=== PATIENT | male | born 1970 | race Caucasian/White ===

== ENCOUNTER 2023-10-17 14:52 | Emergency (ER) | payer MEDICAID, SELFPAY ==
[2023-10-17 14:53] VITALS: PULSE 110; RESP 15; TEMP 36.8; O2SAT 98; BMI 38.0
[2023-10-17 15:00] VITALS: BP 183/115
--- NOTE | 2023-10-17 15:07 | EDS_ITS ---
HPI History of Present Illness Chief Complaint: Dizziness Detail of Chief Complaint: Near syncopal events Informant: patient Onset/Context/Timing Onset: Today and Yesterday Context: Sudden Onset Timing: Intermittent Current Severity: Gone Maximum Severity: Moderate Narrative Narrative: 53-year-old male no significant past medical history but he states he has not seen a doctor for more than 20 years. States he recently started on amoxicillin on Sunday for an infected tooth by his dentist and last night around 7 PM started getting what he calls waves of dizziness where he feels like he might pass out. He denies any nausea, vomiting or diarrhea. He denies any melena. He denies chest pain but he has had exertional dyspnea. He smokes about 1 pack of cigarettes a day for 30 years. Denies any alcohol use for the last 15 years. Denies any recent hospitalization. No recent travel or surgery. Prior similar symptoms: No Recent Illness/Hospitalization: No PFSH PFSH Medical History no medical history no medical history Home Medications amoxicillin 500 mg capsule 500 mg PO TID 10/17/23 [History Last Taken Unknown] lisinopril 20 mg tablet 20 mg PO DAILY 30 days #30 tabs 10/17/23 [Rx Last Taken Unknown] Allergy/AdvReac Type Severity Reaction Status Date / Time morphine Allergy Mild Vomiting Verified 10/17/23 14:56 Penicillins Allergy Mild Hives Verified 10/17/23 14:56 Surgical History no surgical history no surgical history Social History Smoking Status: Current every day smoker tobacco type: cigarettes ROS ROS ED ROS Narrative Waves of dizziness. Exertional dyspnea. Review of Systems ROS Unobtainable: Denies due to encephalopathy Constitutional Constitutional ED: Denies chills or fever(s) Eyes Eyes: Denies blurry vision ENT ENT ED: Denies ear pain Cardiovascular Cardiovascular: Denies chest pain Respiratory/Chest Respiratory/Chest: Reports dyspnea and dyspnea on exertion; Denies cough Gastrointestinal Gastrointestinal: Denies abdominal pain Musculoskeletal Musculoskeletal: Denies arthralgias Integumentary Denies abscess Neurologic Neurologic: Denies headache(s) Psychiatric Psychiatric: Denies anxiety Endocrine Endocrinology: Denies cold intolerance or heat intolerance Hematologic/Lymphatic Hematologic/Lymphatic: Reports none Allergic/Immunologic Allergic/Immunologic ED: Denies mouth swelling, tongue swelling or urticaria EXAM Physical Exam Narrative Exam Narrative: 53-year-old male vital signs stable his pressure is elevated at 183/115. Tachycardic to 110. Pulse ox 90% on room air no signs hypoxia. Afebrile. HEENT exam unremarkable atraumatic. Pupils round reactive light. No droop. Normal speech. Neck nontender. Lungs clear to auscultation bilaterally. Heart tachycardic rate about 110 no murmur. Chest wall and ribs nontender. Abdomen soft nontender. Moving all 4 extremities. Calves are nontender that edema or cords. Neurologically is awake alert with no focal motor deficits. 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 Normal dorsi plantarflexion. Const Vital Signs: 10/17/23 14:53 10/17/23 14:58 10/17/23 15:00 Temperature 98.3 F Temperature Source Oral Pulse Rate 110 H Respiratory Rate 15 Respiratory Effort Normal Non-Labored Respiratory Pattern Normal Blood Pressure 183/115 H Blood Pressure Mean 137 Pulse Ox 98 Oxygen Delivery Method Room Air 10/17/23 15:28 Temperature Temperature Source Pulse Rate Respiratory Rate Respiratory Effort Respiratory Pattern Blood Pressure Blood Pressure Mean Pulse Ox 97 Oxygen Delivery Method Room Air Positive well nourished and well developed; Negative for cachectic, contractures or unkempt General Appearance ED: well developed and NAD; Negative for unkempt, cachectic, contractures, cyanotic, diaphoretic or pallor Nutritional Appearance: Negative for cachectic HEENT Negative for trauma or tenderness Eyes PERRL and EOMs intact bilaterally General Eye ED: Negative for pale conjunctiva, scleral icterus or other Neck no lymphadenopathy, supple and no JVD General: Negative for tenderness Lymph Lymphatic: Negative for other Chest Wall inspection of chest normal and palpation of chest normal Chest: Negative for other Resp normal respiratory effort and clear to auscultation bilaterally Effort and Inspection: Negative for retractions Auscultation: Negative for rales, rhonchi or wheezes Cardio regular rhythm, S1 normal heart sound, S2 normal heart sound and no murmurs; Negative for regular rate Palpation: Negative for palpable S3 or palpable S4 Rate: tachycardic; Negative for bradycardia Rhythm: Negative for abnormal rhythm GI normal to inspection, nondistended, normoactive bowel sounds, non-tender, non- distended and no masses Inspection: Negative for abdominal distention Auscultation: normoactive bowel sounds Palpation: soft; Negative for tender Bladder / Kidney Exam: No other Back/Spine no CVA tenderness General Back: Negative for CVA tenderness Cervical Spine: Negative for cervical spine tenderness Thoracic Spine / Upper Back: Negative for thoracic spinal tenderness Lumbar Spine / Lower Back: Negative for lumbar spinal tenderness Extremity normal to inspection General Extremety ED: Negative for edema or tenderness General Extremity: Negative for edema Neuro oriented x3 and CN's II-XII intact bilaterally Sensorium / Orientation: alert; Negative for orientation impaired, lethargic or stuporous Motor Exam: strength 5/5 throughout Psych mental status grossly normal Appearance: Negative for unkempt Attitude: No agitated Mood & Affect: Negative for depressed, anxious or tearful Skin no rashes or lesions noted, no wounds and skin turgor normal General Skin Exam: elasticity normal; Negative for jaundice or pallor Lesions: No lesion noted Rashes: No rashes noted Trauma: Negative for abrasion Wounds: Negative for wounds noted MDM MDM MDM Narrative Medical decision making narrative: 53-year-old male with near syncopal events the last 24 hours. Exam is benign. He is mildly tachycardic and he is hypertensive. He has not seen a physician for 20 years and is currently on no meds other than amoxicillin for a dental infection. Will undergo cardiac workup. Exam patient is doing well at 4:40 PM. He had a long discussion that he needs to follow-up with primary care physician. He needs to be started on blood pressure medication which he is agreeable to. I will write him a prescription for lisinopril 20 mg once a day and follow-up with [facility] clinic. We discussed the option of being admitted for a stress test he does not want to be admitted. Currently he is concerned with the financial implications of that. And he will follow-up as an outpatient. He knows to return if worse. He knows to stop smoking. History & Record Review Discussion w/independent historian: Patient Additional record(s) reviewed:: No prior records Lab Data Attestation: I reviewed the patient's lab results. Lab results narrative: BC shows a white count 12.8. H&H is 17 and 50. Platelets 271. BMP shows a gap of 5 normal BUN of 9 creatinine of 1. Glucose 121. Troponin is normal at 128. Chest x-ray chronic changes no acute process. Labs: Laboratory Results - last 24 hr 10/17/23 15:30 WBC 12.8 H RBC 5.57 Hgb 17.1 H Hct 50.5 MCV 90.7 MCH 30.7 MCHC 33.9 RDW Std Deviation 41.3 RDW Coeff of Nahomy 12.5 Plt Count 271 MPV 9.8 Immature Gran % (Auto) 0.400 Neut % (Auto) 80.5 H Lymph % (Auto) 11.8 L [place] % (Auto) 5.7 Eos % (Auto) 0.7 Baso % (Auto) 0.9 Absolute Neuts (auto) 10.3 H Absolute Lymphs (auto) 1.50 Nucleated RBC % 0 Sodium 138 Potassium 3.6 Chloride 108 H Carbon Dioxide 25.0 Anion Gap 5 BUN 9 Creatinine 1.01 Estim Creat Clear Calc 103.42 Est GFR (MDRD) Af Amer 100 Est GFR (MDRD) Non-Af 83 BUN/Creatinine Ratio 8.9 L Glucose 121 H Calcium 9.2 Troponin I High Sens 28 Radiography Chest X-Ray - ED: 1 View, Read by ED Physician, Heart, Lungs, Mediastinum, Bony Structures, No Acute Disease and Chronic Changes Diagnostic Testing: Chest x-ray, portable, single view shows no acute abnormality. Normal cardiac silhouette. Normal mediastinum. Single view interpreted by myself. Rhythm Strip Rhythm Strip: Sinus Tach Rate: 107 Ectopy: None EKG Initial EKG: Attestation: I personally reviewed and interpreted this EKG as follows: Interpretation: Sinus Rhythm and No Acute Injury Pattern Comments: Sinus tachycardia rate of 107. No acute signs of an RI or ischemia. No ST elevation. Prior EKG tracings: not available for review Prior: No Prior Discharge Plan Triage Chief Complaint: Dizziness ED Provider: Armaan Agudelo Dx/Rx/DC Orders Clinical Impression: Near syncope, Tobacco use, Hypertension Instructions: ED Hypertension, Established, ED Near-Fainting, Uncertain Cause Prescriptions: New lisinopril 20 mg tablet 20 mg PO DAILY 30 Days Qty: 30 0RF No Action amoxicillin 500 mg capsule 500 mg PO TID Referrals: Burt Landon [Non-Staff] - As soon as possible Activity Restrictions/Additional Instructions: Stop smoking long-term. Long-term work to lose some weight. Call and follow-up with the [facility] starts him in clinic to get a primary care Provider. For the blood pressure medication lisinopril take it 1 to 2 hours prior to bedtime. He will need to follow-up to see if this is controlling her blood pressure well enough or if they will need to change the dose or the medication. Follow-up to get an outpatient stress test due to your risk factors to ensure that you do not have any coronary artery disease or blockage. Disposition Disposition: Home, Self Care
--- NOTE | 2023-10-17 15:09 | ED.RN ---
NO OLD EKG
[2023-10-17 15:28] VITALS: O2SAT 97
[2023-10-17 15:40] LABS: Absolute Neutrophil Count 10.3 X10^3/uL (2.0-7.7); Basophil# 0.11 X10^3/uL; Basophil% 0.9 % (0-1); Eosinophil# 0.09 X10^3/uL; Eosinophils% 0.7 % (0-5); Hematocrit 50.5 % (40-54); Hemoglobin 17.1 g/dL (13.0-16.5); Lymphocyte % 11.8 % (19-41); Mean Corp Hgb Conc 33.9 g/dL (32-36); Mean Corpuscular Hgb 30.7 pg (27.0-32.0); Mean Corpuscular Volume 90.7 fL (80-94); Mean Platelet Vol. 9.8 fl (6.2-12.0); Monocyte# 0.73 X10^3/uL; Monocyte% 5.7 % (0-10); NRBC Flagged by Analyzer 0 % (0-5); Neutrophil # 10.27 X10^3/uL (2.7-7.7); Neutrophil % 80.5 % (47-70); Platelet Count 271 K/mm3 (150-450); RBC Distribution Width CV 12.5 % (11.6-14.6); RBC Distribution Width SD 41.3 fl (35.1-43.9); Red Blood Count 5.57 M/mm3 (4.6-6.2); White Blood Count 12.8 K/mm3 (4.4-11.0)
--- NOTE | 2023-10-17 15:51 | RAD_ITS ---
EXAM: XR CHEST, 1 VIEW CLINICAL INDICATION: chest pain TECHNIQUE: Frontal view of the chest. COMPARISON: No relevant prior studies available. FINDINGS: LUNGS AND PLEURAL SPACES: Unremarkable. No consolidation or edema. No pneumothorax. No effusion. HEART: Unremarkable. Cardiac silhouette not enlarged. MEDIASTINUM: Central airways and mediastinal contour are unremarkable. BONES/JOINTS: Unremarkable. No acute fracture. SOFT TISSUES: Unremarkable. RAD/Chest 1 View (Portable) IMPRESSION: No radiographic evidence of acute cardiopulmonary disease. Electronically Signed: Chivo Rosado MD at 16:38 EST ,
[2023-10-17 15:58] LABS: Anion Gap 5 (5-15); BUN 9 mg/dL (7-18); BUN/Creat Ratio 8.9 RATIO (10-20); Calcium,Total 9.2 mg/dL (8.5-10.1); Chloride 108 mmol/L (98-107); Creatinine, Serum 1.01 mg/dL (0.70-1.30); EST Glomerular Filtration Rate 83 mL/min (>60); Est Glom Filt Rate - Afr Amer 100 mL/min (>60); Estimated Creatinine Clearance 103.42 ml/min; Glucose 121 mg/dL (74-106); Potassium 3.6 mmol/L (3.5-5.1); Sodium Level 138 mmol/L (136-145); Troponin-I HS 28 pg/mL (3.0-78.0)
[2023-10-17 17:12] VITALS: BP 149/49; PULSE 106; RESP 18; O2SAT 100
== END 2023-10-17 17:13 | disposition home or self-care (01) ==
PROVIDERS: Emergency Provider Emergency Medicine; Referring Provider Emergency Medicine; Visit Provider Emergency Medicine
DX: R55 Syncope and collapse (principal); F17.210 Nicotine dependence, cigarettes, uncomplicated; I10 Essential (primary) hypertension; Z79.899 Other long term (current) drug therapy
CPT/HCPCS: 71045; 80048; 84484; 85025; 93005; 99285; J7050; A4216

== ENCOUNTER 2023-11-26 15:26 | Emergency (ER) | payer MEDICAID, SELFPAY ==
[2023-11-26 15:27] VITALS: BP 180/117; PULSE 93; RESP 18; TEMP 36.3; O2SAT 97
--- NOTE | 2023-11-26 16:00 | EKG12_ITS ---
Test Reason : CP Blood Pressure : / mmHG Vent. Rate : 090 BPM Atrial Rate : 090 BPM P-R Int : 154 ms QRS Dur : 100 ms QT Int : 380 ms P-R-T Axes : 051 000 046 degrees QTc Int : 464 ms Normal sinus rhythm Normal ECG Confirmed by MARJ COLE, MIK ([id number]), editorial cartoonist MANUEL GALLAGHER ([id number]) on 11/28/2023 9:15:50 AM Referred By: STEPH/LUIS DANIEL Confirmed By:MIK MCMAHAN MD
--- NOTE | 2023-11-26 16:24 | EDS_ITS ---
HPI History of Present Illness Chief Complaint: Palpitations PFSH PFS Medical History no medical history Home Medications amoxicillin 500 mg capsule 500 mg PO TID 10/17/23 [History Last Taken Unknown] lisinopril 20 mg tablet 20 mg PO DAILY 30 days #30 tabs 10/17/23 [Rx Last Taken Unknown] amoxicillin 875 mg-potassium clavulanate 125 mg tablet 1 tab PO BID #14 tabs 11/26/23 [Rx Last Taken Unknown] Allergy/AdvReac Type Severity Reaction Status Date / Time morphine Allergy Mild Vomiting Verified 11/26/23 15:27 Surgical History no surgical history Social History Smoking Status: Current every day smoker tobacco type: cigarettes EXAM Physical Exam Const Vital Signs: 11/26/23 15:27 11/26/23 16:29 11/26/23 17:36 Temperature 97.4 F L Temperature Source Temporal Pulse Rate 93 87 Respiratory Rate 18 17 Respiratory Effort Blood Pressure 180/117 H 143/98 H Blood Pressure Mean 138 113 Pulse Ox 97 91 Oxygen Delivery Method Room Air Room Air Room Air 11/26/23 17:37 11/26/23 17:38 11/26/23 18:00 Temperature Temperature Source Pulse Rate 81 Respiratory Rate 16 14 Respiratory Effort Normal Non-Labored Blood Pressure 167/100 H Blood Pressure Mean 122 Pulse Ox 94 Oxygen Delivery Method Room Air MDM MDM MDM Narrative Medical decision making narrative: HISTORY OF PRESENT ILLNESS: 53-year-old male presents with concern for palpitations he notes this began approximate hour ago. Notes he had nausea, diarrhea yesterday. He also notes he may have had a fever yesterday. He further states he may have a sinus infection or is concerned about COVID. The patient denies recent surgery in the last 4 weeks or immobilization in the last 3 days, denies previous diagnosis of DVT or PE, hemoptysis, unilateral leg swelling or malignancy with treatment the last 6 months or palliative. No estrogen use noted. No chest pain endorsed. No shortness of breath endorsed. No leg swelling endorsed. Patient also notes congestion, cough and sinus pressure for last month denies headache. REVIEW OF SYSTEMS: Pertinent positives: Palpitations Pertinent negatives: Chest pain, shortness of breath, leg swelling, syncope, focal weakness PHYSICAL EXAM: Nursing triage notes reviewed, Vital signs reviewed Constitutional: please see mdm HENT: MMM, left maxillary sinus TTP, Eyes: Pupils equal round and reactive to light, Extraocular muscles intact Neck: No stridor, no JVD, full neck ROM Lungs: Clear to auscultation, No wheezing or rales. No increased work of breathing, no conversational dyspnea, no accessory muscle use, no nasal flaring. No respiratory distress noted Heart: Regular rate and rhythm, No murmurs, No rubs and No gallops, 2+ distal pulses (radial, femoral, posterior tibial) in all extremities Abdomen: Soft, there is no tenderness, rigidity, rebound or guarding, no obvious peritoneal signs, no palpable pulsatile abdominal masses, no auscultated abdominal bruit : No CVAT Extremities: No edema Neuro: Alert and oriented x3, neuro exam at baseline, cranial nerves II through XII are intact. No pain with extraocular muscle movement. There is negative test of skew. 5 of 5 strength in upper and lower extremities in flexion extension. Intact sensation to light touch in upper and lower extremity dermatomes. No truncal or extremity ataxia. No dysdiadochokinesia. Normal gait. 2+ reflexes in upper and lower extremities. No meningeal signs. Negative Babinski. NIH of 0. Skin: No rash or lesions noted MEDICAL DECISION MAKING: Chief Complaint: Palpitation External records reviewed: No recent cardiac hypertension, stress test or echocardiograms noted in the chart Factors affecting care: none Social determinants of health: Denies illicit drug use History obtained from others: none Consults: none [facility] Narrative: Patient was initially hemodynamically stable, afebrile, nontoxic-appearing. Exam without focal neurodeficits. No focal cardiopulmonary normalities. Auscultation revealed regular rate and rhythm. Initial EKG revealed normal sinus rhythm with no arrhythmias I obtained a broad lab and imaging workup to further elucidate etiology patient complaints To the patient's medical 1 L normal saline I considered the following differential diagnosis: Arrhythmia, anemia, dehydration, electrolyte disturbance myocardial ischema, PE, ALL IMAGES (IF OBTAINED) HAVE BEEN PERSONALLY REVIEWED AND INTERPRETED BY MYSELF. Normal sinus rhythm, normal axis, normal intervals, ST or T wave changes to suggest myocardial ischemia, no evidence of WPW, Brugada, ARVD. Low suspicion for pulmonary embolism causing the patient's palpitations as he is low risk Wells score, no signs of right heart strain on EKG. CBC with leukocytosis, suggestive of systemic inflammation, no anemia or thrombocytopenia BMP without evidence of significant electrolyte abnormalities, no anion gap, no acute kidney injury. High-sensitivity troponin is negative, no evidence of myocardial ischemia I have personally reviewed the patient's chest x-ray. Chest x-ray is unremarkable for pulmonary edema, pneumothorax, pneumonia or focal cardiopulmonary abnormality. the Synthesis patient's history, physical exam, labs images suggest no acute life-limiting etiology. The patient reported for outpatient follow-up Patient complained of upper respiratory tract symptoms, signs infection and dental swelling. Will give prophylactic antibiotics The patient and/or family, caregivers express understanding. The patient and/or family, caregivers agrees with the plan. Shared decision making: I will have a discussion with the patient and or visitors regarding risk/benefits of further testing or admission. They will be made aware of of the risk/benefits inherent in this decision they will be given the opportunity to voice understanding. Total critical care time today provided was at least 0 minutes. This excludes separately billable procedures. Critical care time (if documented) is secondary to the patient having high probability of clinically significant/life threatening deterioration in the patient's condition which required my urgent intervention. Impression: 1. Palpitations 2. Sinus infection Dispo: Discharge Lab Data Labs: Laboratory Results - last 24 hr 11/26/23 11/26/23 16:20 16:30 WBC 12.9 H RBC 5.60 Hgb 17.4 H Hct 51.5 MCV 92.0 MCH 31.1 MCHC 33.8 RDW Std Deviation 43.6 RDW Coeff of Nahomy 12.8 Plt Count 298 MPV 10.1 Immature Gran % (Auto) 0.400 Neut % (Auto) 77.8 H Lymph % (Auto) 12.4 L [place] % (Auto) 6.9 Eos % (Auto) 1.4 Baso % (Auto) 1.1 H Absolute Neuts (auto) 10.0 H Absolute Lymphs (auto) 1.60 Nucleated RBC % 0 Sodium 140 Potassium 3.8 Chloride 107 Carbon Dioxide 26.0 Anion Gap 7 BUN 10 Creatinine 1.03 Estim Creat Clear Calc 125.75 Est GFR (MDRD) Af Amer 98 Est GFR (MDRD) Non-Af 81 BUN/Creatinine Ratio 9.7 L Glucose 116 H Calcium 9.3 Troponin I High Sens 22 Radiography Chest X-Ray - ED: Read by ED Physician Diagnostic Testing: Clinical Impression(s) from Imaging Studies Chest X-Ray 11/26/23 16:50 IMPRESSION: Normal x-ray examination of the chest. Electronically Signed: Jeremiah Prabhakar MD at 17:18 EST , Discharge Plan Triage Chief Complaint: Palpitations Other Complaint: Nausea/Vomiting/Diarrhea ED Provider: Marvin Krishnamurthy Dx/Rx/DC Orders Instructions: Infection, Bacterial Nose/Sinue, ED Palpitations Prescriptions: New amoxicillin-pot clavulanate 875-125 mg tablet 1 tab PO BID Qty: 14 0RF No Action amoxicillin 500 mg capsule 500 mg PO TID lisinopril 20 mg tablet 20 mg PO DAILY 30 Days Qty: 30 0RF Primary Care Provider: Care Physician,No Primary Referrals: Kary Landon [Non-Staff] - Activity Restrictions/Additional Instructions: Thank you for trusting us with your care today! Please take Tylenol (2 pills, 650 mg), ibuprofen (2 pills, 400 mg) every 6 hours as needed for pain and fever control. Please take all antibiotics as prescribed. Please take entire course of course complete Please return to the emergency department if your symptoms change or worsen. Please follow with your primary care physician for further outpatient evaluation and management. Disposition Disposition: Home, Self Care Capacity Legal Marketing Assistant Manager Reflex Medical hold order details:: IF a medical hold is selected below, a suggested order for a MEDICAL HOLD will reflex upon signing the document. Next of kin: [place] law dictates a PRIORITY LIST for identifying legal decision-maker/legal next of kin in the following order (LNOK): 1st: The patient?s legal guardian, if any 2nd: The patient's spouse (if status is questionable, consult Risk Management) 3rd: The patient?s adult child(lazara) (majority, if multiple children) 4th: The patient?s parents 5th: The patient?s adult siblings (majority, if multiple children siblings)
[2023-11-26 16:26] VITALS: BMI 37.2
[2023-11-26 16:29] VITALS: BP 143/98; PULSE 87; RESP 17; O2SAT 91
--- NOTE | 2023-11-26 16:50 | RAD_ITS ---
STUDY: X-RAY CHEST REASON FOR EXAM: Male, 53 years old. chest pain TECHNIQUE: Single AP portable view of the chest. COMPARISON: 10/17/2023 FINDINGS: The lungs are clear and expanded. There is no demonstrated pleural abnormality. Normal size heart. Normal mediastinum and michael. Normal visualized pulmonary arteries. Normal visualized aortic arch and descending thoracic aorta. Normal visualized thoracic spine. Normal visualized ribs, clavicles, and shoulders. There is no demonstrated abnormality of the visualized soft tissue structures of the upper abdomen. RAD/Chest 1 View (Portable) IMPRESSION: Normal x-ray examination of the chest. Electronically Signed: Jeremiah Prabhakar MD at 17:18 [facility] ,
[2023-11-26] MEDS: 0.9% Normal Saline (1000mL) 1,000 ML 1000 ML IV (17:06)
[2023-11-26 17:07] LABS: Basophil# 0.14 X10^3/uL; Basophil% 1.1 % (0-1); Eosinophil# 0.18 X10^3/uL; Eosinophils% 1.4 % (0-5); Hematocrit 51.5 % (40-54); Hemoglobin 17.4 g/dL (13.0-16.5); Lymphocyte % 12.4 % (19-41); Mean Corp Hgb Conc 33.8 g/dL (32-36); Mean Corpuscular Hgb 31.1 pg (27.0-32.0); Mean Platelet Vol. 10.1 fl (6.2-12.0); Monocyte# 0.89 X10^3/uL; Monocyte% 6.9 % (0-10); NRBC Flagged by Analyzer 0 % (0-5); Neutrophil % 77.8 % (47-70); Platelet Count 298 K/mm3 (150-450); RBC Distribution Width CV 12.8 % (11.6-14.6); RBC Distribution Width SD 43.6 fl (35.1-43.9); White Blood Count 12.9 K/mm3 (4.4-11.0)
[2023-11-26 17:22] LABS: Anion Gap 7 (5-15); BUN 10 mg/dL (7-18); BUN/Creat Ratio 9.7 RATIO (10-20); Calcium,Total 9.3 mg/dL (8.5-10.1); Chloride 107 mmol/L (98-107); Creatinine, Serum 1.03 mg/dL (0.70-1.30); EST Glomerular Filtration Rate 81 mL/min (>60); Est Glom Filt Rate - Afr Amer 98 mL/min (>60); Estimated Creatinine Clearance 125.75 ml/min; Glucose 116 mg/dL (74-106); Potassium 3.8 mmol/L (3.5-5.1); Sodium Level 140 mmol/L (136-145); Troponin-I HS 22 pg/mL (3.0-78.0)
[2023-11-26 17:37] VITALS: RESP 16
[2023-11-26 18:00] VITALS: BP 167/100; PULSE 81; RESP 14; O2SAT 94
== END 2023-11-26 18:31 | disposition home or self-care (01) ==
PROVIDERS: Emergency Provider Emergency Medicine; Visit Provider Emergency Medicine
DX: R00.2 Palpitations (principal); R11.2 Nausea with vomiting, unspecified; J32.9 Chronic sinusitis, unspecified; R19.7 Diarrhea, unspecified; F17.210 Nicotine dependence, cigarettes, uncomplicated
CPT/HCPCS: 71045; 80048; 84484; 85025; 87631; 93005; 96360; 99285; J7030; A4216

== ENCOUNTER 2024-02-26 22:01 | Emergency (ER) | payer MEDICAID, SELFPAY ==
[2024-02-26 22:02] VITALS: BP 160/97; PULSE 101; RESP 15; TEMP 36.6; BMI 37.3
--- NOTE | 2024-02-26 23:17 | EDS_ITS ---
HPI History of Present Illness Chief Complaint: Allergic Reaction Informant: patient Onset/Context/Timing Onset: Month(s) Context: Gradual Onset Timing: Intermittent Quality: Swelling Location: Throat Worsened by: Nothing Relieved by: Urination Narrative Narrative: Patient presents with possible allergic reaction that has been intermittent for months. Patient states that all of his symptoms started after he was started on lisinopril and hydrochlorothiazide for his blood pressure. Patient states he has stopped taking the hydrochlorothiazide for the past few days. Patient states he thinks this is all due to his lisinopril. Patient states that tonight he felt like his throat was swelling. Patient states it has gradually gotten worse. Patient states it is starting to improve since he arrived in the emergency department. Patient states it got better when he stood and ambulated to the bathroom and urinated. Patient states nothing makes it worse. Patient admits to some subjective fevers. Patient admits to some bilateral ear pain. Patient also states he is having a cough with some white and clear sputum. [facility] Medical History (Updated 02/27/24 @ 01:[address] Desmond Rincon DO) Hypertension Nasal polyps Home Medications lisinopril 20 mg tablet 20 mg PO DAILY 30 days #30 tabs 10/17/23 [Rx Last Taken Unknown] Allergy/AdvReac Type Severity Reaction Status Date / Time morphine Allergy Mild Vomiting Verified 02/26/24 22:12 Penicillins AdvReac Intermediate Shortness Verified 02/26/24 22:12 of breath Surgical History no surgical history no surgical history Social History (Updated 02/26/24 @ 23:[address] Desmond Rincon DO) Smoking Status: Current every day smoker tobacco type: cigarettes substance use type: marijuana ROS ROS ED Constitutional Constitutional ED: Reports fever(s) and subjective; Denies chills Eyes Eyes: Reports blurry vision; Denies diplopia ENT ENT ED: Reports ear pain left and sore throat; Denies rhinorrhea Cardiovascular Cardiovascular: Reports chest pain and palpitations Respiratory/Chest Respiratory/Chest: Reports cough and dyspnea Gastrointestinal Gastrointestinal: Reports abdominal pain and nausea; Denies vomiting Genitourinary Genitourinary ED: Denies dysuria or hematuria Musculoskeletal Musculoskeletal: Reports back pain and neck pain Integumentary Reports rash Neurologic Neurologic: Reports headache(s) Allergic/Immunologic Allergic/Immunologic ED: Denies mouth swelling or tongue swelling EXAM Physical Exam Const Vital Signs: 02/26/24 22:02 02/26/24 23:25 Temperature 97.8 F Temperature Source Oral Pulse Rate 101 H 93 Respiratory Rate 15 19 H Blood Pressure 160/97 H 138/86 H Blood Pressure Mean 118 103 Pulse Ox 99 Oxygen Delivery Method Room Air Room Air Positive well nourished and well developed General Appearance ED: well developed and NAD HEENT Reports TM's clear and moist mucous membranes HEENT Narrative: Oropharynx is clear. Airway is patent. There is no pharyngeal edema noted. Tympanic Membrane ED: Yes TM's clear bilateral Eyes PERRL and EOMs intact bilaterally Neck supple and no JVD Resp normal respiratory effort and clear to auscultation bilaterally Cardio regular rate and regular rhythm GI non-tender and non-distended Palpation: soft Extremity normal to inspection General Extremety ED: Negative for edema or tenderness General Extremity: Negative for edema Neuro oriented x3, CN's II-XII intact bilaterally and no sensory deficits noted Sensorium / Orientation: alert Motor Exam: strength 5/5 throughout Psych mental status grossly normal Skin no rashes or lesions noted and skin turgor normal MDM MDM MDM Narrative Medical decision making narrative: Differential diagnosis includes medication side effect, electrolyte abnormality, anxiety, allergic reaction, pneumonia, urinary tract infection, and viral illness. Chest x-ray will be obtained to assess for pneumonia and pneumothorax. CBC will be obtained to assess for leukocytosis and anemia. Basic metabolic profile will be obtained to assess for electrolyte abnormality and renal function. Urinalysis will be obtained to assess for urinary tract infection and hematuria. COVID-19, influenza, and RSV PCR will be obtained to assess for viral infection. Lab Data Attestation: I reviewed the patient's lab results. Lab results narrative: CBC was reviewed. There is a mild leukocytosis of 12.1. Hemoglobin was slightly elevated at 17.2. The remainder is essentially within normal limits. Basic metabolic profile was reviewed and was within normal limits. Urinalysis was reviewed. There is no evidence of urinary tract infection or hematuria. COVID-19 PCR was reviewed and was negative. Influenza PCR was reviewed and was negative for influenza A and influenza B. RSV PCR was reviewed and was negative. Labs: Laboratory Results - last 24 hr 02/26/24 02/26/24 22:30 23:50 WBC 12.1 H RBC 5.54 Hgb 17.2 H Hct 50.9 MCV 91.9 MCH 31.0 MCHC 33.8 RDW Std Deviation 42.9 RDW Coeff of Nahomy 12.5 Plt Count 281 MPV 10.3 Immature Gran % (Auto) 0.200 Neut % (Auto) 72.0 H Lymph % (Auto) 17.6 L [place] % (Auto) 7.5 Eos % (Auto) 1.7 Baso % (Auto) 1.0 Absolute Neuts (auto) 8.7 H Absolute Lymphs (auto) 2.12 Nucleated RBC % 0 Sodium 139 Potassium 3.8 Chloride 104 Carbon Dioxide 27.0 Anion Gap 8 BUN 11 Creatinine 1.29 Estim Creat Clear Calc 97.85 Est GFR (MDRD) Af Amer 75 Est GFR (MDRD) Non-Af 62 BUN/Creatinine Ratio 8.5 L Glucose 99 Calcium 9.5 Urine Color Straw Urine Clarity Clear Urine pH 7.0 Ur Specific [place] 1.005 Urine Protein Negative Urine Glucose (UA) Normal Urine Ketones 15 H Urine Occult Blood Negative Urine Nitrite Negative Urine Bilirubin Negative Urine Urobilinogen Normal Ur Leukocyte Esterase Negative Urine RBC 0 SEEN Urine WBC 0 SEEN Ur Squamous Epith Cells 0 SEEN Urine Bacteria 0 SEEN Urine Mucus 0 SEEN Radiography Chest X-Ray - ED: 2 View, Read by ED Physician, Read by Radiologist and No Acute Disease Diagnostic Testing: Clinical Impression(s) from Imaging Studies Chest X-Ray 02/26/24 23:24 IMPRESSION: No acute findings in the chest. Electronically Signed: Surendra Klein MD at 0:53 EDT , PA and lateral chest x-ray was obtained. There are 2 views. On my independent interpretation, lung chapman are clear. There is normal cardiac silhouette. Bony thorax is normal. There is no acute process noted. Radiologist also interpreted the x-ray and agrees. Treatment and Re-Evaluation :: Patient was advised of his findings. Patient was instructed to follow-up with his primary care physician in 3 to 5 days for reevaluation. Patient was also instructed to contact his primary care physician tomorrow to see if his medications need to be changed. Patient was instructed to return if worse in any way. Patient understood and was agreeable with the plan. All questions were answered. Discharge Plan Triage Chief Complaint: Allergic Reaction ED Provider: Desmond Rincon Dx/Rx/DC Orders Clinical Impression: Medication side effect, Hypertension Instructions: ED Drug Reaction, Other Prescriptions: No Action lisinopril 20 mg tablet 20 mg PO DAILY 30 Days Qty: 30 0RF Primary Care Provider: Greer Patel Referrals: Greer Patel, [employer] DEVELOPER-[employer] [Primary Care Provider] - 3-5 Days (Call the office tomorrow to discuss changes in your blood pressure medication) Disposition Disposition: Home, Self Care
--- NOTE | 2024-02-26 23:24 | RAD_ITS ---
EXAM: XR CHEST, 2 VIEWS CLINICAL INDICATION: Cough TECHNIQUE: Frontal and lateral views of the chest. COMPARISON: 11/26/2023. FINDINGS: LUNGS AND PLEURAL SPACES: Unremarkable. No consolidation or edema. No pneumothorax. No effusion. HEART: Unremarkable. Cardiac silhouette not enlarged. MEDIASTINUM: Central airways and mediastinal contour are unremarkable. BONES/JOINTS: Degenerative changes of the spine. No acute fracture. SOFT TISSUES: Unremarkable. RAD/Chest PA and Lateral IMPRESSION: No acute findings in the chest. Electronically Signed: Surendra Klein MD at 0:53 EDT ,
[2024-02-26 23:25] VITALS: BP 138/86; PULSE 93; RESP 19; O2SAT 99
[2024-02-26 23:31] LABS: Absolute Lymphocyte Count 2.12 X10^3/uL (0.83-4.51); Absolute Neutrophil Count 8.7 X10^3/uL (2.0-7.7); Basophil# 0.12 X10^3/uL; Eosinophil# 0.21 X10^3/uL; Eosinophils% 1.7 % (0-5); Hematocrit 50.9 % (40-54); Hemoglobin 17.2 g/dL (13.0-16.5); Lymphocyte # 2.12 X10^3/ul (0.83-4.51); Lymphocyte % 17.6 % (19-41); Mean Corp Hgb Conc 33.8 g/dL (32-36); Mean Corpuscular Volume 91.9 fL (80-94); Mean Platelet Vol. 10.3 fl (6.2-12.0); Monocyte# 0.91 X10^3/uL; Monocyte% 7.5 % (0-10); NRBC Flagged by Analyzer 0 % (0-5); Neutrophil # 8.67 X10^3/uL (2.7-7.7); Platelet Count 281 K/mm3 (150-450); RBC Distribution Width CV 12.5 % (11.6-14.6); RBC Distribution Width SD 42.9 fl (35.1-43.9); Red Blood Count 5.54 M/mm3 (4.6-6.2); White Blood Count 12.1 K/mm3 (4.4-11.0)
[2024-02-26 23:46] LABS: Anion Gap 8 (5-15); BUN 11 mg/dL (7-18); BUN/Creat Ratio 8.5 RATIO (10-20); Calcium,Total 9.5 mg/dL (8.5-10.1); Chloride 104 mmol/L (98-107); Creatinine, Serum 1.29 mg/dL (0.70-1.30); EST Glomerular Filtration Rate 62 mL/min (>60); Est Glom Filt Rate - Afr Amer 75 mL/min (>60); Estimated Creatinine Clearance 97.85 ml/min; Glucose 99 mg/dL (74-106); Potassium 3.8 mmol/L (3.5-5.1); Sodium Level 139 mmol/L (136-145)
[2024-02-27 00:01] LABS: Bacteria 0 SEEN /hpf (None Seen); Mucous, Urine 0 SEEN /hpf (<or=2+); Red Blood Cells-Urine 0 SEEN /hpf (0-5); Squamous Epithelial Cells - UA 0 SEEN /hpf (0-5); White Blood Cells 0 SEEN /hpf (0-5)
[2024-02-27 00:12] LABS: Color, Urine Straw (Yellow); Glucose, Dipstick Normal (Normal); Ketone-Dipstick 15 mg/dl (Negative); Leukocyte Esterase-Dipstick Negative /ul (Negative); Nitrite-Dipstick Negative (Negative); Occult Blood-Urine Negative /ul (Negative); Protein-Dipstick Negative (Negative); Specific Gravity, Urine 1.005 (1.002-1.030); Urine Bilirubin Dipstick Negative (Negative); Urine Clarity Clear (Clear); Urine Urobilinogen Normal (Normal)
[2024-02-27 01:33] VITALS: BP 145/90; PULSE 83; RESP 16; TEMP 36.6; O2SAT 97
== END 2024-02-27 01:35 | disposition home or self-care (01) ==
PROVIDERS: Emergency Provider Emergency Medicine; PCP Nurse Practitioner Family; Visit Provider Emergency Medicine
DX: F17.210 Nicotine dependence, cigarettes, uncomplicated (principal); I10 Essential (primary) hypertension; R07.9 Chest pain, unspecified; R05.9 Cough, unspecified; R06.00 Dyspnea, unspecified; R51.9 Headache, unspecified; Z79.899 Other long term (current) drug therapy; T46.4X5A Adverse effect of angiotensin-converting-enzyme inhibitors, initial encounter
CPT/HCPCS: 71046; 80048; 81001; 85025; 87631; 99284; A4216

== ENCOUNTER 2024-05-27 16:14 | Emergency (ER) | payer MEDICAID, SELFPAY ==
[2024-05-27 16:15] VITALS: BP 171/120; PULSE 123; RESP 18; TEMP 36.6; O2SAT 98; BMI 35.7
--- NOTE | 2024-05-27 16:37 | CT_ITS ---
STUDY: CT ABDOMEN AND PELVIS WITHOUT CONTRAST REASON FOR EXAM: Male, 54 years old. Right flank pain RADIATION DOSAGE (If Supplied By Facility): CTDIvol = ( 21.99 ) mGy, DLP = ( 1085.91 ) mGycm TECHNIQUE: Transaxial images were obtained from the dome of the diaphragm to the symphysis pubis without oral contrast, and without intravenous contrast. Sagittal and coronal images were reconstructed. Individualized dose optimization techniques were used for this CT. COMPARISON: None. FINDINGS: The visualized lung bases are unremarkable. The visualized portions of the heart are within normal limits. Normal liver. The gallbladder is contracted. Normal spleen. Normal pancreas. Normal bilateral adrenal glands. Normal right kidney. Normal left kidney. Normal visualized stomach. Normal small intestine. Normal colon. The appendix is visualized and appears normal. Normal abdominal aorta. Normal inferior vena cava. Normal retroperitoneum. Normal urinary bladder. Normal abdominal wall. Normal osseous structures. CT/Abdomen/Pelvis without Cont IMPRESSION: Normal unenhanced CT of the abdomen and pelvis. Electronically Signed: Jeremiah Prabhakar MD at 17:36 EDT ,
--- NOTE | 2024-05-27 16:38 | EKG12_ITS ---
Test Reason : CP Blood Pressure : / mmHG Vent. Rate : 112 BPM Atrial Rate : 112 BPM P-R Int : 142 ms QRS Dur : 096 ms QT Int : 342 ms P-R-T Axes : 056 -28 056 degrees QTc Int : 466 ms Sinus tachycardia Otherwise normal ECG Confirmed by BLAS COLE, DARLEEN ([id number]), editor managing newspaper MANUEL GALLAGHER ([id number]) on 05/29/2024 10:35:52 A M Referred By: KAREL/CARLA Confirmed By:NELIA ODONNELL MD
--- NOTE | 2024-05-27 16:50 | RAD_ITS ---
STUDY: X-RAY CHEST REASON FOR EXAM: Male, 54 years old. chest pain TECHNIQUE: Single AP portable view of the chest. COMPARISON: 02/26/2024 FINDINGS: The lungs are clear and expanded. There is no demonstrated pleural abnormality. Normal size heart. Normal mediastinum and michael. Normal visualized pulmonary arteries. Normal visualized aortic arch and descending thoracic aorta. Normal visualized thoracic spine. Normal visualized ribs, clavicles, and shoulders. There is no demonstrated abnormality of the visualized soft tissue structures of the upper abdomen. RAD/Chest 1 View (Portable) IMPRESSION: Normal x-ray examination of the chest. Electronically Signed: Jeremiah Prabhakar MD at 17:22 EDT ,
[2024-05-27 16:59] LABS: Absolute Lymphocyte Count 2.22 X10^3/uL (0.83-4.51); Absolute Neutrophil Count 9.4 X10^3/uL (2.0-7.7); Basophil# 0.13 X10^3/uL; Eosinophil# 0.16 X10^3/uL; Eosinophils% 1.2 % (0-5); Hematocrit 51.1 % (40-54); Hemoglobin 17.1 g/dL (13.0-16.5); Lymphocyte # 2.22 X10^3/ul (0.83-4.51); Lymphocyte % 17.3 % (19-41); Mean Corp Hgb Conc 33.5 g/dL (32-36); Mean Corpuscular Hgb 30.4 pg (27.0-32.0); Mean Corpuscular Volume 90.8 fL (80-94); Mean Platelet Vol. 9.9 fl (6.2-12.0); Monocyte# 0.84 X10^3/uL; Monocyte% 6.5 % (0-10); NRBC Flagged by Analyzer 0 % (0-5); Neutrophil % 73.4 % (47-70); Platelet Count 270 K/mm3 (150-450); RBC Distribution Width CV 12.8 % (11.6-14.6); RBC Distribution Width SD 42.5 fl (35.1-43.9); Red Blood Count 5.63 M/mm3 (4.6-6.2); White Blood Count 12.8 K/mm3 (4.4-11.0)
[2024-05-27 17:08] LABS: Anion Gap 6 (5-15); BUN 14 mg/dL (7-18); BUN/Creat Ratio 12.2 RATIO (10-20); Calcium,Total 9.1 mg/dL (8.5-10.1); Chloride 108 mmol/L (98-107); Creatinine, Serum 1.15 mg/dL (0.70-1.30); EST Glomerular Filtration Rate 71 mL/min (>60); Est Glom Filt Rate - Afr Amer 86 mL/min (>60); Estimated Creatinine Clearance 106.08 ml/min; Glucose 111 mg/dL (74-106); Potassium 3.7 mmol/L (3.5-5.1); Sodium Level 140 mmol/L (136-145); Troponin-I HS (w/2H Reflex) 14 pg/mL (3.0-78.0)
[2024-05-27 17:14] VITALS: BP 156/101; PULSE 79; RESP 13; O2SAT 97
[2024-05-27 17:15] LABS: D-Dimer Quantitative (DVT/PE) < 0.27 FEU/ug/m (0.27-0.49)
--- NOTE | 2024-05-27 17:53 | EDS_ITS ---
HPI History of Present Illness Chief Complaint: Chest Pain Narrative Narrative: 54-year-old male presents with multiple somatic complaints. He states that he was supposed to have polyp surgery performed today, but they declined him because he had elevated blood pressure. He quit taking his medications in February because of side effects. He states he used to take lisinopril which caused him anxiety. He was seen by his primary care provider, who recommended that he come to the emergency department to be admitted for stress test because he had chest pain today. Additionally, he states over the last few months, he has had right lower quadrant abdominal pain as well. It is more towards his pelvis. He denies any fevers or chills, no nausea or vomiting, no exacerbating or alleviating symptoms to his right lower quadrant abdominal pain. His chest pain has been relatively constant. He denies any other associated symptoms with this. [facility] Medical History Nasal polyps Hypertension Home Medications ?Medication ?Instructions ?Recorded ?Last Taken ?Type lisinopril 20 mg tablet 20 mg PO DAILY 30 days #30 tabs 10/17/23 Unknown Rx amlodipine 5 mg tablet 5 mg PO DAILY #30 tabs 05/27/24 Unknown Rx Allergy/AdvReac Type Severity Reaction Status Date / Time Sulfa (Sulfonamide Allergy Intermediate Anaphylaxis Verified 05/27/24 16:15 Antibiotics) morphine Allergy Mild Vomiting Verified 05/27/24 16:14 Penicillins AdvReac Intermediate Shortness Verified 05/27/24 16:14 of breath Social History Smoking Status: Current every day smoker tobacco type: cigarettes substance use type: marijuana ROS ROS ED ROS Narrative Constitutional: No fever, no chills. HEENT: No sore throat. No neck pain. No loss of vision. No rhinorrhea. Cardiovascular: Positive chest pain starting this morning at 1030. No palpitations. No pedal edema. Respiratory: No cough, no shortness of breath. Abdominal: Right lower quadrant abdominal pain times months. No nausea. No vomiting. Genitourinary: No dysuria. No hematuria. Musculoskeletal: No myalgias. No arthralgias. Neurologic: No headaches. No dizziness. No lightheadedness. Skin: No rash. No change in color. Psychiatric: No depression. No anxiety. EXAM Physical Exam Narrative Exam Narrative: Afebrile. Vital signs noted. HEENT: Normocephalic. Atraumatic. PERRL, EOMI. Neck soft and supple. No point tenderness or step off. Cardiovascular: Regular rate and rhythm. No murmurs, rubs, or gallops appreciated. Respiratory: No tachypnea. Lungs clear to auscultation bilaterally. Gastrointestinal: Abdomen soft, mild tenderness right lower quadrant, with normoactive bowel sounds. No rebound or guarding. Neurological: Awake. Alert. Nonfocal, nonlateralizing. Skin: No rash. Normal color. No pallor. Musculoskeletal: No pedal edema. Full range of motion extremities. Const Vital Signs: 05/27/24 16:15 05/27/24 16:38 05/27/24 17:14 Temperature 98 F Temperature Source Temporal Pulse Rate 123 H 79 Respiratory Rate 18 13 Blood Pressure 171/120 H 156/101 H Blood Pressure Mean 137 119 Pulse Ox 98 97 Oxygen Delivery Method Room Air Room Air Room Air 05/27/24 18:00 05/27/24 19:00 05/27/24 19:49 Temperature Temperature Source Pulse Rate 71 80 89 Respiratory Rate 16 15 14 Blood Pressure 179/116 H 175/117 H 158/100 H Blood Pressure Mean 137 136 119 Pulse Ox 98 98 98 Oxygen Delivery Method Room Air Room Air Room Air 05/27/24 20:00 Temperature Temperature Source Pulse Rate 77 Respiratory Rate 13 Blood Pressure 155/102 H Blood Pressure Mean 119 Pulse Ox 97 Oxygen Delivery Method Room Air MDM MDM MDM Narrative Medical decision making narrative: In the differential diagnosis for his chest pain is hypertensive urgency versus emergency versus ACS. I have low suspicion for pulmonary embolism based on his history and physical. Regarding his 2 months of right lower quadrant abdominal pain, I have low suspicion for acute appendicitis. This is because of the length of time that he has been having the pain. Also the differential would be abdominal muscle wall strain versus ureterolithiasis. Once again history and physical does not support ureterolithiasis. I reviewed his laboratory work, and he has slightly elevated white count of 12.8 which I think is nonspecific, hemoglobin hemoconcentrated at 17.1 with hematocrit 51.1. D-dimer is negative at less than 0.27 so I doubt pulmonary embolism. Review of his electrolytes shows chloride slightly elevated at 108 which I think is nonspecific. BUN of 14 and creatinine 1.15. Glucose is appropriately elevated at 111. High- sensitivity troponin initially is 14. EKG was obtained and interpreted by myself independently as sinus tachycardia at 112 bpm without ectopy or acute ST changes. No STEMI. Chest x-ray in 1 view interpreted by myself independently shows no evidence of an acute process, no pneumonia or pneumothorax. I reviewed the radiology report which confirms my independent interpretation. Additionally, I reviewed the CT of the abdomen and pelvis radiology report which shows no acute process as well. Repeat vital signs show that his blood pressures come down to 156/101 and his pulse 79. Repeat troponin is 15 for a negative delta troponin. Patient will be given hydralazine 5 mg intravenously and started on amlodipine 5 mg orally here. I do not feel that he needs to be admitted for hypertensive urgency or emergency because his reported blood pressure was above 200 systolic previously. At this point in time, I wrote him a prescription for amlodipine and told him to keep a log of his blood pressure, and follow-up with his primary care provider. I do not feel that he needs to be placed on observation for stress testing. Return instructions to the emergency department were reviewed. Disposition is discharged home in stable condition. Of note, repeat blood pressure was 158 systolic. Disposition is discharged in stable condition. History & Record Review Discussion w/independent historian: Patient Additional record(s) reviewed:: Prior ED visit Lab Data Attestation: I reviewed the patient's lab results. Labs: Laboratory Results - last 24 hr 05/27/24 05/27/24 05/27/24 16:43 18:00 18:45 WBC 12.8 H RBC 5.63 Hgb 17.1 H Hct 51.1 MCV 90.8 MCH 30.4 MCHC 33.5 RDW Std Deviation 42.5 RDW Coeff of Nahomy 12.8 Plt Count 270 MPV 9.9 Immature Gran % (Auto) 0.600 Neut % (Auto) 73.4 H Lymph % (Auto) 17.3 L [place] % (Auto) 6.5 Eos % (Auto) 1.2 Baso % (Auto) 1.0 Absolute Neuts (auto) 9.4 H Absolute Lymphs (auto) 2.22 Nucleated RBC % 0 D-Dimer Quant (PE/DVT) < 0.27 L Sodium 140 Potassium 3.7 Chloride 108 H Carbon Dioxide 26.0 Anion Gap 6 BUN 14 Creatinine 1.15 Estim Creat Clear Calc 106.08 Est GFR (MDRD) Af Amer 86 Est GFR (MDRD) Non-Af 71 BUN/Creatinine Ratio 12.2 Glucose 111 H Calcium 9.1 Troponin I High Sens 14 15 Urine Color Yellow Urine Clarity Clear Urine pH 6.0 Ur Specific [place] 1.010 Urine Protein Negative Urine Glucose (UA) Normal Urine Ketones Negative Urine Occult Blood Negative Urine Nitrite Negative Urine Bilirubin Negative Urine Urobilinogen Normal Ur Leukocyte Esterase Negative Urine RBC 0 SEEN Urine WBC 0-5 SEEN Ur Squamous Epith Cells 0-5 SEEN Urine Bacteria 0 SEEN Urine Mucus 0 SEEN Radiography Diagnostic Testing: Clinical Impression(s) from Imaging Studies Abdomen/Pelvis CT 05/27/24 16:37 IMPRESSION: Normal unenhanced CT of the abdomen and pelvis. Electronically Signed: Jeremiah Prabhakar MD at 17:36 EDT Reading Location ID and State: [id number] / [employer] Tel , Service support , Chest X-Ray 05/27/24 16:50 IMPRESSION: Normal x-ray examination of the chest. Electronically Signed: Jeremiah Prabhakar MD at 17:22 EDT , Discharge Plan Triage Chief Complaint: Chest Pain ED Provider: Fernando Garcia Dx/Rx/DC Orders Clinical Impression: Chest pain, Right flank pain Instructions: ED Chest Pain, Uncertain Cause, ED Flank Pain, Uncertain Cause Prescriptions: New amlodipine 5 mg tablet 5 mg PO DAILY Qty: 30 0RF No Action lisinopril 20 mg tablet 20 mg PO DAILY 30 Days Qty: 30 0RF Primary Care Provider: Greer Patel Referrals: Greer Patel, [employer] STOR[employer] CLERK-C [Primary Care Provider] - 1-2 Days if not improving Activity Restrictions/Additional Instructions: Your cardiac workup was negative here. It was felt that you are stable for outpatient workup/stress test. Keep a log of your blood pressures for your primary care provider. Return with fever, new or worsening symptoms. Print Language: [place] Disposition Disposition: Home, Self Care
[2024-05-27 18:00] VITALS: BP 179/116; PULSE 71; RESP 16; O2SAT 98
[2024-05-27 18:24] LABS: Bacteria 0 SEEN /hpf (None Seen); Mucous, Urine 0 SEEN /hpf (<or=2+); Red Blood Cells-Urine 0 SEEN /hpf (0-5)
[2024-05-27 18:29] LABS: Color, Urine Yellow (Yellow); Glucose, Dipstick Normal (Normal); Ketone-Dipstick Negative (Negative); Leukocyte Esterase-Dipstick Negative /ul (Negative); Nitrite-Dipstick Negative (Negative); Occult Blood-Urine Negative /ul (Negative); Protein-Dipstick Negative (Negative); Urine Bilirubin Dipstick Negative (Negative); Urine Clarity Clear (Clear); Urine Urobilinogen Normal (Normal)
[2024-05-27 18:36] LABS: Squamous Epithelial Cells - UA 0-5 SEEN /hpf (0-5); White Blood Cells 0-5 SEEN /hpf (0-5)
[2024-05-27 18:46] LABS: Reflex Troponin-HS? (from REC) Y
[2024-05-27 19:00] VITALS: BP 175/117; PULSE 80; RESP 15; O2SAT 98
[2024-05-27 19:08] LABS: Troponin-I HS 15 pg/mL (3.0-78.0)
[2024-05-27] MEDS: Ketorolac 15 MG/ML Vial IV (19:24)
[2024-05-27] MEDS: amLODIPine 5 MG Tablet PO (19:31)
[2024-05-27] MEDS: hydrALAZINE 20 MG/ML Vial 5 MG IV (19:33)
[2024-05-27 19:49] VITALS: BP 158/100; PULSE 89; RESP 14; O2SAT 98
[2024-05-27 20:00] VITALS: BP 155/102; PULSE 77; RESP 13; TEMP 36.6; O2SAT 97
== END 2024-05-27 20:18 | disposition home or self-care (01) ==
PROVIDERS: Emergency Provider Emergency Medicine; PCP Nurse Practitioner Family; Visit Provider Emergency Medicine
DX: R07.9 Chest pain, unspecified (principal); F17.210 Nicotine dependence, cigarettes, uncomplicated; I10 Essential (primary) hypertension; R10.31 Right lower quadrant pain; Z79.899 Other long term (current) drug therapy
CPT/HCPCS: 71045; 74176; 80048; 81001; 84484; 85025; 85379; 93005; 96374; 96375; 99284; A4216

== ENCOUNTER 2024-09-28 21:15 | Inpatient (IN) | payer MEDICAID, SELFPAY ==
[2024-09-28 21:15] VITALS: BP 170/120; PULSE 151; RESP 18; TEMP 36.7; O2SAT 97; BMI 33.7
--- NOTE | 2024-09-28 21:36 | EKG12_ITS ---
Test Reason : DYSRHYTHMIA Blood Pressure : */* mmHG Vent. Rate : 124 BPM Atrial Rate : 124 BPM P-R Int : 152 ms QRS Dur : 78 ms QT Int : 306 ms P-R-T Axes : 52 -42 57 degrees QTcB Int : 439 ms Sinus tachycardia Left axis deviation Septal infarct , age undetermined Inferior infarct , age undetermined Abnormal ECG Confirmed by MARJ COLE, MIK ([id number]), commercial production editor ROBERT BERNARD ([id number]) on 09/29/2024 9:56:11 AM Referred By: EDSON Confirmed By: MIK MCMAHAN MD
[2024-09-28 21:52] LABS: Absolute Neutrophil Count 7.9 X10^3/uL (2.0-7.7); Eosinophil# 0.14 X10^3/uL; Eosinophils% 1.4 % (0-5); Hematocrit 49.7 % (40-54); Hemoglobin 17.6 g/dL (13.0-16.5); Lymphocyte % 11.7 % (19-41); Mean Corp Hgb Conc 35.4 g/dL (32-36); Mean Corpuscular Hgb 32.1 pg (27.0-32.0); Mean Corpuscular Volume 90.5 fL (80-94); Mean Platelet Vol. 9.7 fl (6.2-12.0); Monocyte# 0.89 X10^3/uL; Monocyte% 8.7 % (0-10); NRBC Flagged by Analyzer 0 % (0-5); Neutrophil # 7.86 X10^3/uL (2.7-7.7); Neutrophil % 76.8 % (47-70); Platelet Count 275 K/mm3 (150-450); RBC Distribution Width CV 12.2 % (11.6-14.6); RBC Distribution Width SD 40.7 fl (35.1-43.9); Red Blood Count 5.49 M/mm3 (4.6-6.2); White Blood Count 10.2 K/mm3 (4.4-11.0)
[2024-09-28 22:11] LABS: AST(SGOT) 102 U/L (15-37); Alanine Aminotransfer ALT/SGPT 366 U/L (16-61); Albumin, Serum 3.5 g/dL (3.2-5.0); Alkaline Phosphatase 234 U/L (45-117); Anion Gap 10 (5-15); BUN 12 mg/dL (7-18); BUN/Creat Ratio 11.5 RATIO (10-20); Bilirubin, Direct 6.89 mg/dL (0.00-0.30); CPK Total, Creatine Kinase 48 U/L (39-308); Calcium,Total 9.2 mg/dL (8.5-10.1); Chloride 102 mmol/L (98-107); Creatinine, Serum 1.04 mg/dL (0.70-1.30); EST Glomerular Filtration Rate 80 mL/min (>60); Est Glom Filt Rate - Afr Amer 96 mL/min (>60); Estimated Creatinine Clearance 114.04 ml/min; Globulin 3.8 g/dL (2.2-4.2); Glucose 144 mg/dL (74-106); Lipase 118 U/L (13-75); Potassium 3.3 mmol/L (3.5-5.1); Protein, Total 7.3 g/dL (6.4-8.2); Sodium Level 136 mmol/L (136-145); Troponin-I HS 14 pg/mL (3.0-78.0)
--- NOTE | 2024-09-28 22:14 | CT_ITS ---
INDICATION: back pain, chest pain, new jaundice EXAMINATION: CT Chest Abdomen And Pelvis W/ Contrast Injection TECHNIQUE: Helically acquired axial images were obtained of the chest, abdomen, and pelvis with sagittal and coronal reconstructed images. Individualized dose optimization techniques were used for this CT. IV contrast dosage and agent: 100 mL of [id number]-[id number]. Oral contrast: None. COMPARISON: 05/27/2024 CT abdomen/pelvis. FINDINGS: ---Chest: LUNGS, PLEURA AND LARGE AIRWAYS: No consolidation or edema. 2 adjacent 6 mm nodules in the right middle lobe. No pleural effusion. No pneumothorax. THYROID: Unremarkable. HEART AND PERICARDIUM: No evidence of coronary artery calcification. No pericardial effusion. MEDIASTINUM AND GILLIAN: No mediastinal or hilar adenopathy. Esophagus is unremarkable. No hiatal hernia. VESSELS: No thoracic aortic aneurysm or dissection. No obvious central pulmonary embolism although this study was not performed with pulmonary embolism protocol. BONES: No acute abnormality. ---Abdomen/Pelvis: VESSELS: No abdominal aortic aneurysm or dissection. LIVER: No evidence of a mass. Common bile duct measures up to 7 mm proximally. GALLBLADDER: Gallstones are present. The gallbladder is contracted. No evidence of cholecystitis. PANCREAS: No focal solid or cystic mass. No evidence of pancreatitis. SPLEEN: Normal. ADRENAL GLANDS: Normal. KIDNEYS AND URETERS: No urinary tract stone. No hydronephrosis or hydroureter. No significant asymmetric perinephric stranding. URINARY BLADDER: Unremarkable. BOWEL: No evidence of diverticulosis or diverticulitis. Appendix appears normal. No evidence of bowel obstruction. REPRODUCTIVE ORGANS: No evidence of a pelvic mass. PERITONEUM: No intraabdominal free fluid or free air. LYMPH NODES: No pathologically enlarged mesenteric or retroperitoneal lymph nodes. ABDOMINAL WALL: No abdominal or pelvic wall hernia. BONES: No acute abnormality. CT/CT Chest, Abd, Pel w/Contrast IMPRESSION: 1. Intrahepatic duct dilation and mild common bile duct dilation, new as compared to 05/27/2024. Consider follow-up with MRCP. 2. Contracted gallbladder with gallstones. 3. 2 adjacent 6 mm pulmonary nodules in the right middle lobe. Per Fleischner criteria, recommend follow-up CT of the chest in 6-12 months. Electronically Signed: Jose Funes DO at 23:16 EST ,
--- NOTE | 2024-09-28 22:15 | EDS_ITS ---
HPI History of Present Illness Chief Complaint: General Illness Informant: patient Narrative Narrative: Patient is a 54-year-old male with history of hypertension (on amlodipine) presenting with 1 week of worsening symptoms. Patient states he felt good at the beginning of the week. He notes that he did have diarrhea earlier in the week but that seemed to get better. He started feeling unwell 5 days ago and 2 days ago he developed pain in his back between his shoulder blades. He took an amoxicillin and noticed that seemed to get better. Yesterday morning he thought maybe he had bloody urine and since then his urine has been very dark. He notes that he did not really eat anything yesterday and just drink water and felt very nauseous. Has mild but diffuse abdominal discomfort. Denies any associated vomiting. Denies any fever. Yesterday he had a large bowel movement that was very light in color. Today it was also white in color but more diarrhea. He is continue to have significant pain in between his shoulder blades. Today his eyes and skin turned yellow. He notes that intermittently his eyes do seem yellow but it seems to get better. Patient does note that he tends to get heartburn or epigastric discomfort then his chest will feel tight and then radiate to his spine and his right ear and then he will the right sided headache. Has not taken thing for the symptoms. Denies any history of IV drug use. Denies any known history of hepatitis. Has not had a drink of alcohol in 17 years. Denies any known history of pancreatitis. No other complaints or concerns at this time [facility] Medical History Nasal polyps Hypertension Home Medications ?Medication ?Instructions ?Recorded ?Last Taken ?Type lisinopril 20 mg tablet 20 mg PO DAILY 30 days #30 tabs 10/17/23 Unknown Rx amlodipine 5 mg tablet 5 mg PO DAILY #30 tabs 05/27/24 Unknown Rx Allergy/AdvReac Type Severity Reaction Status Date / Time Sulfa (Sulfonamide Allergy Intermediate Anaphylaxis Verified 09/28/24 21:21 Antibiotics) morphine Allergy Mild Vomiting Verified 09/28/24 21:21 Penicillins AdvReac Intermediate Shortness Verified 09/28/24 21:21 of breath Social History Smoking Status: Current every day smoker tobacco type: cigarettes substance use type: marijuana ROS ROS ED Constitutional Constitutional ED: Denies chills or fever(s) Cardiovascular Cardiovascular: Reports chest pain; Denies palpitations Respiratory/Chest Respiratory/Chest: Denies cough or dyspnea Gastrointestinal Gastrointestinal: Reports abdominal pain, diarrhea and nausea; Denies melena or vomiting Musculoskeletal Musculoskeletal: Reports back pain; Denies arthralgias or myalgias Integumentary Reports other Details: Yellow skin discoloration ; Denies rash Neurologic Neurologic: Reports headache(s); Denies paresthesias or weakness Psychiatric Psychiatric: Denies anxiety or depression Hematologic/Lymphatic Hematologic/Lymphatic: Denies easy bleeding or easy bruising EXAM Physical Exam Const Vital Signs: 09/28/24 21:15 Temperature 98.1 F Temperature Source Oral Pulse Rate 151 H Respiratory Rate 18 Blood Pressure 170/120 H Blood Pressure Mean 136 Pulse Ox 97 Positive well nourished and well developed General Appearance ED: well developed and NAD HEENT Reports dry mucous membranes HEENT Narrative: Jaundice discoloration to the inside of the mouth. Mouth ED: Yes dry mucous membranes Mouth: dry mucous membranes Eyes PERRL and EOMs intact bilaterally General Eye ED: Yes scleral icterus Neck supple and no JVD Chest Wall inspection of chest normal and palpation of chest normal Resp normal respiratory effort and clear to auscultation bilaterally Cardio regular rhythm and no murmurs Rate: tachycardic GI normal to inspection, nondistended, normoactive bowel sounds, non-tender and non-distended GI Narrative: No fluid wave appreciated. Nondistended abdomen. No masses. No hepatomegaly on exam. Negative Motta sign however patient seemed have some mild discomfort with gentle palpation of the right upper quadrant. Palpation: soft; Negative for guarding Extremity normal to inspection General Extremety ED: Negative for edema General Extremity: Negative for edema Neuro oriented x3 Sensorium / Orientation: alert Motor Exam: Negative for general weakness Psych mental status grossly normal Skin no rashes or lesions noted and no wounds General Skin Exam: jaundice MDM MDM MDM Narrative Medical decision making narrative: Patient evaluated for generalized malaise, jaundice discoloration, diarrhea and back pain. Differential includes acute hepatitis, obstructive jaundice, choledocholithiasis, cholecystitis, pancreatitis, pneumonia, ACS. Workup including CT of the chest abdomen pelvis given his chest, back and abdominal pain however you have a lower suspicion for dissection given the HPI and timing of the symptoms, EKG, CBC, liver panel, BMP, lipase and troponin. Patient is given Zofran and IV fluids in the emergency room. Lab work mild hemoconcentration with hemoglobin of 17.6 but normal white blood cell count. Platelet counts are normal. Liver panel significant for obstru ctive jaundice with a transaminitis. High-sensitivity troponin is normal at 14 or special for cardiac etiology. Lipase is also mildly elevated at 118. Imaging pending at this time. Patient is now requesting pain medicine. Given dose of fentanyl. Urinalysis has elevated bilirubin to be expected. Case discussed with surgeon on-call, Dr. Palma as I suspect he has an obstructive pathology given his HPL and imaging. CT does show intrahepatic duct dilation and mild common duct elevation new compared to 05/27/2024. Follow-up with MRCP. She recommends patient be admitted to medicine service for follow-up ultrasound in the morning and further management as well as GI consult. Patient is agreeable this plan of care. Patient remains hemodynamically stable in the emergency room. Heart rate does improve with IV fluids and rest. Lab Data Attestation: I reviewed the patient's lab results. Labs: Laboratory Results - last 24 hr 09/28/24 09/28/24 21:40 22:50 WBC 10.2 RBC 5.49 Hgb 17.6 H Hct 49.7 MCV 90.5 MCH 32.1 H MCHC 35.4 RDW Std Deviation 40.7 RDW Coeff of Nahomy 12.2 Plt Count 275 MPV 9.7 Immature Gran % (Auto) 0.400 Neut % (Auto) 76.8 H Lymph % (Auto) 11.7 L Bryan % (Auto) 8.7 Eos % (Auto) 1.4 Baso % (Auto) 1.0 Absolute Neuts (auto) 7.9 H Absolute Lymphs (auto) 1.20 Nucleated RBC % 0 PT 13.4 INR 1.0 APTT 27.9 Sodium 136 Potassium 3.3 L Chloride 102 Carbon Dioxide 25.0 Anion Gap 10 BUN 12 Creatinine 1.04 Estim Creat Clear Calc 114.04 Est GFR (MDRD) Af Amer 96 Est GFR (MDRD) Non-Af 80 BUN/Creatinine Ratio 11.5 Glucose 144 H Calcium 9.2 Total Bilirubin 8.70 H Direct Bilirubin 6.89 H AST 102 H ALT 366 H Alkaline Phosphatase 234 H Total Creatine Kinase 48 Troponin I High Sens 14 Total Protein 7.3 Albumin 3.5 Globulin 3.8 Lipase 118 H Urine Color Yellow Urine Clarity Sl. Cloudy Urine pH 6.5 Ur Specific [place]ell 1.010 Urine Protein Negative Urine Glucose (UA) Normal Urine Ketones 50 H Urine Occult Blood 10 H Urine Nitrite Negative Urine Bilirubin 1 H Urine Urobilinogen 1 H Ur Leukocyte Esterase Negative Urine RBC 0-5 SEEN Urine WBC 0 SEEN Ur Squamous Epith Cells 0-5 SEEN Amorphous Sediment 1+ URATE Urine Bacteria 0 SEEN Urine Mucus 0 SEEN Radiography Diagnostic Testing: Clinical Impression(s) from Imaging Studies Chest/Abdomen/Pelvis CT 09/28/24 22:14 IMPRESSION: 1. Intrahepatic duct dilation and mild common bile duct dilation, new as compared to 05/27/2024. Consider follow-up with MRCP. 2. Contracted gallbladder with gallstones. 3. 2 adjacent 6 mm pulmonary nodules in the right middle lobe. Per Fleischner criteria, recommend follow-up CT of the chest in 6-12 months. Electronically Signed: Jose Funes DO at 23:16 EST , Rhythm Strip Rhythm Strip: Sinus Tach Rate: 124 Ectopy: None EKG Initial EKG: Attestation: I personally reviewed and interpreted this EKG as follows: Interpretation: Sinus Tachycardia Comments: Sinus tachycardia at a rate of 124 bpm Left axis deviation Normal intervals Normal ST segments Compared to prior EKG on 05/27/2024 no acute changes Discharge Plan Triage Chief Complaint: General Illness ED Provider: Sadie Gilbert Dx/Rx/DC Orders Clinical Impression: Obstructive jaundice, Choledocholithiasis, Tachycardia Prescriptions: No Action lisinopril 20 mg tablet 20 mg PO DAILY 30 Days Qty: 30 0RF amlodipine 5 mg tablet 5 mg PO DAILY Qty: 30 0RF Primary Care Provider: Greer Patel Referrals: Greer Patel, LABORATORY SPECIALIST-C [Primary Care Provider] - Print Language: Romanian Disposition Disposition: Acute Care Hospital [facility]
[2024-09-28] MEDS: 0.9% Normal Saline (1000mL) 1,000 ML 999 ML IV (22:23)
[2024-09-28] MEDS: Ondansetron 4 MG/2 ML Vial IV (22:23)
[2024-09-28 22:30] LABS: Prothrombin Time (Protime)PT. 13.4 SECONDS (11.7-14.9)
[2024-09-28 22:31] LABS: Partial Thromboplast Time 27.9 Seconds (24.1-36.2)
[2024-09-28] MEDS: fentaNYL 100 MCG/2 ML Ampul 50 MCG IV (22:48)
[2024-09-28 23:00] LABS: Bacteria 0 SEEN /hpf (None Seen); Mucous, Urine 0 SEEN /hpf (<or=2+); White Blood Cells 0 SEEN /hpf (0-5)
[2024-09-28 23:03] LABS: Color, Urine Yellow (Yellow); Glucose, Dipstick Normal (Normal); Ketone-Dipstick 50 mg/dl (Negative); Leukocyte Esterase-Dipstick Negative /ul (Negative); Nitrite-Dipstick Negative (Negative); Occult Blood-Urine 10 /ul (Negative); Protein-Dipstick Negative (Negative); Urine Clarity Sl. Cloudy (Clear); Urine Urobilinogen 1 mg/dl (Normal); Urine pH 6.5 (5.0 - 8.0)
[2024-09-28 23:11] LABS: Urine Bilirubin Dipstick 1 mg/dL (Negative)
[2024-09-28 23:12] LABS: Amorphous Sediment 1+ URATE; Red Blood Cells-Urine 0-5 SEEN /hpf (0-5); Squamous Epithelial Cells - UA 0-5 SEEN /hpf (0-5)
[2024-09-28 23:15] VITALS: BP 156/100; PULSE 96; RESP 17; O2SAT 98
--- NOTE | 2024-09-28 23:27 | PCM.HP.STD ---
HPI - General General Date of Admission: 09/28/24 Date of Service: 09/28/24 Chief Complaint: Jaundiced, nausea, abdominal pain, diarrhea, abnormal stool appearance. HPI Narrative The patient is a 54 y/o M w/ PMHx: Allergic rhinitis, HTN, Tobacco use, Obesity, Former EtOH abuse (sober nearly 18 years) who presents to the [facility] ED on 09/28/24 with 1 week history of progressively worsening symptoms with initially diarrhea earlier in the week although this seems to have abated with generalized and fatigue with eventual onset of back discomfort between his shoulder blades with onset of dark appearing urine with poor appetite and nausea with mild diffuse abdominal discomfort but no emesis with no fevers with very marte bowel movement initially eventually white appearing and then onset more loose stools with eventual jaundice skin as well as dyspepsia and epigastric discomfort with chest tightness which will radiate into his spine as well as onset of right-sided headache prompting ED evaluation to be cautious. He denies any IV drug abuse. He denies any history of hepatitis. He denies any alcohol intake for nearly 18 years and had been an alcoholic previous to this. In the ED initially he reported his abdominal/back discomfort is 8 out of 10 in severity, currently improved, 2-3 out of 10 in severity. Denies any current nausea. Workup in the ED included T98.1, heart rate 151, BP 170/120, respiratory rate 18, 97%, CBC with WC 10.2, hemoglobin 17.6, platelet 275 with left shift, unremarkable coags, CMP with potassium 3.3, glucose 144, T. bili 8.70, D bili 6.89, AST/LT 102/366, alk phos 234, total creatinine kinase 48, troponin 14, lipase 118, urinalysis with no obvious evidence of UTI, chest/abdomen/pelvis CT with contrast with intra Paddock duct dilatation mild, bile duct dilatation new compared to previously, contracted gallbladder with gallstones, 2 adjacent 6 mm pulmonary nodules in the right middle lobe, EKG with sinus tachycardia with no acute evidence of ischemia. ED physician discussed case with Dr. Palma. [facility] Medical History (Updated 09/28/24 @ 23:[address] Arianna Mccall MD) History of alcohol abuse Tobacco use Allergic rhinitis Nasal polyps Hypertension Home Medications ?Medication ?Instructions ?Recorded ?Last Taken ?Type amlodipine 5 mg tablet 5 mg PO DAILY #30 tabs 05/27/24 Unknown Rx Allergy/AdvReac Type Severity Reaction Status Date / Time Sulfa (Sulfonamide Allergy Intermediate Anaphylaxis Verified 09/28/24 21:21 Antibiotics) morphine Allergy Mild Vomiting Verified 09/28/24 21:21 Penicillins AdvReac Intermediate Shortness Verified 09/28/24 21:21 of breath Family History (Updated 09/29/24 @ 00:[address] Arianna Mccall MD) Mother Breast cancer age 66 with metastatic breast CA. Father CAD (coronary artery disease) [place] age 35, age 52 secondary to cardiac event. Myocardial infarction [place] age 35, age 52 secondary to cardiac event. Hypertension Heart disease Surgical History (Updated 09/28/24 @ 23:[address] Arianna Mccall MD) History of oral surgery Social History (Updated 09/29/24 @ 00:[address] Arianna Mccall MD) household members: other details: His 93 y/o aunt lives with him and he cares for her. Smoking Status: Current every day smoker tobacco type: cigarettes Smoking packs per day: 0.75 Smoking cigarettes per day: 15.0 alcohol intake: former details: Sober x ~ 18 years (09/2024 evaluation) substance use type: marijuana ROS ROS Narrative Admission Review of Systems: CONSTITUTIONAL: No weight loss, fever, chills, +weakness or fatigue. HEENT: + Scleral icterus, headache. Eyes: No visual loss, blurred vision, double vision. Ears, Nose, Throat: No hearing loss, sneezing, congestion, runny nose or sore throat. SKIN: No rash or itching, lesions, wounds except significantly + jaundiced appearance. CARDIOVASCULAR: + Chest pain. No palpitations, edema, orthopnea, syncopal events. RESPIRATORY: No shortness of breath, cough or sputum, wheezing, hemoptysis. GASTROINTESTINAL: + Anorexia, nausea, abdominal pain, diarrhea, altered stool appearance initially marte now white. No melena or BRBPR. GENITOURINARY: + Extremely dark appearing urine. No dysuria, frequency, urgency or retention. NEUROLOGICAL: + Headache. Dizziness, syncope, paralysis, ataxia, numbness or tingling in the extremities, focal weakness, change in bowel or bladder control, seizure. MUSCULOSKELETAL: + muscle, back pain, joint pain or stiffness. HEMATOLOGIC: No anemia, bleeding or bruising. LYMPHATICS: No enlarged nodes. No history of splenectomy. PSYCHIATRIC: No history of depression or anxiety. ENDOCRINOLOGIC: No reports of sweating, cold or heat intolerance. No polyuria or polydipsia. ALLERGIES: No history of asthma, hives, eczema or rhinitis. Vital Signs Vital Signs Vital Signs: 09/28/24 21:15 09/28/24 23:15 Temperature 98.1 F Temperature Source Oral Pulse Rate 151 H 96 Respiratory Rate 18 17 Blood Pressure 170/120 H 156/100 H Blood Pressure Mean 136 118 Pulse Ox 97 98 Oxygen Delivery Method Room Air Weight Weight: 263 lb Body Mass Index (BMI) 33.7 Physical Exam Narrative Physical Examination: General: Awake, alert, oriented x 3 and cooperative, laying in the ED bed, fatigued, appears comfortable, pain improving. Skin: Jaundiced color, normal turgor, no cyanosis, scleral icterus present. HEENT: AT/NC, EOMI, PERRLA, mildly dry MM, no carotid bruits or JVD noted. Lungs: Mildly diminished, greater bases, appropriate effort, no rales, ronchi or wheezing. Heart: Mildly tachycardic with regular rhythm; no gallop, rub audible. Abdomen: Soft, mild generalized discomfort primarily in the upper quadrants but no rebound or guarding, nondistended, mildly hyperactive BS, no appreciated HSM. Extremities: No cyanosis, clubbing, or edema. Neurological: Patient awake, alert, oriented as noted, cognitive function intact; pupils equally reactive to light and accommodation, cranial nerves gross normal, moving all 4 extremities, no focal deficits, strength mildly to moderately globally creased secondary to acute complaints. Psychiatric: Affect appears fatigued, despite pain complaints does not appear severely uncomfortable, no acute evidence of depressive or anxiety feelings. Results Lab / Micro Data 09/28/24 21:40 09/28/24 21:40 Labs: Laboratory Results - last 24 hr 09/28/24 21:40: WBC 10.2, RBC 5.49, Hgb 17.6 H, Hct 49.7, MCV 90.5, MCH 32.1 H, MCHC 35.4, RDW Std Deviation 40.7, RDW Coeff of Nahomy 12.2, Plt Count 275, MPV 9.7, Immature Gran % (Auto) 0.400, Neut % (Auto) 76.8 H, Lymph % (Auto) 11.7 L, Rich % (Auto) 8.7, Eos % (Auto) 1.4, Baso % (Auto) 1.0, Absolute Neuts (auto) 7.9 H, Absolute Lymphs (auto) 1.20, Nucleated RBC % 0, PT 13.4, INR 1.0, APTT 27.9, Sodium 136, Potassium 3.3 L, Chloride 102, Carbon Dioxide 25.0, Anion Gap 10, BUN 12, Creatinine 1.04, Estim Creat Clear Calc 114.04, Est GFR (MDRD) Af Amer 96, Est GFR (MDRD) Non-Af 80, BUN/Creatinine Ratio 11.5, Glucose 144 H, Calcium 9.2, Total Bilirubin 8.70 H, Direct Bilirubin 6.89 H, AST 102 H, ALT 366 H, Alkaline Phosphatase 234 H, Total Creatine Kinase 48, Troponin I High Sens 14, Total Protein 7.3, Albumin 3.5, Globulin 3.8, Lipase 118 H 09/28/24 22:50: Urine Color Yellow, Urine Clarity Sl. Cloudy, Urine pH 6.5, Ur Specific Doland 1.010, Urine Protein Negative, Urine Glucose (UA) Normal, Urine Ketones 50 H, Urine Occult Blood 10 H, Urine Nitrite Negative, Urine Bilirubin 1 H, Urine Urobilinogen 1 H, Ur Leukocyte Esterase Negative, Urine RBC 0-5 SEEN, Urine WBC 0 SEEN, Ur Squamous Epith Cells 0-5 SEEN, Amorphous Sediment 1+ URATE, Urine Bacteria 0 SEEN, Urine Mucus 0 SEEN Rhythm Strip Rhythm Strip: Sinus Tach Rate: 124 Ectopy: None Imaging Radiology Impression Chest/Abdomen/Pelvis CT 09/28/24 22:14 IMPRESSION: 1. Intrahepatic duct dilation and mild common bile duct dilation, new as compared to 05/27/2024. Consider follow-up with MRCP. 2. Contracted gallbladder with gallstones. 3. 2 adjacent 6 mm pulmonary nodules in the right middle lobe. Per Fleischner criteria, recommend follow-up CT of the chest in 6-12 months. Electronically Signed: Jose Funes DO at 23:16 EST , Assessment & Plan Assessment/Plan (1) Choledocholithiasis: (2) Obstructive jaundice: PLAN: Plan The patient is a 54 y/o M w/ PMHx: Allergic rhinitis, HTN, Tobacco use, Obesity, Former EtOH abuse (sober nearly 18 years) who presents to the [facility] ED on 09/28/24 with 1 week history of progressively worsening symptoms with initially diarrhea earlier in the week although this seems to have abated with generalized and fatigue with eventual onset of back discomfort between his shoulder blades with onset of dark appearing urine with poor appetite and nausea with mild diffuse abdominal discomfort but no emesis with no fevers with very marte bowel movement initially eventually white appearing and then onset more loose stools with eventual jaundice skin as well as dyspepsia and epigastric discomfort with chest tightness which will radiate into his spine as well as onset of right-sided headache prompting ED evaluation to be cautious. #1. Abdominal pain, nausea without emesis, jaundiced appearance with significant hyperbilirubinemia, transaminitis with intrahepatic duct dilatation and mild common bile duct dilatation with a contracted gallbladder with gallstones noted, suspected result of obstructive jaundice with choledocholithiasis: Will admit to medical surgical floor, will maintain on IV fluids, will continue to trend CBC, BMP and hepatic profile, hepatitis panel requested to be cautious, will continue consultation with general surgery, will request consultation with gastroenterology, will request GB US but may require MRCP although more likely suspect will need ERCP per GI, will maintain NPO status, will maintain on IV PPI, as needed pain regimen/antiemetics regimen. Procalcitonin requested. #2. Incidental pulmonary nodules: CT chest/abdomen/pelvis with 2 adjacent 6 mm pulmonary nodules in the right middle lobe, will need follow-up CT imaging outpatient. #3. Hypokalemia, potentially false given slightly hemolyzed: Admission potassium 3.3 however mildly hemolyzed, will hold off on supplementation and repeat level in the a.m. with supplementation if noted to be low at that time. #4. Hyperglycemia, possibly stress response: Admission glucose elevated 144, suspect stress response given presentation, will obtain he will A1c be cautious. #5. Hypertension: Continue home regimen including lisinopril, amlodipine, PRN hydralazine. #6. Tobacco Abuse: Encouraged cessation, inpatient consultation per RT, NR if desired. #7. Former alcohol abuse: Sober nearly 18 years, encourage continued sobriety. #8. Obesity: Weight loss and lifestyle changes encouraged. #9. Allergic rhinitis: Per current list does not appear to be on regimen, notes intermittent issues, encourage continued outpatient follow-up as previously arranged. #10. DVT prophylaxis: SCDs, defer chemoprophylaxis given likely may need GI intervention in AM. Charges/Coding Visit Charges Inpatient E&M: 41516 Init Hosp L3
--- NOTE | 2024-09-28 23:35 | US_ITS ---
INDICATION: Obstructive jaundice EXAMINATION: Ultrasound US right upper quadrant. TECHNIQUE: Mccauley scale and color doppler imaging was performed of the right upper quadrant. COMPARISON: 09/28/2024 CT. FINDINGS: LIVER: Normal echotexture. No evidence of a mass. Intrahepatic duct dilation. GALLBLADDER: Contracted with multiple stones. Wall thickening measuring 6 mm. No pericholecystic fluid. A sonographic Motta''s sign was present. COMMON BILE DUCT: Dilated measuring 10 mm in diameter. PANCREAS: Not well-visualized due to overlying bowel gas. RIGHT KIDNEY: Unremarkable. FREE FLUID: No free fluid in the right upper quadrant. US/Gallbladder IMPRESSION: 1. Contracted gallbladder with multiple gallstones, gallbladder wall thickening and a positive sonographic Motta''s sign consistent with acute cholecystitis. 2. Intrahepatic duct dilation and common bile duct dilation. Consider follow-up with MRCP. Electronically Signed: Jose Funes DO at 7:42 EST ,
[2024-09-28 23:51] VITALS: BP 172/100; PULSE 97; RESP 18; TEMP 36.9; O2SAT 95
[2024-09-29] VITALS (18 sets, daily range): BP systolic 145–168; BP diastolic 89–110; PULSE 63–119; RESP 12–20; TEMP 36.5–37.1; O2SAT 94–99; BMI 33.3
[2024-09-29 00:33] LABS: Procalcitonin 0.14 ng/mL (0.00-0.09)
[2024-09-29] MEDS: 0.9% Normal Saline (1000mL) 1,000 ML 999 ML IV (01:09)
[2024-09-29] MEDS: HYDROmorphone 0.5 MG/0.5 ML SYRINGE IV (01:25)
[2024-09-29] MEDS: 0.9% Saline Lock 10 ML Syringe IV ×2 (01:25→08:06)
[2024-09-29] MEDS: 0.9% Normal Saline (1000mL) 1,000 ML 100 ML IV (02:23)
[2024-09-29] MEDS: Pantoprazole Sodium 40 MG in 0.9% Normal Saline (100mL MB+) 100 ML 330 MG IV ×2 (02:25→09:46)
[2024-09-29] MEDS: oxyCODONE 5 MG Tablet PO ×2 (02:31→16:50)
[2024-09-29] MEDS: Acetaminophen 325 MG Tablet 650 MG PO (02:31)
[2024-09-29 07:05] LABS: Absolute Lymphocyte Count 1.52 X10^3/uL (0.83-4.51); Basophil# 0.09 X10^3/uL; Basophil% 0.9 % (0-1); Eosinophil# 0.28 X10^3/uL; Eosinophils% 2.8 % (0-5); Hematocrit 46.7 % (40-54); Hemoglobin 15.9 g/dL (13.0-16.5); Lymphocyte # 1.52 X10^3/ul (0.83-4.51); Mean Corpuscular Hgb 31.3 pg (27.0-32.0); Mean Corpuscular Volume 91.9 fL (80-94); Monocyte# 1.21 X10^3/uL; Monocyte% 11.9 % (0-10); NRBC Flagged by Analyzer 0 % (0-5); Neutrophil # 7.01 X10^3/uL (2.7-7.7); Platelet Count 250 K/mm3 (150-450); RBC Distribution Width CV 12.4 % (11.6-14.6); RBC Distribution Width SD 41.9 fl (35.1-43.9); Red Blood Count 5.08 M/mm3 (4.6-6.2); White Blood Count 10.2 K/mm3 (4.4-11.0)
[2024-09-29 07:37] LABS: AST(SGOT) 100 U/L (15-37); Alanine Aminotransfer ALT/SGPT 308 U/L (16-61); Albumin, Serum 3.1 g/dL (3.2-5.0); Alkaline Phosphatase 196 U/L (45-117); Anion Gap 8 (5-15); BUN 9 mg/dL (7-18); Bilirubin, Direct 5.81 mg/dL (0.00-0.30); Calcium,Total 8.6 mg/dL (8.5-10.1); Chloride 108 mmol/L (98-107); Creatinine, Serum 0.82 mg/dL (0.70-1.30); EST Glomerular Filtration Rate 105 mL/min (>60); Est Glom Filt Rate - Afr Amer 127 mL/min (>60); Estimated Creatinine Clearance 143.61 ml/min; Globulin 3.1 g/dL (2.2-4.2); Glucose 90 mg/dL (74-106); Potassium 3.4 mmol/L (3.5-5.1); Protein, Total 6.2 g/dL (6.4-8.2); Sodium Level 140 mmol/L (136-145)
[2024-09-29] MEDS: amLODIPine 5 MG Tablet PO (07:58)
[2024-09-29] MEDS: hydrALAZINE 20 MG/ML Vial 10 MG IV (08:06)
--- NOTE | 2024-09-29 08:10 | CON.PCM.SX_ITS ---
Assessment & Plan Assessment/Plan (1) Choledocholithiasis: PLAN: I have been consulted in conjunction with Dr. Palma. She will independently evaluate this patient. Patient is a 54 y/o M who presents with a 3 day history of worsening obstructive jaundice, right upper quadrant tenderness, change in bowel habits and urinary habits. CT scan of ab/pel concerning for choledocholithiasis. RUQ u/s also obtained and concerning for acute cholecystitis. Dr. Rendon has been consulted to perform an ERCP with possible stone removal and stent placement. Dr. Palma will plan to perform a laparoscopic cholecystectomy with intraoperative cholangiogram. Will need to discuss timing of the procedure with the operating room and coordinate procedure with Dr. Palma's schedule. Patient's blood work was reviewed. Liver enzymes have slightly decreased this morning. Procedure details and timing will be discussed with the patient later today, once we hear back from the OR. Patient has had the opportunity to ask and have questions answered. Patient verbally understands and agrees with the plan. Thank you for allowing us to participate in this patient's care. HPI Consult Data Date of Consult: 09/29/24 HPI Narrative Reason for Consultation: Choledocholithiasis HPI Narrative: KAREN CESAR, is a 54 M who presents with a 3 day history of Jaundiced eyes and skin and upper back pain. Patient stated he had shoulder blade pain and mid back pain on Sunday. He states he has had this before and thought it was muscled related. He noted typically he would fast and this would relieve the discomfort. He fasted all day Sunday without any relief. He notes lack of appetite over the weekend. He states his urine started turning orange in color and noted steve- colored stools. He noted nausea, however no vomiting. Patient states he felt stomach pain in the deep pit of his stomach, however he has also been stressed recently. He notes similar symptoms as above for approximately 1 year, besides the jaundice coloring. He denies any fever associated with the symptoms. He notes a feeling of trapped gas within his abdomen. He notes intentionally loosing 40 pounds approximately since the beginning of this year by changing his diet. He denies any weight loss medications. He has also noted chest pain or a feeling of heartburn. Patient denies any previous abdominal surgeries. He notes only procedures has been dental procedures under local numbing medication. He denies any cardiac history, myocardial infarction, stroke, blood clots previously. He denies any lung history. He has an allergy to PCN and sulfa antibiotics along with Lisinopril. He is currently taking Norvasc for blood pressure, as well as Flonase and multivitamin. He is unaware of any previous gallbladder issues. CT scan of ab/pel completed in the ED demonstrated: IMPRESSION: 1. Intrahepatic duct dilation and mild common bile duct dilation, new as compared to 05/27/2024. Consider follow-up with MRCP. 2. Contracted gallbladder with gallstones. 3. 2 adjacent 6 mm pulmonary nodules in the right middle lobe. Per Fleischner criteria, recommend follow-up CT of the chest in 6-12 months. RUQ u/s demonstrated: IMPRESSION: 1. Contracted gallbladder with multiple gallstones, gallbladder wall thickening and a positive sonographic Motta's sign consistent with acute cholecystitis. 2. Intrahepatic duct dilation and common bile duct dilation. Consider follow-up with MRCP. [facility] Medical History (Updated 09/28/24 @ 23:[address] Arianna Mccall MD) History of alcohol abuse Tobacco use Allergic rhinitis Nasal polyps Hypertension Home Medications ?Medication ?Instructions ?Recorded ?Last Taken ?Type amlodipine 5 mg tablet 5 mg PO DAILY #30 tabs 05/27/24 Unknown Rx Allergy/AdvReac Type Severity Reaction Status Date / Time lisinopril Allergy Severe FELT LIKE Verified 09/29/24 00:55 THROAT WAS SWELLING SHUT Sulfa (Sulfonamide Allergy Intermediate Anaphylaxis Verified 09/28/24 21:21 Antibiotics) morphine Allergy Mild Vomiting Verified 09/28/24 21:21 Penicillins AdvReac Intermediate Shortness Verified 09/28/24 21:21 of breath amoxicillin AdvReac Mild TWITCHING Verified 09/29/24 00:52 Family History (Updated 09/29/24 @ 00:[address] Arianna Mccall MD) Mother Breast cancer age 66 with metastatic breast CA. Father CAD (coronary artery disease) First HI age 35, age 52 secondary to cardiac event. Myocardial infarction First HI age 35, age 52 secondary to cardiac event. Hypertension Heart disease Surgical History (Updated 09/28/24 @ 23:[address] Arianna Mccall MD) History of oral surgery Social History (Updated 09/29/24 @ 00:[address] Arianna Mccall MD) household members: other details: His 93 y/o aunt lives with him and he cares for her. Smoking Status: Current every day smoker tobacco type: cigarettes Smoking packs per day: 0.75 Smoking cigarettes per day: 15.0 alcohol intake: former details: Sober x ~ 18 years (09/2024 evaluation) substance use type: marijuana ROS Constitutional Constitutional: Reports systems reviewed and no addt'l complaints, except as documented Eyes Eyes: Reports systems reviewed and no addt'l complaints, except as documented ENT HEENT: Reports systems reviewed and no addt'l complaints, except as documented Cardiovascular Cardiovascular: Reports systems reviewed and no addt'l complaints, except as documented Respiratory/Chest Respiratory/Chest: Reports systems reviewed and no addt'l complaints, except as documented Gastrointestinal Gastrointestinal: Reports systems reviewed and no addt'l complaints, except as documented Genitourinary Genitourinary: Reports systems reviewed and no addt'l complaints, except as documented Musculoskeletal Musculoskeletal: Reports systems reviewed and no addt'l complaints, except as documented Integumentary Integumentary: Reports systems reviewed and no addt'l complaints, except as documented Neurologic Neurologic: Reports systems reviewed and no addt'l complaints, except as documented Psychiatric Psychiatric: Reports systems reviewed and no addt'l complaints, except as documented Endocrine Endocrinology: Reports systems reviewed and no addt'l complaints, except as documented Hematologic/Lymphatic Hematologic/Lymphatic: Reports systems reviewed and no addt'l complaints, except as documented Allergic/Immunologic Allergic/Immunologic: Reports systems reviewed and no addt'l complaints, except as documented Physical Exam Const alert, oriented x3 and no apparent distress HEENT normocephalic and head/scalp atraumatic Eyes PERRL and EOMs intact bilaterally Neck full ROM Lymph Lymphatic: no lymphadenopathy noted Chest inspection of chest normal Resp normal respiratory effort and clear to auscultation bilaterally Cardio regular rate and regular rhythm GI GI Narrative: Abdomen- soft, non-distended, slight tenderness in the RUQ with palpation. Positive Motta's sign. Positive bowel sounds. no CVA tenderness Back/Spine no CVA tenderness Extremity normal to inspection Skin no rashes or lesions noted Neuro no focal motor deficits and no sensory deficits noted Psych mental status grossly normal, thought process normal, cooperative, affect normal and speech normal Lab / Micro Data 09/29/24 06:44 09/29/24 06:44 Labs: Laboratory Results - last 24 hr 09/28/24 21:40: WBC 10.2, RBC 5.49, Hgb 17.6 H, Hct 49.7, MCV 90.5, MCH 32.1 H, MCHC 35.4, RDW Std Deviation 40.7, RDW Coeff of N[place] 12.2, Plt Count 275, MPV 9.7, Immature Gran % (Auto) 0.400, Neut % (Auto) 76.8 H, Lymph % (Auto) 11.7 L, [place] % (Auto) 8.7, Eos % (Auto) 1.4, Baso % (Auto) 1.0, Absolute Neuts (auto) 7.9 H, Absolute Lymphs (auto) 1.20, Nucleated RBC % 0, PT 13.4, INR 1.0, APTT 27.9, Sodium 136, Potassium 3.3 L, Chloride 102, Carbon Dioxide 25.0, Anion Gap 10, BUN 12, Creatinine 1.04, Estim Creat Clear Calc 114.04, Est GFR (MDRD) Af Amer 96, Est GFR (MDRD) Non-Af 80, BUN/Creatinine Ratio 11.5, Glucose 144 H, Calcium 9.2, Total Bilirubin 8.70 H, Direct Bilirubin 6.89 H, AST 102 H, ALT 366 H, Alkaline Phosphatase 234 H, Total Creatine Kinase 48, Troponin I High Sens 14, Total Protein 7.3, Albumin 3.5, Globulin 3.8, Lipase 118 H 09/28/24 22:50: Urine Color Yellow, Urine Clarity Sl. Cloudy, Urine pH 6.5, Ur Specific [place] 1.010, Urine Protein Negative, Urine Glucose (UA) Normal, Urine Ketones 50 H, Urine Occult Blood 10 H, Urine Nitrite Negative, Urine Bilirubin 1 H, Urine Urobilinogen 1 H, Ur Leukocyte Esterase Negative, Urine RBC 0-5 SEEN, Urine WBC 0 SEEN, Ur Squamous Epith Cells 0-5 SEEN, Amorphous Sediment 1+ URATE, Urine Bacteria 0 SEEN, Urine Mucus 0 SEEN 09/28/24 23:40: Procalcitonin 0.14 H 09/29/24 06:44: WBC 10.2, RBC 5.08, Hgb 15.9, Hct 46.7, MCV 91.9, MCH 31.3, MCHC 34.0, RDW Std Deviation 41.9, RDW Coeff of Nahomy 12.4, Plt Count 250, MPV 10.0, Immature Gran % (Auto) 0.400, Neut % (Auto) 69.0, Lymph % (Auto) 15.0 L, [place] % (Auto) 11.9 H, Eos % (Auto) 2.8, Baso % (Auto) 0.9, Absolute Neuts (auto) 7.0, Absolute Lymphs (auto) 1.52, Nucleated RBC % 0, Sodium 140, Potassium 3.4 L, C hloride 108 H, Carbon Dioxide 24.0, Anion Gap 8, BUN 9, Creatinine 0.82, Estim Creat Clear Calc 143.61, Est GFR (MDRD) Af Amer 127, Est GFR (MDRD) Non-Af 105, BUN/Creatinine Ratio 11.0, Glucose 90, Calcium 8.6, Total Bilirubin 7.70 H, D irect Bilirubin 5.81 H, AST 100 H, ALT 308 H, Alkaline Phosphatase 196 H, Total Protein 6.2 L, Albumin 3.1 L, Globulin 3.1 Rhythm Strip Rhythm Strip: Sinus Tach Rate: 124 Ectopy: None Imaging Radiology Impression Chest/Abdomen/Pelvis CT 09/28/24 22:14 IMPRESSION: 1. Intrahepatic duct dilation and mild common bile duct dilation, new as compared to 05/27/2024. Consider follow-up with MRCP. 2. Contracted gallbladder with gallstones. 3. 2 adjacent 6 mm pulmonary nodules in the right middle lobe. Per Fleischner criteria, recommend follow-up CT of the chest in 6-12 months. Electronically Signed: Jose Funes DO at 23:16 EST , Gallbladder Ultrasound 09/28/24 23:35 IMPRESSION: 1. Contracted gallbladder with multiple gallstones, gallbladder wall thickening and a positive sonographic Motta''s sign consistent with acute cholecystitis. 2. Intrahepatic duct dilation and common bile duct dilation. Consider follow-up with MRCP. Electronically Signed: Jose Funes DO at 7:42 EST , Charges/Coding Visit Charges Inpatient E&M: 50652 Init Hosp L2
[2024-09-29 08:27] LABS: Hemoglobin A1c 4.8 % (3.8-5.6)
[2024-09-29] MEDS: metroNIDAZOLE 500 MG/100 ML BAG 100 MG IV ×2 (10:09→21:25)
--- NOTE | 2024-09-29 10:28 | PCM.PN.HOSP ---
Reason for Visit Reason for Visit: Diagnoses Calculus of bile duct without cholangitis or cholecystitis without obstruction (09/28/24) Obstruction of bile duct (09/28/24) Objective Data Objective Data Vital Signs: Vital Signs Temp Pulse Resp BP Pulse Ox O2 Del Method 97.7 F L 100 18 154/91 H 94 Room Air 09/29/24 07:55 09/29/24 09:50 09/29/24 07:55 09/29/24 09:50 09/29/24 07:55 09/29/24 08:06 Oxygen Delivery Method Room Air Weight: 259 lb 3 oz Body Mass Index (BMI) 33.3 Intake & Output: Intake and Output for Last 24 Hours 09/27/24 09/28/24 09/29/24 23:59 23:59 23:59 Intake Total 1000 / 1000 1929 Balance 1000 / 1000 1929 Lab / Micro Data 09/29/24 06:44 09/29/24 06:44 Labs: Laboratory Results - last 24 hr 09/28/24 21:40: WBC 10.2, RBC 5.49, Hgb 17.6 H, Hct 49.7, MCV 90.5, MCH 32.1 H, MCHC 35.4, RDW Std Deviation 40.7, RDW Coeff of Nahomy 12.2, Plt Count 275, MPV 9.7, Immature Gran % (Auto) 0.400, Neut % (Auto) 76.8 H, Lymph % (Auto) 11.7 L, [place] % (Auto) 8.7, Eos % (Auto) 1.4, Baso % (Auto) 1.0, Absolute Neuts (auto) 7.9 H, Absolute Lymphs (auto) 1.20, Nucleated RBC % 0, PT 13.4, INR 1.0, APTT 27.9, Sodium 136, Potassium 3.3 L, Chloride 102, Carbon Dioxide 25.0, Anion Gap 10, BUN 12, Creatinine 1.04, Estim Creat Clear Calc 114.04, Est GFR (MDRD) Af Amer 96, Est GFR (MDRD) Non-Af 80, BUN/Creatinine Ratio 11.5, Glucose 144 H, Calcium 9.2, Total Bilirubin 8.70 H, Direct Bilirubin 6.89 H, AST 102 H, ALT 366 H, Alkaline Phosphatase 234 H, Total Creatine Kinase 48, Troponin I High Sens 14, Total Protein 7.3, Albumin 3.5, Globulin 3.8, Lipase 118 H 09/28/24 22:50: Urine Color Yellow, Urine Clarity Sl. Cloudy, Urine pH 6.5, Ur Specific [place] 1.010, Urine Protein Negative, Urine Glucose (UA) Normal, Urine Ketones 50 H, Urine Occult Blood 10 H, Urine Nitrite Negative, Urine Bilirubin 1 H, Urine Urobilinogen 1 H, Ur Leukocyte Esterase Negative, Urine RBC 0-5 SEEN, Urine WBC 0 SEEN, Ur Squamous Epith Cells 0-5 SEEN, Amorphous Sediment 1+ URATE, Urine Bacteria 0 SEEN, Urine Mucus 0 SEEN 09/28/24 23:40: Procalcitonin 0.14 H 09/29/24 06:44: WBC 10.2, RBC 5.08, Hgb 15.9, Hct 46.7, MCV 91.9, MCH 31.3, MCHC 34.0, RDW Std Deviation 41.9, RDW Coeff of [place]omy 12.4, Plt Count 250, MPV 10.0, Immature Gran % (Auto) 0.400, Neut % (Auto) 69.0, Lymph % (Auto) 15.0 L, [place] % (Auto) 11.9 H, Eos % (Auto) 2.8, Baso % (Auto) 0.9, Absolute Neuts (auto) 7.0, Absolute Lymphs (auto) 1.52, Nucleated RBC % 0, Sodium 140, Potassium 3.4 L, Chloride 108 H, Carbon Dioxide 24.0, Anion Gap 8, BUN 9, Creatinine 0.82, Estim Creat Clear Calc 143.61, Est GFR (MDRD) Af Amer 127, Est GFR (MDRD) Non-Af 105, BUN/Creatinine Ratio 11.0, Glucose 90, Hemoglobin A1c 4.8, Calcium 8.6, Total Bilirubin 7.70 H, Direct Bilirubin 5.81 H, AST 100 H, ALT 308 H, Alkaline Phosphatase 196 H, Total Protein 6.2 L, Albumin 3.1 L, Globulin 3.1 Radiography Diagnostic Testing: Radiology Impression Chest/Abdomen/Pelvis CT 09/28/24 22:14 IMPRESSION: 1. Intrahepatic duct dilation and mild common bile duct dilation, new as compared to 05/27/2024. Consider follow-up with MRCP. 2. Contracted gallbladder with gallstones. 3. 2 adjacent 6 mm pulmonary nodules in the right middle lobe. Per Fleischner criteria, recommend follow-up CT of the chest in 6-12 months. Electronically Signed: Jose Funes DO at 23:16 EST , Gallbladder Ultrasound 09/28/24 23:35 IMPRESSION: 1. Contracted gallbladder with multiple gallstones, gallbladder wall thickening and a positive sonographic Motta''s sign consistent with acute cholecystitis. 2. Intrahepatic duct dilation and common bile duct dilation. Consider follow-up with MRCP. Electronically Signed: Jose Funes DO at 7:42 EST , Rhythm Strip Rhythm Strip: Sinus Tach Rate: 124 Ectopy: None Physical Exam Narrative Seen and examined. Patient is stated that he had on and off mild abdominal discomfort for 1 year but he did not wake Norit or did not be much attention. This time for last 10 days he was having decreased appetite, nausea and had a loose bowel movement which progressed to jaundice, RUQ abdominal pain and upper back pain with radiation to right shoulder along with dyspeptic symptoms. Patient urine is also dark because of bilirubin and stool pale color Physical exam General: Alert, Oriented x3, Cooperative HEENT: Deep icterus/jaundice. Atraumatic, PERRLA, EOMI, Normocephalic Oral: No Gingival or Mucosal Lesions/ Ulcerations Neck: Supple, No JVD, Negative Carotid Bruits Chest wall/Lungs: Air entry diminished in bilateral lung bases. No crepitation/rhonchi Cardiovascular: Regular rate, Regular Rhythm, Normal S1, Normal S2, No M/G/R Abdomen: Bowel Sounds Present, Soft, mild tenderness in RUQ. Nondistended : No dysuria. No renal angle tenderness. No suprapubic tenderness. Extremities: No edema, Capillary Refill Less than 3 Seconds Skin: Skin is yellow/jaundiced Musculoskeletal: No Tenderness to Palpation of Joints or Extremities Neurological: Cranial nerves II-XII grossly intact, DTR 2+/4. No acute focal neurological deficit. Psych/Mental Status: Normal Affect, Appropriate. Assessment & Plan Assessment/Plan (1) Choledocholithiasis: (2) Obstructive jaundice: PLAN: Plan The patient is a 54 y/o M is admitted with 1 week ago symptoms not feeling good, and developed upper back pain between shoulder blades, took amoxicillin and then got better. In the ED for evaluation his urine was dark-colored and thought it was bloody. He also has loss of appetite did not eat and drink. Mild diffuse abdominal discomfort. Denies history of IV drug use. #1. Acute choledocholithiasis with suspicion of acute cholangitis: Patient is being admitted to Med[facility] floor. Did not had fever. Patient on IV fluid, antibiotics IV Cipro and Flagyl, and other supportive medications. N.p.o. for ERCP. GI consulted. General surgery consulted. No leukocytosis with neutrophil 76.8%. INR normal. TB 8.7, DVT 6.9. ALT 366, AST 102, alk phos 438. Lipase and 18. #2. Incidental pulmonary nodules: CT chest/abdomen/pelvis with 2 adjacent 6 mm pulmonary nodules in the right middle lobe, will need follow-up CT imaging outpatient. #3. Hypokalemia, potentially false given slightly hemolyzed: Admission potassium 3.3 however mildly hemolyzed, will hold off on supplementation and repeat level in the a.m. with supplementation if noted to be low at that time. #4. Hyperglycemia, possibly stress response: Admission glucose elevated 144, suspect stress response given presentation, A1c 4.8. Diabetes mellitus ruled out #5. Hypertension: Blood pressure was elevated. Continue home regimen including lisinopril, amlodipine. Patient had feeling of dizziness with hydralazine therefore discontinued. Changed to labetalol IV as needed for extreme more than 180 mmHg #6. Tobacco Abuse: Encouraged cessation #7. Former alcohol abuse: Sober nearly 18 years, encourage continued sobriety. #8. Obesity: Weight loss and lifestyle changes encouraged. #9. Allergic rhinitis: Per current list does not appear to be on regimen, notes intermittent issues, encourage continued outpatient follow-up as previously arranged. #10. DVT prophylaxis: SCDs, heparin 5000 units heparin SQ Q12 hourly Charges/Coding Visit Charges Inpatient E&M: 86512 Subs Hosp L2
--- NOTE | 2024-09-29 10:45 | CASEMGMT ---
VEE CHOPRA Assessment: Face to Face with pt for initial transition planning/care coordination assessment. RN KEYSHA introduced self and role at [facility], pt voices understanding and consents to assessment. Pt is A&O x4 and answers all questions appropriately at this time. Pt lying in bed in no distress. Care providers, pharmacy, and demographics verified/updated. Admitting Dx: choledocholithiasis Strata Score: 1 PCP:Greer Patel Facundo Specialists:UTE Anderson Preferred [facility]acy: [facility] Insurance: [employer] Prescription Benefit: yes LNOK: Zara Covert, cousin Living Arrangements: Pt lives with 92 year old aunt in a two story home with 2 steps to enter. Pt reports he is I in ADLs and denies concerns at home. Pt does IADLs for aunt also. Transportation: Pt drives self and denies concerns with transportation. DME:Denies HHC/SNF: Denies hx of Pt states no concerns with going home at time of dc. Pt states no further concerns/needs. CM to follow. Advised pt to ask CM if any further question/concerns/needs arise, voices understanding. Pt Goal: Home Plan: Home [place] BAXTER CM
[2024-09-29] MEDS: Ciprofloxacin 400 MG/200 ML BAG 200 MG IV ×2 (11:26→21:24)
--- NOTE | 2024-09-29 12:12 | PCM.PRE.AN2 ---
ASA Classification* ASA Classification ASA Classification: 2 Assessment & Plan Anesthesia* Anesthesia Assessment Anesthesia Assessment: Discussed sedation and/or anesthesia options, risks, benefits, and alternatives with patient/parents/legal guardian/POA. Questions invited. The patient/parents/legal guardian/POA seems to understand and agrees to proceed with anesthesia plan. Reviewed the physical assessment, medical history, allergy history and patient home medications list prior to surgery/procedure/anesthetic and documented any changes. Performed airway and anesthesia risk assessments. Anesthesia Type Anesthesia Type: General Anesthesia Focused Assessment* Temperature: 97.7 F Pulse Rate: 100 Blood Pressure: 154/91 Respiratory Rate: 18 Pulse Ox: 94 Airway Assessment Mouth opens: >3 cm Mallampati Score: II Focused Labs Anesthesia Preop lab: CBC WBC 10.2 K/mm3 (4.4-11.0) 09/29/24 06:44 RBC 5.08 M/mm3 (4.6-6.2) 09/29/24 06:44 Hgb 15.9 g/dL (13.0-16.5) 09/29/24 06:44 Hct 46.7 % (40-54) 09/29/24 06:44 Plt Count 250 K/mm3 (150-450) 09/29/24 06:44 CHEMISTRY Potassium 3.4 mmol/L (3.5-5.1) L 09/29/24 06:44 Sodium 140 mmol/L (136-145) 09/29/24 06:44 BUN 9 mg/dL (7-18) 09/29/24 06:44 Creatinine 0.82 mg/dL (0.70-1.30) 09/29/24 06:44 Glucose 90 mg/dL (74-106) 09/29/24 06:44 COAG PT 13.4 SECONDS (11.7-14.9) 09/28/24 21:40 Pre-Assessment Diagnosis/Proposed Procedure Planned Operative Procedure(s): ERCP Anesthesia History 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 When Was Last Pacemaker Check QUESTION #4 FULL TEXT: You/Your Family Experience fever (hyperthermia) with Anesthesia Last Oral Intake Last Oral intake: Last Oral Intake NPO since 00:00 09/29/24 11:30 Meds taken in AM with sips of Yes 09/29/24 11:30 water? 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 Female HX of Motion Sickness HX of N/V After Surgery Non-Smoker Duration of Surgery greater than 60 minutes Number of Risk Factors PONV Score Height & Weight Height & Weight: Anesthesia: Height & Weight Height 6 ft 2 in 09/29/24 11:30 Weight: 117.565 kg 09/29/24 11:30 Body Mass Index (BMI) 33.3 09/29/24 11:30 Respiratory Assessment Respiratory Assessment - sawing and assembly supervisor: Respiratory Tract Infection Hx - sawing and assembly supervisor Hx Respiratory Tract Infection STOP Sleep Apnea STOP Sleep Apnea - sawing and assembly supervisor: STOP Sleep Apnea - sawing and assembly supervisor Hx Hypertension Yes 09/29/24 00:37 Hx Sleep Apnea No 09/29/24 00:37 CPAP BIPAP Do you snore loudly (louder No 09/29/24 00:37 than talking or can be heard Do you often feel tired/ No 09/29/24 00:37 fatigued/ sleepy during daytime? Has anyone observed you stop No 09/29/24 00:37 breathing during sleep? STOP Results Negative 09/29/24 00:37 QUESTION #5 FULL TEXT : Do you snore loudly (louder than talking or can be heard through closed doors)? 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 Specify any problems Hx of Preganancy in last 3 N/A 09/29/24 00:37 Months Nurse Filling Out Transfusion LEELA 09/29/24 00:37 & Questions: Date: 09/29/24 09/29/24 00:37 Time: 00:46 09/29/24 00:37 Patient unable to answer at this time (ie. 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 and assembly supervisor: /Reproductive Hx- sawing and assembly supervisor Hx Now Gestational Age (in weeks): EDC: Hx Hx Para Hx Section SAB Active Medications Active Medications: Current Medications Generic Name Dose Route Start Last Admin Trade Name Freq PRN Reason Stop Dose Admin Acetaminophen 650 mg 09/29/24 00:37 09/29/24 02:31 Acetaminophen 325 Mg Tablet PO 650 mg Q4H PRN PRN Administration Fever, pain 1-1010 Al Hydroxide/Mg Hydroxide 30 ml 09/29/24 00:37 Mag Hydrox/Al Hydrox/Simeth 30 Ml Udc PO Q6H PRN PRN Gastric Burning Albuterol Sulfate 2.5 mg 09/29/24 00:37 Albuterol 2.5 Mg/3 Ml Vial.Neb. INHALATION Q2H PRN PRN Dyspnea, wheezing Amlodipine Besylate 5 mg 09/29/24 10:00 09/29/24 07:58 Amlodipine 5 Mg Tablet PO 5 mg DAILY BRIANA Administration Protocol Guaifenesin 20 ml 09/29/24 00:37 Guaifenesin 10 Ml Udc (200mg/10ml) PO Q4H PRN PRN COUGH Hydromorphone HCl 0.5 mg 09/29/24 00:37 09/29/24 01:25 Hydromorphone 0.5 Mg/0.5 Ml Syringe IV 0.5 mg Q3H PRN PRN Administration Pain Score 6-10 Pantoprazole Sodium 40 mg/ 110 mls @ 330 mls/hr 09/29/24 00:37 09/29/24 10:10 Sodium Chloride IV Infused Q12 BRIANA Infusion Sodium Chloride 500 mls @ 15 mls/hr 09/29/24 00:38 IV .[id number] PRN Saline Flush Sodium Chloride 500 mls @ 15 mls/hr 09/29/24 00:38 IV .[id number] PRN Additional IVPB Infusion Ciprofloxacin 400 mg in 200 mls @ 200 mls/hr 09/29/24 08:10 09/29/24 11:26 Cipro IV 200 mls/hr Q12 BRIANA Administration Metronidazole 500 mg in 100 mls @ 100 mls/hr 09/29/24 08:10 09/29/24 11:27 Flagyl IV Not Given Q8 BRIANA Labetalol HCl 10 mg 09/29/24 10:36 Labetalol (Prefilled) 20 Mg/4 Ml Vial IV Q4H PRN PRN SBP GREATER THAN 180 Melatonin 3 mg 09/29/24 00:37 Melatonin 3 Mg Tablet PO QHS PRN PRN INSOMNIA Ondansetron HCl 4 mg 09/29/24 00:37 Ondansetron 4 Mg/2 Ml Vial IV Q8H PRN PRN NAUSEA/VOMITING Oxycodone HCl 5 mg 09/29/24 00:37 09/29/24 02:31 Oxycodone 5 Mg Tablet PO 5 mg Q4H PRN PRN Administration Pain Score 4-10 Prochlorperazine Edisylate 5 mg 09/29/24 00:37 Prochlorperazine 10 Mg/2 Ml Vial IV Q4H PRN PRN Breakthrough nausea/vomiting Senna/Docusate Sodium 2 tablet 09/29/24 00:37 Senna/Docusate Sodium 1 Tablet PO BID PRN PRN Constipation Sodium Chloride 10 - 40 ml 09/29/24 00:38 09/29/24 08:06 0.9% Saline Lock 10 Ml Syringe IV 10 ml UD PRN Administration SALINE FLUSH [facility] Medical History History of alcohol abuse Tobacco use Allergic rhinitis Nasal polyps Hypertension Home Medications ?Medication ?Instructions ?Recorded ?Last Taken ?Type amlodipine 5 mg tablet 5 mg PO DAILY #30 tabs 05/27/24 Unknown Rx Allergy/AdvReac Type Severity Reaction Status Date / Time lisinopril Allergy Severe FELT LIKE Verified 09/29/24 00:55 THROAT WAS SWELLING SHUT Sulfa (Sulfonamide Allergy Intermediate Anaphylaxis Verified 09/28/24 21:21 Antibiotics) morphine Allergy Mild Vomiting Verified 09/28/24 21:21 Penicillins AdvReac Intermediate Shortness Verified 09/28/24 21:21 of breath amoxicillin AdvReac Mild TWITCHING Verified 09/29/24 00:52 Family History Mother Breast cancer age 66 with metastatic breast CA. Father CAD (coronary artery disease) First [place] age 35, age 52 secondary to cardiac event. Myocardial infarction First [place] age 35, age 52 secondary to cardiac event. Hypertension Heart disease Surgical History History of oral surgery Social History household members: other details: His 93 y/o aunt lives with him and he cares for her. Smoking Status: Current every day smoker tobacco type: cigarettes Smoking packs per day: 0.75 Smoking cigarettes per day: 15.0 alcohol intake: former details: Sober x ~ 18 years (09/2024 evaluation) substance use type: marijuana Review of Systems (Anesthesia) ROS Narrative System reviewed and no additional complaints, except as documented.
--- NOTE | 2024-09-29 13:24 | EX.PCM.CON.G ---
HPI Consult Data Date of Consult: 09/28/24 HPI Narrative Reason for Consultation: Choledocholithiasis HPI Narrative: KAREN CESAR, is a 54 y/o M with EtOH abuse (sober nearly 18 years) who presents to the [facility] ED on 09/28/24 with 1 week history of progressively worsening symptoms with initially diarrhea ; earlier in the week although this seems to have abated with generalized and fatigue with eventual onset of back discomfort between his shoulder blades with onset of dark appearing urine. He also complains of a poor appetite and nausea with mild diffuse abdominal discomfort but no emesis with no fevers with very marte bowel movement initially eventually white appearing and then onset more loose stools with eventual jaundice skin as well as dyspepsia and epigastric discomfort with chest tightness which will radiate into his spine as well as onset of right-sided headache prompting ED evaluation to be cautious. He denies any IV drug abuse. He denies any history of hepatitis. He denies any alcohol intake for nearly 18 years and had been an alcoholic previous to this. In the ED initially he reported his abdominal/back discomfort is 8 out of 10 in severity, currently improved, 2-3 out of 10 in severity. Denies any current nausea. Workup in the ED included T98.1, heart rate 151, BP 170/120, respiratory rate 18, 97%, CBC with WC 10.2, hemoglobin 17.6, platelet 275 with left shift, unremarkable coags, CMP with potassium 3.3, glucose 144, T. bili 8.70, D bili 6.89, AST/LT 102/366, alk phos 234, total creatinine kinase 48, troponin 14, lipase 118, urinalysis with no obvious evidence of UTI, chest/abdomen/pelvis CT with contrast with intra [place] duct dilatation mild, bile duct dilatation [facility] Medical History History of alcohol abuse Tobacco use Allergic rhinitis Nasal polyps Hypertension Home Medications ?Medication ?Instructions ?Recorded ?Last Taken ?Type amlodipine 5 mg tablet 5 mg PO DAILY #30 tabs 05/27/24 Unknown Rx Allergy/AdvReac Type Severity Reaction Status Date / Time lisinopril Allergy Severe FELT LIKE Verified 09/29/24 00:55 THROAT WAS SWELLING SHUT Sulfa (Sulfonamide Allergy Intermediate Anaphylaxis Verified 09/28/24 21:21 Antibiotics) morphine Allergy Mild Vomiting Verified 09/28/24 21:21 Penicillins AdvReac Intermediate Shortness Verified 09/28/24 21:21 of breath amoxicillin AdvReac Mild TWITCHING Verified 09/29/24 00:52 Family History Mother Breast cancer age 66 with metastatic breast CA. Father CAD (coronary artery disease) First [place] age 35, age 52 secondary to cardiac event. Myocardial infarction First [place] age 35, age 52 secondary to cardiac event. Hypertension Heart disease Surgical History History of oral surgery Social History household members: other details: His 93 y/o aunt lives with him and he cares for her. Smoking Status: Current every day smoker tobacco type: cigarettes Smoking packs per day: 0.75 Smoking cigarettes per day: 15.0 alcohol intake: former details: Sober x ~ 18 years (09/2024 evaluation) substance use type: marijuana ROS ROS Narrative Admission Review of Systems: CONSTITUTIONAL: No weight loss, fever, chills, +weakness or fatigue. HEENT: + Scleral icterus, headache. Eyes: No visual loss, blurred vision, double vision. Ears, Nose, Throat: No hearing loss, sneezing, congestion, runny nose or sore throat. SKIN: No rash or itching, lesions, wounds except significantly + jaundiced appearance. CARDIOVASCULAR: + Chest pain. No palpitations, edema, orthopnea, syncopal events. RESPIRATORY: No shortness of breath, cough or sputum, wheezing, hemoptysis. GASTROINTESTINAL: + Anorexia, nausea, abdominal pain, diarrhea, altered stool appearance initially marte now white. No melena or BRBPR. GENITOURINARY: + Extremely dark appearing urine. No dysuria, frequency, urgency or retention. NEUROLOGICAL: + Headache. Dizziness, syncope, paralysis, ataxia, numbness or tingling in the extremities, focal weakness, change in bowel or bladder control, seizure. MUSCULOSKELETAL: + muscle, back pain, joint pain or stiffness. HEMATOLOGIC: No anemia, bleeding or bruising. LYMPHATICS: No enlarged nodes. No history of splenectomy. PSYCHIATRIC: No history of depression or anxiety. ENDOCRINOLOGIC: No reports of sweating, cold or heat intolerance. No polyuria or polydipsia. ALLERGIES: No history of asthma, hives, eczema or rhinitis. Physical Exam Const alert, oriented x3 and no apparent distress HEENT normocephalic and head/scalp atraumatic Eyes PERRL and EOMs intact bilaterally Neck full ROM Lymph Lymphatic: no lymphadenopathy noted Chest inspection of chest normal Resp normal respiratory effort and clear to auscultation bilaterally Cardio regular rate and regular rhythm GI GI Narrative: Abdomen- soft, non-distended, slight tenderness in the RUQ with palpation. Positive Motta's sign. Positive bowel sounds. no CVA tenderness Back/Spine no CVA tenderness Extremity normal to inspection Skin no rashes or lesions noted Neuro no focal motor deficits and no sensory deficits noted Psych mental status grossly normal, thought process normal, cooperative, affect normal and speech normal Lab / Micro Data 09/29/24 06:44 09/29/24 06:44 Labs: Laboratory Results - last 24 hr 09/28/24 21:40: WBC 10.2, RBC 5.49, Hgb 17.6 H, Hct 49.7, MCV 90.5, MCH 32.1 H, MCHC 35.4, RDW Std Deviation 40.7, RDW Coeff of Nahomy 12.2, Plt Count 275, MPV 9.7, Immature Gran % (Auto) 0.400, Neut % (Auto) 76.8 H, Lymph % (Auto) 11.7 L, [place] % (Auto) 8.7, Eos % (Auto) 1.4, Baso % (Auto) 1.0, Absolute Neuts (auto) 7.9 H, Absolute Lymphs (auto) 1.20, Nucleated RBC % 0, PT 13.4, INR 1.0, APTT 27.9, Sodium 136, Potassium 3.3 L, Chloride 102, Carbon Dioxide 25.0, Anion Gap 10, BUN 12, Creatinine 1.04, Estim Creat Clear Calc 114.04, Est GFR (MDRD) Af Amer 96, Est GFR (MDRD) Non-Af 80, BUN/Creatinine Ratio 11.5, Glucose 144 H, Calcium 9.2, Total Bilirubin 8.70 H, Direct Bilirubin 6.89 H, AST 102 H, ALT 366 H, Alkaline Phosphatase 234 H, Total Creatine Kinase 48, Troponin I High Sens 14, Total Protein 7.3, Albumin 3.5, Globulin 3.8, Lipase 118 H 09/28/24 22:50: Urine Color Yellow, Urine Clarity Sl. Cloudy, Urine pH 6.5, Ur Specific [place] 1.010, Urine Protein Negative, Urine Glucose (UA) Normal, Urine Ketones 50 H, Urine Occult Blood 10 H, Urine Nitrite Negative, Urine Bilirubin 1 H, Urine Urobilinogen 1 H, Ur Leukocyte Esterase Negative, Urine RBC 0-5 SEEN, Urine WBC 0 SEEN, Ur Squamous Epith Cells 0-5 SEEN, Amorphous Sediment 1+ URATE, Urine Bacteria 0 SEEN, Urine Mucus 0 SEEN 09/28/24 23:40: Procalcitonin 0.14 H 09/29/24 06:44: WBC 10.2, RBC 5.08, Hgb 15.9, Hct 46.7, MCV 91.9, MCH 31.3, MCHC 34.0, RDW Std Deviation 41.9, RDW Coeff of Nahomy 12.4, Plt Count 250, MPV 10.0, Immature Gran % (Auto) 0.400, Neut % (Auto) 69.0, Lymph % (Auto) 15.0 L, [place] % (Auto) 11.9 H, Eos % (Auto) 2.8, Baso % (Auto) 0.9, Absolute Neuts (auto) 7.0, Absolute Lymphs (auto) 1.52, Nucleated RBC % 0, Sodium 140, Potassium 3.4 L, Chloride 108 H, Carbon Dioxide 24.0, Anion Gap 8, BUN 9, Creatinine 0.82, Estim Creat Clear Calc 143.61, Est GFR (MDRD) Af Amer 127, Est GFR (MDRD) Non-Af 105, BUN/Creatinine Ratio 11.0, Glucose 90, Hemoglobin A1c 4.8, Calcium 8.6, Total Bilirubin 7.70 H, Direct Bilirubin 5.81 H, AST 100 H, ALT 308 H, Alkaline Phosphatase 196 H, Total Protein 6.2 L, Albumin 3.1 L, Globulin 3.1 Rhythm Strip Rhythm Strip: Sinus Tach Rate: 124 Ectopy: None Imaging Radiology Impression Chest/Abdomen/Pelvis CT 09/28/24 22:14 IMPRESSION: 1. Intrahepatic duct dilation and mild common bile duct dilation, new as compared to 05/27/2024. Consider follow-up with MRCP. 2. Contracted gallbladder with gallstones. 3. 2 adjacent 6 mm pulmonary nodules in the right middle lobe. Per Fleischner criteria, recommend follow-up CT of the chest in 6-12 months. Electronically Signed: Jose FunesDO at 23:16 EST , Gallbladder Ultrasound 09/28/24 23:35 IMPRESSION: 1. Contracted gallbladder with multiple gallstones, gallbladder wall thickening and a positive sonographic Motta''s sign consistent with acute cholecystitis. 2. Intrahepatic duct dilation and common bile duct dilation. Consider follow-up with MRCP. Electronically Signed: Jose FunesDO at 7:42 EST , Assessment & Plan Assessment/Plan (1) Choledocholithiasis: (2) Obstructive jaundice: PLAN: Plan 54 y/o M is admitted with 1 week ago symptoms not feeling good, and developed upper back pain between shoulder blades, took amoxicillin and then got better. In the ED for evaluation his urine was dark-colored Abdominal pain, nausea without emesis, jaundiced appearance with significant hyperbilirubinemia, transaminitis with intrahepatic duct dilatation and mild common bile duct dilatation with a contracted gallbladder with gallstones noted, suspected result of obstructive jaundice with choledocholithiasis. Recommend ERCP to evaluate patient's GI tract due to his high pretest probability for choledocholithiasis. He may also need liver biopsy and possible autoimmune hepatitis workup in the future. He was explained alternatives, risk and benefits include not withstanding bleeding, infection, sepsis, perforation, need for more charge and . He will have an ASA of 3. Charges/Coding Visit Charges Inpatient E&M: 53408 Init Hosp L3
--- NOTE | 2024-09-29 13:45 | RAD_ITS ---
EXAM: FL FLUOROSCOPY < 1 HOUR CLINICAL INDICATION: ERCP TECHNIQUE: Fluoroscopic images performed in multiple projections. Fluoroscopic guidance was provided by a physician. No radiologist was present. Fluoroscopy time: 130 seconds. Number of fluoroscopic images: 6. Radiation dose: 45.12 mGy. COMPARISON: Gallbladder ultrasound of 09/29/2024. FINDINGS: The common bile duct was cannulated and difficult to accurately evaluate on this exam. The last image demonstrates common bile duct stent. Images were obtained for documentation. RAD/ERCP Biliary/Pancreas IMPRESSION: ERCP as described above. Electronically Signed: Dario Khan MD at 15:46 EST ,
--- NOTE | 2024-09-29 15:28 | PCM.POST.ANE ---
Anesthesia: Postop Eval I Current Vital Signs Temperature: 98.7 F Pulse Rate: 119 Blood Pressure: 151/89 Respiratory Rate: 20 Pulse Ox: 97 Assessment Airway patent: Yes Spontaneous unlabored respirations: Yes nausea: No Vomiting: No Anesthesia Complication: No Fluid Hydration Crystalloid volume administer (ml): 1,000 Total IV fluid infused: 1,000 Progress Note Anesthesia document: Postop Eval 1 completed: Yes
--- NOTE | 2024-09-29 16:03 | OP.CCLET_ITS ---
09/29/2024 Greer Patel [facility], Internal Medicine Physician-c Re : ERCP procedure for Richy Patel This procedure was performed on Sunday, September 29, 2024. My impressions and recommendations are as follows: Impressions : - A single localized biliary stricture was found in the lower third of the main bile duct. 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 - The entire biliary tree was dilated, uncertain etiology. - A biliary sphincterotomy was performed. - The biliary tree was swept and nothing was found. - One temporary stent was placed into the common bile duct. Recommendations : Liver biopsy, check ALISHA, IgG4, ANCA, anti-smooth muscle antibody, antimitochondrial antibody, ESR, CRP, SHANNAN with protein electrophoresis, viral hepatitis studies My findings are described in the full procedure note, which is enclosed. If I can be of further assistance, please feel free to contact me at . Sincerely, Mitch Rendon, 09/29/2024 4:02:54 PM This report has been signed electronically.
--- NOTE | 2024-09-29 16:03 | OP.ERCP_ITS ---
Patient Name: Richy Jose Procedure Date: 09/29/2024 12:54 PM Date of : 1970 Age: 54 Procedure: ERCP Indications: Abnormal abdominal CT, Biliary dilation on Computed Tomogram Scan, Biliary dilation on Ultrasound, Bile duct stone on Ultrasound, Jaundice, Elevated liver enzymes, Elevated aspartate transaminase (AST), Elevated alanine transaminase (ALT), Elevated bilirubin, Elevated alkaline phosphatase Providers: Mitch Rendon DO Medicines: Monitored Anesthesia Care Patient Profile: This is a 54 year old male. Refer to note in patient chart for documentation of history and physical. Patient has symptoms of acute right upper quadrant abdominal pain and acute jaundice. Complications: No immediate complications. Procedure: Pre-Anesthesia Assessment: - Prior to the procedure, a History and Physical was performed, and patient medications and allergies were reviewed. The patient is competent. The risks and benefits of the procedure and the sedation options and risks were discussed with the patient. All questions were answered and informed consent was obtained. Patient identification and proposed procedure were verified by the physician in the pre-procedure area. Mental Status Examination: alert and oriented. Airway Examination: normal oropharyngeal airway and neck mobility. Respiratory Examination: clear to auscultation. CV Examination: normal. Prophylactic Antibiotics: The patient does not require prophylactic antibiotics. Prior Anticoagulants: The patient has taken no anticoagulant or antiplatelet agents except for NSAID medication. ASA Grade Assessment: II - A patient with mild systemic disease. After reviewing the risks and benefits, the patient was deemed in satisfactory condition to undergo the procedure. The anesthesia plan was to use general anesthesia. Immediately prior to administration of medications, the patient was re-assessed for adequacy to receive sedatives. The heart rate, respiratory rate, oxygen saturations, blood pressure, adequacy of pulmonary ventilation, and response to care were monitored throughout the procedure. The physical status of the patient was re-assessed after the procedure. After obtaining informed consent, the scope was passed under direct vision. Throughout the procedure, the patient's blood pressure, pulse, and oxygen saturations were monitored continuously. The Duodenoscope was introduced through the mouth, and advanced to the duodenum and used to inject contrast into the bile duct. The ERCP was accomplished without difficulty. The patient tolerated the procedure well. Scope In: 2:03:07 PM Scope Out: 3:12:40 PM Total Procedure Duration Time 1 hour 9 minutes 33 seconds Findings: The physician advisor film was normal. The esophagus was successfully intubated under direct vision. The scope was advanced to a normal major papilla in the descending duodenum without detailed examination of the pharynx, larynx and associated structures, and upper GI tract. The upper GI tract was grossly normal. The bile duct was deeply cannulated with the short-nosed traction sphincterotome. Contrast was injected. I personally interpreted the bile duct images. Ductal flow of contrast was adequate. Image quality was adequate. Contrast extended to the entire biliary tree. Opacification of the main bile duct and entire biliary tree was successful. The maximum diameter of the ducts was 10 mm. The lower third of the main bile duct contained a single localized stenosis 6 mm in length. The entire biliary tree was diffusely dilated, uncertain etiology. The largest diameter was 8 mm. A long 0.025 inch Jagwire was passed into the biliary tree. A 5 mm biliary sphincterotomy was made with a traction (standard) sphincterotome using ERBE electrocautery. There was no post-sphincterotomy bleeding. The biliary tree was swept with a 12 mm balloon starting at the bifurcation, left intrahepatic duct(s), left main hepatic duct and right main hepatic duct. Nothing was found. One 10 Fr by 5 cm temporary stent was placed 5 cm into the common bile duct. Clear fluid flowed through the stent. The stent was in good position. Impression: - A single localized biliary stricture was found in the lower third of the main bile duct. 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 - The entire biliary tree was dilated, uncertain etiology. - A biliary sphincterotomy was performed. - The biliary tree was swept and nothing was found. - One temporary stent was placed into the common bile duct. Recommendation: Liver biopsy, check ALISHA, IgG4, ANCA, anti-smooth muscle antibody, antimitochondrial antibody, ESR, CRP, SHANNAN with protein electrophoresis, viral hepatitis studies Procedure Code(s): --- Professional --- 02891, Endoscopic retrograde cholangiopancreatography (ERCP); with placement of endoscopic stent into biliary or pancreatic duct, including pre- and post-dilation and guide wire passage, when performed, including sphincterotomy, when performed, each stent [id number], 26, Endoscopic catheterization of the biliary ductal system, radiological supervision and interpretation CPT copyright 2021 [employer]. All rights reserved. The codes documented in this report are preliminary and upon cpc coder review may be revised to meet current compliance requirements. Mitch Rendon DO 09/29/2024 4:02:54 PM This report has been signed electronically. Number of Addenda: 0 Note Initiated On: 09/29/2024 12:54 PM
[2024-09-29] MEDS: guaiFENesin 10 ML UDC (200MG/10ML) 20 ML PO (16:50)
--- NOTE | 2024-09-29 18:41 | NURSING ---
lab informed text to about new orders for labs therefore labs are per they were ordered.
[2024-09-29 18:45] LABS: Ferritin 1009 ng/mL (26-388)
[2024-09-29 19:21] LABS: Erythrocyte Sedimentation Rate 14 mm/hr (0-20)
[2024-09-29] MEDS: 0.9% Normal Saline (500mL Bag) 500 ML 15 ML IV ×2 (21:22→21:31)
[2024-09-29] MEDS: MELATONIN 3 MG TABLET PO (21:34)
[2024-09-30] VITALS (22 sets, daily range): BP systolic 118–154; BP diastolic 58–98; PULSE 66–98; RESP 12–18; TEMP 36.7–36.9; O2SAT 90–99; BMI 33.4
--- NOTE | 2024-09-30 | LIVB_PTH ---
PATIENT: KAREN CESAR LOC: MS3 U#:[id number] AGE/SX: 54/M ROOM: IN321 RE09/28/[address]: Dr. Ajay Francisco MD : 1970 BED: 1 DIS: 10/01/2024 SPEC #: [id number] RECD: 09/30/24 09:31 STATUS: BRYANT REQ #: [id number] MARCELINO: 09/30/24 00:[address]: Ajay Francisco DEPT: SURGICAL PATHOLOGY RECD BY: Shari Mckay ENTERED: 09/30/24 10:06 SP TYPE: LIVER BX OTHR DR: MD Dr. Yadi Balderas MD Jessica Franklin, [facility], [employer] Tissues: Liver, NOS Procedures: PAS with Diastase (control) Trichrome (control) Special Stain Group I PAS Stain (control) Surgery Specimen Level V Retic (control) Iron Stain (control) HEADER OPERATION: CT guided liver biopsy PRE-OP DIAGNOSIS: Jaundice, hepatitis TISSUE SUBMITTED: 18 gauge x 4 cores MICROSCOPIC DIAGNOSIS Liver, CT guided core biopsy: Chronic hepatitis, Grade 2 and stage 2. Iron - 4+. See microscopic description and comment. 10/01/2024 COMMENT Correlation with clinical, radiologic, laboratory studies and appropriate follow up are necessary. Case has been reviewed in consultation with Dr. Chua who concurs with the above diagnosis. IDC:FA MICROSCOPIC DESCRIPTION Slides are reviewed. This specimen shows liver parenchymal tissue with preserved lobular architecture. Hepatocytes mild reactive changes. Dilatation of sinusoids and mild lobular inflammation are noted. Portal area shows mild to moderate chronic inflammatory cell infiltrates predominantly consist of lymphocytes and a few eosinophils. Minimal interface inflammation is also noted. Iron stain shows 4+ iron in the hepatocytes. Trichrome stain shows increased portal and periportal fibrosis. Significant bridging fibrosis is not seen. Reticulin stain shows preserved lobular architecture. PAS stain with and without diastase do not show any abnormal accumulation of protein. All stains are performed with appropriate matched controls. GROSS DESCRIPTION Received in fixative is one container labeled with the patient's name and designated Liver biopsy. The specimen consists of multiple irregular fragments of marte soft tissue that in aggregate measure 2.0 x 0.4 x 0.1 cm. The specimen is totally submitted in one cassette. 09/30/2024 TC:3 CPT:54564,54662w7
[2024-09-30 04:08] LABS: GGTP 205 IU/L (0-65)
[2024-09-30] MEDS: metroNIDAZOLE 500 MG/100 ML BAG 100 MG IV ×3 (04:59→21:32)
[2024-09-30] MEDS: 0.9% Saline Lock 10 ML Syringe IV ×5 (04:59→23:25)
[2024-09-30 05:08] LABS: HEPATITIS B SURFACE AG Negative (Negative); Hep C Antibodies Non Reactive (Non Reactive); Hepatitis A IgM Antibody Negative (Negative); Hepatitis B Core AB IgM Negative (Negative)
[2024-09-30 06:57] LABS: Absolute Lymphocyte Count 1.61 X10^3/uL (0.83-4.51); Absolute Neutrophil Count 6.5 X10^3/uL (2.0-7.7); Basophil% 1.1 % (0-1); Eosinophil# 0.32 X10^3/uL; Eosinophils% 3.4 % (0-5); Lymphocyte # 1.61 X10^3/ul (0.83-4.51); Mean Corp Hgb Conc 33.3 g/dL (32-36); Monocyte# 0.92 X10^3/uL; Monocyte% 9.7 % (0-10); NRBC Flagged by Analyzer 0 % (0-5); Neutrophil # 6.51 X10^3/uL (2.7-7.7); Neutrophil % 68.5 % (47-70); Platelet Count 240 K/mm3 (150-450); RBC Distribution Width CV 12.7 % (11.6-14.6); RBC Distribution Width SD 43.8 fl (35.1-43.9); Red Blood Count 4.84 M/mm3 (4.6-6.2); White Blood Count 9.5 K/mm3 (4.4-11.0)
--- NOTE | 2024-09-30 07:25 | POSTOPAN2_ITS ---
Anesthesia Postop Eval I Sum Postop Eval Completion status Anesthesia document: Postop Eval 1 completed: Yes Anesthesia Postop Eval I Summary Anesthesia Postop Eval I Summary: Anesthesia Postop Eval I: Assessment Summary Airway patent Yes 09/29/24 15:28 OFFICE SYSTEM [email or web address].CSIR Spontaneous unlabored Yes 09/29/24 15:28 OFFICE SYSTEM ANALYST.CSIR respirations Mental status nausea No 09/29/24 15:28 OFFICE SYSTEM ANALYST.CSIR Vomiting No 09/29/24 15:28 OFFICE SYSTEM ANALYST.CSIR Anesthesia Postop Eval I: Fluid Summary Crystalloid volume administer 1,000 09/29/24 15:28 OFFICE SYSTEM ANALYST.CSIR (ml) Colloids volume administered ( ml) Blood Product volume administered (ml) Total IV fluid infused 1,000 09/29/24 15:28 OFFICE SYSTEM ANALYST.CSIR Anesthesia Postop Eval I: Summary Notes Anesthesia Complication No 09/29/24 15:28 OFFICE SYSTEM ANALYST.CSIR Anesthesia Complication Comment: Post-operative progress note Anesthesia: Postop Eval II Evaluation Mental status: Awake Pain Level: 0 nausea: No Vomiting: No
--- NOTE | 2024-09-30 07:25 | PCM.POSTANE2 ---
Anesthesia Postop Eval I Sum Postop Eval Completion status Anesthesia document: Postop Eval 1 completed: Yes Anesthesia Postop Eval I Summary Anesthesia Postop Eval I Summary: Anesthesia Postop Eval I: Assessment Summary Airway patent Yes 09/29/24 15:28 CHEMIST [email or web address] Spontaneous unlabored Yes 09/29/24 15:28 CHEMIST STEROIDS.CSIR respirations Mental status nausea No 09/29/24 15:28 CHEMIST STEROIDS.CSIR Vomiting No 09/29/24 15:28 CHEMIST [email or web address].CSIR Anesthesia Postop Eval I: Fluid Summary Crystalloid volume administer 1,000 09/29/24 15:28 CHEMIST STEROIDS.CSIR (ml) Colloids volume administered ( ml) Blood Product volume administered (ml) Total IV fluid infused 1,000 09/29/24 15:28 CHEMIST [email or web address].CSIR Anesthesia Postop Eval I: Summary Notes Anesthesia Complication No 09/29/24 15:28 CHEMIST [email or web address].CSIR Anesthesia Complication Comment: Post-operative progress note Anesthesia: Postop Eval II Evaluation Mental status: Awake Pain Level: 0 nausea: No Vomiting: No
[2024-09-30 07:46] LABS: AST(SGOT) 106 U/L (15-37); Alanine Aminotransfer ALT/SGPT 303 U/L (16-61); Alkaline Phosphatase 191 U/L (45-117); Anion Gap 9 (5-15); BUN 8 mg/dL (7-18); BUN/Creat Ratio 9.1 RATIO (10-20); Bilirubin, Direct 2.44 mg/dL (0.00-0.30); Calcium,Total 8.7 mg/dL (8.5-10.1); Chloride 109 mmol/L (98-107); Creatinine, Serum 0.88 mg/dL (0.70-1.30); EST Glomerular Filtration Rate 97 mL/min (>60); Est Glom Filt Rate - Afr Amer 117 mL/min (>60); Estimated Creatinine Clearance 134.17 ml/min; Globulin 3.1 g/dL (2.2-4.2); Glucose 95 mg/dL (74-106); Potassium 3.4 mmol/L (3.5-5.1); Protein, Total 6.1 g/dL (6.4-8.2); Sodium Level 140 mmol/L (136-145)
--- NOTE | 2024-09-30 08:34 | PN.SURG_ITS ---
Subjective Subjective Patient currently not in his room and getting a liver biopsy. Will plan to come back and talk with patient. Did come back talk to patient after liver biopsy completed. Patient does have some soreness in the right upper quadrant, over the rib. Patient's ERCP did not show choledocholithiasis showed a stricture in the common bile duct no evidence of any stones or sludge question PSC per Dr. Rendon Objective Data Objective Data Vital Signs: Vital Signs Temp Pulse Resp BP Pulse Ox O2 Del Method 98.4 F 86 15 152/86 H 96 Room Air 09/30/24 08:12 09/30/24 08:12 09/30/24 08:12 09/30/24 08:12 09/30/24 08:12 09/30/24 08:12 Oxygen Delivery Method Room Air Weight: 260 lb 9.382 oz Body Mass Index (BMI) 33.4 Intake & Output: Intake and Output for Last 24 Hours 09/28/24 09/29/24 09/30/24 23:59 23:59 23:59 Intake Total 1000 / 1000 2531 / 2568.25 137.25 / 137.25 Balance 1000 / 1000 2531 / 2568.25 137.25 / 137.25 Lab / Micro Data 09/30/24 06:37 09/30/24 06:37 Labs: Laboratory Results - last 24 hr 09/28/24 23:40: Hepatitis A IgM Ab Negative, Hep Bs Antigen Negative, Hep B Core IgM Ab Negative, Hepatitis C Ab (EIA) Non Reactive, Hep C Ab Comment Comment 09/29/24 06:44: ESR 14, Ferritin 1009 H, GGT 205 H, C-React Prot Ext Range 10.00 H 09/30/24 06:37: WBC 9.5, RBC 4.84, Hgb 15.0, Hct 45.0, MCV 93.0, MCH 31.0, MCHC 33.3, RDW Std Deviation 43.8, RDW Coeff of Nahomy 12.7, Plt Count 240, MPV 10.0, Immature Gran % (Auto) 0.300, Neut % (Auto) 68.5, Lymph % (Auto) 17.0 L, [place] % (Auto) 9.7, Eos % (Auto) 3.4, Baso % (Auto) 1.1 H, Absolute Neuts (auto) 6.5, Absolute Lymphs (auto) 1.61, Nucleated RBC % 0, Sodium 140, Potassium 3.4 L, C hloride 109 H, Carbon Dioxide 23.0, Anion Gap 9, BUN 8, Creatinine 0.88, Estim Creat Clear Calc 134.17, Est GFR (MDRD) Af Amer 117, Est GFR (MDRD) Non-Af 97, B UN/Creatinine Ratio 9.1 L, Glucose 95, Calcium 8.7, Total Bilirubin 3.50 H, D irect Bilirubin 2.44 H, AST 106 H, ALT 303 H, Alkaline Phosphatase 191 H, Total Protein 6.1 L, Albumin 3.0 L, Globulin 3.1 Radiography Diagnostic Testing: Radiology Impression Endo Retro Cholangiopancreatogram 09/29/24 13:45 IMPRESSION: ERCP as described above. Electronically Signed: Dario Khan MD at 15:46 EST Reading Location ID and State: [facility] / [place] Tel , Service support , Rhythm Strip Rhythm Strip: Sinus Tach Rate: 124 Ectopy: None Physical Exam Narrative Scleral icterus Const oriented x3 and no apparent distress Resp normal respiratory effort Cardio regular rate GI soft to palpation GI Narrative: Minimally tender right upper quadrant patient also has 2 op sites on from liver biopsy in the epigastric and 1 in the right flank Assessment & Plan Assessment/Plan (1) Cholelithiasis: (2) Obstructive jaundice: PLAN: Plan Initially had plans to do a laparoscopic cholecystectomy today however since no choledocholithiasis was found this could be more of a primary biliary/liver issue will defer to GI for management. Cipro Flagyl continue per GI. Did discuss with patient that initially laparoscopic cholecystectomy was planned initially due to expecting choledocholithiasis causing the obstructive jaundice which was not found on ERCP. Patient also does not have a clear story of right upper quadrant pain after eating fatty greasy foods sounds like he had more back pain on and off and not always related to eating. Yadi Palma M.D. Pager: [phone] [facility] [address] [place] [address], [facility], [address] [place] [address] Office: [phone] Charges/Coding Visit Charges Inpatient E&M: 01445 Subs Hosp L2
[2024-09-30] MEDS: Midazolam 2 MG/2 ML Syringe IV ×4 (08:46→09:09)
[2024-09-30] MEDS: fentaNYL 100 MCG/2 ML Ampul IV ×3 (08:49→09:10)
[2024-09-30] MEDS: Lidocaine 2% (20 ml mdv) 20 ML Vial INFILT (09:12)
--- NOTE | 2024-09-30 09:31 | OP.PCM_ITS ---
Problems Associated Problem List Diagnoses (1) Obstructive jaundice: Operative Report (Standard) Operative Information Surgery/Procedure Performed: Liver biopsy Surgeon: Shelby Bueno NP Date of Procedure: 09/30/24 Procedure Start Time: 08:46 Procedure Stop Time: 09:17 Pre-Operative Diagnosis: obstructive jaundice Post-Operative Diagnosis: obstructive jaundice Select all DRAINS/GRAFTS/IMPLANTS that apply: None Type of Anesthesia: IV Sedation Estimated Blood Loss: 0 Specimen collected: Yes Description of specimen(s) removed: 4 biopsy cores Description of surgery: PROCEDURE: CT DIRECTED CORE LIVER BIOPSY ORDERING PROVIDER: Dr Francisco INDICATION: Obstructive jaundice, 54 years old. Male. PROVIDER: Shelby Bueno FLEXIBLE BABYSITTER CONSENT: Written informed consent was obtained having explained the risks, benefits and alternatives in detail with the patient who accepted the risks and agreed to proceed. Laboratory review and clinical assessment was performed. PRE-PROCEDURE SEDATION ASSESSMENT: Current history and physical dictated by referring provider and reviewed. No clinical changes since date of exam. Patient has a Mallampati Score of Class 2 and ASA Class of 2. PROCEDURAL SEDATION PROTOCOL: The Drugs used were: 4 mg Versed, IV, and 100 mcg Fentanyl, IV. The sedation time was: 31 minutes, starting at 8:46 AM and terminated at 9:17 AM. The procedural sedation protocol was independently monitored by the department nurse. RADIATION DOSAGE (If Supplied By Facility): CTDIvol = 27.56 mGy, DLP = 1442.46 mGycm Individualized dose optimization techniques were used for this CT. TECHNIQUE The patient was placed in a supine position. Using CT image guidance with image documentation, a suitable location in the right lobe of the liver was identified. The skin surface was prepped with chlorhexidine and draped in a sterile fashion. 2 % lidocaine was used for local anesthesia. Using an lateral approach, puncture of the liver was uneventful with an 18-gauge core needle system. 4, 18-gauge core samples were obtained, and submitted in formalin to the pathologist for further assessment. The needle was removed. An occlusive sterile dressing was applied. Patient tolerated the procedure well, and returned to the holding bay for nursing monitoring. IMPRESSION: CT directed core needle biopsy of the liver, using CT image guidance with image documentation as described. Procedural Sedation protocol utilized with independent monitoring. Surgical Findings: No complications Medical Office Coordinator edging machine setter: No Complications Complications: No Procedures Radiology Radiology CT Procedures: 95009 Biopsy Liver
[2024-09-30] MEDS: Ciprofloxacin 400 MG/200 ML BAG 200 MG IV ×2 (10:10→21:32)
[2024-09-30] MEDS: amLODIPine 5 MG Tablet PO (10:10)
[2024-09-30] MEDS: Polyethylene Glycol 3350 17 GM PACKET PO (10:18)
[2024-09-30] MEDS: Pantoprazole Sodium 40 MG Tablet PO (10:18)
--- NOTE | 2024-09-30 10:57 | PCM.PN.HOSP ---
Reason for Visit Reason for Visit: Diagnoses Calculus of bile duct without cholangitis or cholecystitis without obstruction (09/28/24) Obstruction of bile duct (09/28/24) Objective Data Objective Data Vital Signs: Vital Signs Temp Pulse Resp BP Pulse Ox O2 Del Method O2 Flow Rate 98.4 F 84 18 136/68 H 94 Room Air 2 09/30/24 08:12 09/30/24 09:35 09/30/24 09:35 09/30/24 09:35 09/30/24 09:35 09/30/24 09:35 09/30/24 09:20 Oxygen Flow Rate (L/min) 2 Oxygen Delivery Method Room Air Weight: 260 lb 9.382 oz Body Mass Index (BMI) 33.4 Intake & Output: Intake and Output for Last 24 Hours 09/28/24 09/29/24 09/30/24 23:59 23:59 23:59 Intake Total 1000 / 1000 2531 / 2568.25 137.25 / 137.25 Balance 1000 / 1000 2531 / 2568.25 137.25 / 137.25 Lab / Micro Data 09/30/24 06:37 09/30/24 06:37 Labs: Laboratory Results - last 24 hr 09/28/24 23:40: Hepatitis A IgM Ab Negative, Hep Bs Antigen Negative, Hep B Core IgM Ab Negative, Hepatitis C Ab (EIA) Non Reactive, Hep C Ab Comment Comment 09/29/24 06:44: ESR 14, Ferritin 1009 H, GGT 205 H, C-React Prot Ext Range 10.00 H 09/30/24 06:37: WBC 9.5, RBC 4.84, Hgb 15.0, Hct 45.0, MCV 93.0, MCH 31.0, MCHC 33.3, RDW Std Deviation 43.8, RDW Coeff of Nahomy 12.7, Plt Count 240, MPV 10.0, Immature Gran % (Auto) 0.300, Neut % (Auto) 68.5, Lymph % (Auto) 17.0 L, [place] % (Auto) 9.7, Eos % (Auto) 3.4, Baso % (Auto) 1.1 H, Absolute Neuts (auto) 6.5, Absolute Lymphs (auto) 1.61, Nucleated RBC % 0, Sodium 140, Potassium 3.4 L, Chloride 109 H, Carbon Dioxide 23.0, Anion Gap 9, BUN 8, Creatinine 0.88, Estim Creat Clear Calc 134.17, Est GFR (MDRD) Af Amer 117, Est GFR (MDRD) Non-Af 97, BUN/Creatinine Ratio 9.1 L, Glucose 95, Calcium 8.7, Total Bilirubin 3.50 H, Direct Bilirubin 2.44 H, AST 106 H, ALT 303 H, Alkaline Phosphatase 191 H, Total Protein 6.1 L, Albumin 3.0 L, Globulin 3.1 Radiography Diagnostic Testing: Radiology Impression Endo Retro Cholangiopancreatogram 09/29/24 13:45 IMPRESSION: ERCP as described above. Electronically Signed: Dario Khan MD at 15:46 EST , Rhythm Strip Rhythm Strip: Sinus Tach Rate: 124 Ectopy: None Physical Exam Narrative Seen and examined. Patient had ERCP yesterday and findings discussed with the patient. No abdominal pain. He had liver biopsy in the morning. Discussed with the surgeon. Total bilirubin is improving. No abdominal pain tenderness. Did not had bowel movement for 2 to 3 days but passing flatus. Physical exam General: Alert, Oriented x3, Cooperative HEENT: Deep icterus/jaundice. Atraumatic, PERRLA, EOMI, Normocephalic Oral: No Gingival or Mucosal Lesions/ Ulcerations Neck: Supple, No JVD, Negative Carotid Bruits Chest wall/Lungs: Air entry diminished in bilateral lung bases. No crepitation/rhonchi Cardiovascular: Regular rate, Regular Rhythm, Normal S1, Normal S2, No M/G/R Abdomen: Bowel Sounds Present, Soft, mild tenderness in RUQ. Nondistended : No dysuria. No renal angle tenderness. No suprapubic tenderness. Extremities: No edema, Capillary Refill Less than 3 Seconds Skin: Skin is yellow/jaundiced. 2 separate dressing for liver biopsy over right lower Kew. No active bleeding. Musculoskeletal: No Tenderness to Palpation of Joints or Extremities Neurological: Cranial nerves II-XII grossly intact, DTR 2+/4. No acute focal neurological deficit. Psych/Mental Status: Normal Affect, Appropriate. Assessment & Plan Assessment/Plan (1) Choledocholithiasis: (2) Obstructive jaundice: PLAN: Plan The patient is a 54 y/o M is admitted with 1 week ago symptoms not feeling good, and developed upper back pain between shoulder blades, took amoxicillin and then got better. In the ED for evaluation his urine was dark-colored and thought it was bloody. He also has loss of appetite did not eat and drink. Mild diffuse abdominal discomfort. Denies history of IV drug use. GB ultrasound shows contracted with multiple stones GB wall thickening and positive sonographic Motta sign consistent with acute cystitis. IHBR and CBD dilated #1. Obstructive jaundice/acute liver injury with suspicion of acute cholangitis: Patient is being admitted to [facility] floor. Did not had fever. Patient on IV fluid, antibiotics IV Cipro and Flagyl, and other supportive medications. N.p.o. for ERCP. GI consulted. General surgery consulted. No leukocytosis with neutrophil 76.8%. INR normal. TB 8.7, DVT 6.9. ALT 366, AST 102, alk phos 438. Lipase was 118. 09/30: Had ERCP on 09/29. Autoimmune blood test, viral hepatitis, protein electrophoresis were sent. Patient also had liver biopsy in the morning. No abdominal pain and exam is soft abdomen with no guarding or rigidity. TB and DB improved to half compared to yesterday but transaminase alkaline phosphatase similar. GGT 205. It seems patient might have PSC or other autoimmune cholangitis. Monitor liver chemistry. No stone was found. Discussed with the surgeon and plan for lap drew postponed. Impressions : - A single localized biliary stricture was found in the lower third of the main bile duct. 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 - The entire biliary tree was dilated, uncertain etiology. - A biliary sphincterotomy was performed. - The biliary tree was swept and nothing was found. - One temporary stent was placed into the common bile duct. #2. Incidental pulmonary nodules: CT chest/abdomen/pelvis with 2 adjacent 6 mm pulmonary nodules in the right middle lobe, will need follow-up CT imaging outpatient. #3. Hypokalemia, potentially false given slightly hemolyzed: Admission potassium 3.3 however mildly hemolyzed, will hold off on supplementation and repeat level in the a.m. with supplementation if noted to be low at that time. #4. Hyperglycemia, possibly stress response: Admission glucose elevated 144, suspect stress response given presentation, A1c 4.8. Diabetes mellitus ruled out #5. Hypertension: Blood pressure was elevated. Continue home regimen including lisinopril, amlodipine. Patient had feeling of dizziness with hydralazine therefore discontinued. Changed to labetalol IV as needed for extreme more than 180 mmHg #6. Tobacco Abuse: Encouraged cessation #7. Former alcohol abuse: Sober nearly 18 years, encourage continued sobriety. #8. Obesity: Weight loss and lifestyle changes encouraged. #9. Allergic rhinitis: Per current list does not appear to be on regimen, notes intermittent issues, encourage continued outpatient follow-up as previously arranged. #10. DVT prophylaxis: SCDs, heparin 5000 units heparin SQ Q12 hourly Charges/Coding Visit Charges Inpatient E&M: 39471 Subs Hosp L2
[2024-09-30] MEDS: oxyCODONE 5 MG Tablet PO ×3 (14:09→21:44)
--- NOTE | 2024-09-30 16:54 | PN.GI_ITS ---
Subjective Subjective Patient underwent liver biopsy. 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 Brushings were not taken. Due to some abnormalities on a cholangiogram involving the hilum and in the intrahepatic ducts I recommended a liver biopsy and possible MRCP. Objective Data Objective Data Vital Signs: Vital Signs Temp Pulse Resp BP Pulse Ox O2 Del Method O2 Flow Rate 98.0 F 90 18 144/89 H 99 Room Air 2 09/30/24 14:01 09/30/24 15:20 09/30/24 14:01 09/30/24 14:01 09/30/24 14:01 09/30/24 14:01 09/30/24 09:20 Oxygen Flow Rate (L/min) 2 Oxygen Delivery Method Room Air Weight: 260 lb 9.382 oz Body Mass Index (BMI) 33.4 Intake & Output: Intake and Output for Last 24 Hours 09/28/24 09/29/24 09/30/24 23:59 23:59 23:59 Intake Total 1000 / 1000 2531 / 2568.25 437.25 / 437.25 Balance 1000 / 1000 2531 / 2568.25 437.25 / 437.25 Lab / Micro Data 09/30/24 06:37 09/30/24 06:37 Labs: Laboratory Results - last 24 hr 09/28/24 23:40: Hepatitis A IgM Ab Negative, Hep Bs Antigen Negative, Hep B Core IgM Ab Negative, Hepatitis C Ab (EIA) Non Reactive, Hep C Ab Comment Comment 09/29/24 06:44: ESR 14, Ferritin 1009 H, GGT 205 H, C-React Prot Ext Range 10.00 H 09/30/24 06:37: WBC 9.5, RBC 4.84, Hgb 15.0, Hct 45.0, MCV 93.0, MCH 31.0, MCHC 33.3, RDW Std Deviation 43.8, RDW Coeff of Nahomy 12.7, Plt Count 240, MPV 10.0, Immature Gran % (Auto) 0.300, Neut % (Auto) 68.5, Lymph % (Auto) 17.0 L, Briscoe % (Auto) 9.7, Eos % (Auto) 3.4, Baso % (Auto) 1.1 H, Absolute Neuts (auto) 6.5, Absolute Lymphs (auto) 1.61, Nucleated RBC % 0, Sodium 140, Potassium 3.4 L, C hloride 109 H, Carbon Dioxide 23.0, Anion Gap 9, BUN 8, Creatinine 0.88, Estim Creat Clear Calc 134.17, Est GFR (MDRD) Af Amer 117, Est GFR (MDRD) Non-Af 97, B UN/Creatinine Ratio 9.1 L, Glucose 95, Calcium 8.7, Total Bilirubin 3.50 H, D irect Bilirubin 2.44 H, AST 106 H, ALT 303 H, Alkaline Phosphatase 191 H, Total Protein 6.1 L, Albumin 3.0 L, Globulin 3.1 Rhythm Strip Rhythm Strip: Sinus Tach Rate: 124 Ectopy: None Physical Exam Narrative Physical exam General: Alert, Oriented x3, Cooperative HEENT: Deep icterus/jaundice. Atraumatic, PERRLA, EOMI, Normocephalic Oral: No Gingival or Mucosal Lesions/ Ulcerations Neck: Supple, No JVD, Negative Carotid Bruits Chest wall/Lungs: Air entry diminished in bilateral lung bases. No crepitation/rhonchi Cardiovascular: Regular rate, Regular Rhythm, Normal S1, Normal S2, No M/G/R Abdomen: Bowel Sounds Present, Soft, mild tenderness in RUQ. Nondistended : No dysuria. No renal angle tenderness. No suprapubic tenderness. Extremities: No edema, Capillary Refill Less than 3 Seconds Skin: Skin is yellow/jaundiced. 2 separate dressing for liver biopsy over right lower Kew. No active bleeding. Musculoskeletal: No Tenderness to Palpation of Joints or Extremities Neurological: Cranial nerves II-XII grossly intact, DTR 2+/4. No acute focal neurological deficit. Psych/Mental Status: Normal Affect, Appropriate. Assessment & Plan Assessment/Plan (1) Choledocholithiasis: (2) Obstructive jaundice: PLAN: Plan The patient is a 54-year-old gentleman with past medical history of alcoholism who presented with worsening diarrhea and mid abdominal pain that progressed to back this discomfort. He underwent imaging that it showed Intermatic ductal dilation and mild, bile duct dilation on ultrasound up to 10 mm. He underwent ERCP and was discovered to have stricture at the distal common bile duct and possibly at the level of the maxine hepatis. He underwent liver biopsy today. He did have stent placed due to stricture seen in the distal common bile duct. He has been on antibiotics for possible ascending cholangitis associated with either primary or secondary cholangitis. He did have elevated lipase but no clear signs or symptoms of pancreatitis. Differential diagnosis does include overlap syndrome including alternate hepatitis and primary bili cirrhosis, IgG associated cholangiopathy, primary sclerosing cholangitis, drug-induced injury. Await liver biopsy. If patient does continue to improve he can be discharged to home and further workup as an outpatient. He will not need any antibiotics when he is discharged from the hospital as his LFTs are improving and he has good drainage of his stricture. ,, Charges/Coding Visit Charges Inpatient E&M: 11013 Subs Hosp L3
[2024-09-30] MEDS: MELATONIN 3 MG TABLET PO (21:32)
[2024-09-30] MEDS: Acetaminophen 325 MG Tablet 650 MG PO (21:44)
[2024-09-30] MEDS: HYDROmorphone 0.5 MG/0.5 ML SYRINGE IV (23:25)
[2024-10-01 02:00] VITALS: BP 156/100; PULSE 74; PULSE 91; RESP 14; TEMP 36.6; O2SAT 96
[2024-10-01 04:56] LABS: Absolute Lymphocyte Count 2.06 X10^3/uL (0.83-4.51); Absolute Neutrophil Count 5.7 X10^3/uL (2.0-7.7); Basophil# 0.12 X10^3/uL; Basophil% 1.3 % (0-1); Eosinophil# 0.38 X10^3/uL; Eosinophils% 4.1 % (0-5); Lymphocyte # 2.06 X10^3/ul (0.83-4.51); Lymphocyte % 22.2 % (19-41); Mean Corp Hgb Conc 34.1 g/dL (32-36); Mean Corpuscular Hgb 32.1 pg (27.0-32.0); Mean Platelet Vol. 10.1 fl (6.2-12.0); Monocyte# 0.95 X10^3/uL; Monocyte% 10.2 % (0-10); NRBC Flagged by Analyzer 0 % (0-5); Neutrophil # 5.73 X10^3/uL (2.7-7.7); Neutrophil % 61.8 % (47-70); Platelet Count 226 K/mm3 (150-450); RBC Distribution Width SD 44.8 fl (35.1-43.9); Red Blood Count 4.68 M/mm3 (4.6-6.2); White Blood Count 9.3 K/mm3 (4.4-11.0)
[2024-10-01 05:30] LABS: AST(SGOT) 130 U/L (15-37); Alanine Aminotransfer ALT/SGPT 317 U/L (16-61); Albumin, Serum 2.9 g/dL (3.2-5.0); Alkaline Phosphatase 176 U/L (45-117); Anion Gap 1 (5-15); BUN 8 mg/dL (7-18); BUN/Creat Ratio 8.3 RATIO (10-20); Bilirubin, Direct 1.79 mg/dL (0.00-0.30); Calcium,Total 9.1 mg/dL (8.5-10.1); Chloride 106 mmol/L (98-107); Creatinine, Serum 0.97 mg/dL (0.70-1.30); EST Glomerular Filtration Rate 87 mL/min (>60); Est Glom Filt Rate - Afr Amer 105 mL/min (>60); Estimated Creatinine Clearance 121.72 ml/min; Globulin 3.3 g/dL (2.2-4.2); Glucose 98 mg/dL (74-106); Potassium 3.9 mmol/L (3.5-5.1); Protein, Total 6.2 g/dL (6.4-8.2); Sodium Level 140 mmol/L (136-145)
[2024-10-01] MEDS: metroNIDAZOLE 500 MG/100 ML BAG 100 MG IV (05:44)
--- NOTE | 2024-10-01 07:26 | MRI_ITS ---
STUDY: MR CHOLANGIOPANCREATOGRAPHY (MRCP) REASON FOR EXAM: Male, 54 years old. suspected PSC -- SMALL BILIARY DUCTES TECHNIQUE: Standard MRCP technique was utilized. 3-D reconstructions were performed. COMPARISON: Ultrasound and ERCP 09/29/2024 FINDINGS: Gall Bladder: Contracted gallbladder with multiple filling defects consistent with stones. Cystic duct: Normal with no demonstrated fixed filling defect. Intrahepatic ducts: Normal visualized intrahepatic ducts with no demonstrated fixed filling defect, dilation or stricture. Common hepatic duct: Normal with no demonstrated fixed filling defect, dilation or stricture. Common bile duct: Biliary stent within the common bile duct. Pancreatic duct: Normal with no demonstrated fixed filling defect, dilation or stricture. MRI/MRCP Abdomen without Contrast IMPRESSION: Cholelithiasis. Biliary stent. Electronically Signed: Jeremiah Prabhakar MD at 13:24 EST ,
[2024-10-01 07:58] VITALS: PULSE 91
[2024-10-01 08:03] VITALS: BMI 33.6
[2024-10-01 08:12] VITALS: BP 168/106; PULSE 100; RESP 18; TEMP 36.7; O2SAT 95
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
[2024-10-01 12:22] VITALS: BP 157/99; PULSE 84; RESP 16; TEMP 36.6; O2SAT 97
[2024-10-01] MEDS: Ciprofloxacin 400 MG/200 ML BAG 200 MG IV (12:38)
[2024-10-01] MEDS: 0.9% Saline Lock 10 ML Syringe IV (12:38)
[2024-10-01] MEDS: Pantoprazole Sodium 40 MG Tablet PO (13:03)
[2024-10-01] MEDS: amLODIPine 5 MG Tablet PO (13:03)
[2024-10-01 13:05] VITALS: PULSE 98
[2024-10-01 14:09] LABS: ANTINUCLEAR ANTIBODIES DIRECT Negative (Negative)
--- NOTE | 2024-10-01 14:33 | PCM.DC ---
Discharge Instructions Diet Discharge Diet: Light diet - advance as tolerated and Low fat / Low cholesterol Activity Discharge Activity: Return to Normal Activity Weight Bearing Status: Weight bearing as tolerated Dressing / Incision Call your doctor if you observe: Fever of 101 or Higher, Coldness, Increased Pain, Numbness or Tingling, Change in Color, Inability to urinate, Inability to have a bowel movement, Shortness of breath, Dizziness, Fainting spells, Swelling in the ankles, Chest pain, Prolonged hiccupping, Increased palpitations (irregular heartbeat) and Calf discomfort Follow Up Care When: IN 2 WEEKS Test Results: Test results from this visit will be discussed in further detail at your follow-up appointment, if applicable. Discharge Plan Admission Admit Date/Time: 09/28/24 23:28 Primary Reason for Your Visit: Acute liver injury. Attending Provider: Ajay Francisco Primary Care Provider: Greer Patel Consulting Providers: Yadi Palma; Arianna Mccall Instructions Additional Instructions / Restrictions: Avoid hepatotoxic medications including Tylenol, total dose more than 2 g/day. Patient had IV antibiotics for 3 days therefore not discharged antibiotic and does not seem acute cholangitis. Penicillin group antibiotics might cause drug-induced liver injury. Discharge Orders/Prescriptions Prescriptions: New sennosides-docusate sodium [Stimulant Laxative Plus] 8.6-50 mg Tablet 2 tab PO BID PRN PRN (Reason: Constipation) Qty: 0 0RF Continued amlodipine 5 mg tablet 5 mg PO DAILY Qty: 30 0RF Referrals / Follow Up: Mitch Rendon DO [Med Staff - Active Staff] - See Referral Note (Follow-up on 10/03/[address] Rendon) Yadi Palma MD [Med Staff - Active Staff] - Within 1 Month Greer Patel, SERGING MACHINE OPERATOR [employer]-C [Primary Care Provider] - Disposition Disposition (needs filled in before D/C Order can be placed): Home, Self Care
[2024-10-01 14:41] VITALS: BP 142/68; PULSE 98; RESP 18; TEMP 36.6; O2SAT 96
--- NOTE | 2024-10-01 14:41 | DS.PCM_ITS ---
Providers Date of Admission: 09/28/24 Date of Discharge: 10/01/24 Primary Care Physician: RACHEL Brooks, INSURANCE LOSS CONTROL SURVEYOR-C Consultations 09/29/24 00:37 Consult: Gastroenterology Routine Consulting Provider: [facility] Reason for Consult: Obstructive jaundice, choledocholithiasis EMERGENT Consult: No Notified: Yes Date Notified: 09/28/24 Time Notified: 23:31 Method of Notification: Text Consult: General Surgery Routine Consulting Provider: Yadi Palma Reason for Consult: Obstructive jaundice, choledocholithiasis EMERGENT Consult: No Notified: Yes Date Notified: 09/28/24 Time Notified: 23:31 Method of Notification: ED Physician Initiated Reason For Visit: CHOLEDOCHOLITIASIS, OBSTRUCTIVE Diagnosis Discharge Diagnosis (1) Choledocholithiasis: Status: Acute Code(s): K80.50 - Calculus of bile duct without cholangitis or cholecystitis without obstruction (2) Obstructive jaundice: Status: Acute Code(s): K83.1 - Obstruction of bile duct Plan The patient is a 54 y/o M is admitted with 1 week ago symptoms not feeling good, and developed upper back pain between shoulder blades, took amoxicillin and then got better. In the ED for evaluation his urine was dark-colored and thought it was bloody. He also has loss of appetite did not eat and drink. Mild diffuse abdominal discomfort. Denies history of IV drug use. GB ultrasound shows contracted with multiple stones GB wall thickening and positive sonographic Motta sign consistent with acute cystitis. IHBR and CBD dilated #1. Obstructive jaundice/acute liver injury possible passed CBD stone or DILI due to amoxicillin: Patient is being admitted to MedSurg floor. Did not had fever. Patient on IV fluid, antibiotics IV Cipro and Flagyl, and other supportive medications. N.p.o. for ERCP. GI consulted. General surgery consulted. No leukocytosis with neutrophil 76.8%. INR normal. TB 8.7, DVT 6.9. ALT 366, AST 102, alk phos 438. Lipase was 118. 09/30: Had ERCP on 09/29. Autoimmune blood test, viral hepatitis, protein electrophoresis were sent. Patient also had liver biopsy in the morning. No abdominal pain and exam is soft abdomen with no guarding or rigidity. TB and DB improved to half compared to yesterday but transaminase alkaline phosphatase similar. GGT 205. It seems patient might have PSC or other autoimmune cholangitis. Monitor liver chemistry. No stone was found. Discussed with the surgeon and plan for lap drew postponed. Impressions : - A single localized biliary stricture was found in the lower third of the main bile duct. 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 - The entire biliary tree was dilated, uncertain etiology. - A biliary sphincterotomy was performed. - The biliary tree was swept and nothing was found. - One temporary stent was placed into the common bile duct. 10/01: Patient was all dressed up to go home today. Advised for MRCP initially was reluctant thinking it to be ERCP but educated about the MRCP and he agreed. MRCP shows cholelithiasis and biliary stent within the CBD but normal intrahepatic ducts, cystic duct, common hepatic duct and pancreatic duct with no fixed filling defect stricture or dilatation Patient had 3 days of IV antibiotics. I do not suspect cholangitis as patient does not have fever, leukocytosis or abdominal pain therefore no further antibiotic indicated and might cause drug-induced liver injury therefore not prescribed. Total bilirubin and direct bilirubin and alkaline phosphatase are decreasing. Mild increase in ALT and AST but expected to improve in coming days. Patient stated he is following Dr. Rendon on coming 10/03/2024. Follow-up with surgery Dr. Palma in 1 month for cholelithiasis. #2. Incidental pulmonary nodules: CT chest/abdomen/pelvis with 2 adjacent 6 mm pulmonary nodules in the right middle lobe, will need follow-up CT imaging outpatient. #3. Hypokalemia, potentially false given slightly hemolyzed: Admission potassium 3.3 however mildly hemolyzed, will hold off on supplementation and repeat level in the a.m. with supplementation if noted to be low at that time. #4. Hyperglycemia, possibly stress response: Admission glucose elevated 144, suspect stress response given presentation, A1c 4.8. Diabetes mellitus ruled out #5. Hypertension: Blood pressure was elevated. Continue home regimen including lisinopril, amlodipine. Patient had feeling of dizziness with hydralazine therefore discontinued. Changed to labetalol IV as needed for extreme more than 180 mmHg #6. Tobacco Abuse: Encouraged cessation #7. Former alcohol abuse: Sober nearly 18 years, encourage continued sobriety. #8. Obesity: Weight loss and lifestyle changes encouraged. #9. Allergic rhinitis: Per current list does not appear to be on regimen, notes intermittent issues, encourage continued outpatient follow-up as previously arranged. #10. DVT prophylaxis: SCDs, heparin 5000 units heparin SQ Q12 hourly Discharge medication reconciliation done. Discharge follow-up instructions completed. Discharge process discussed with the patient and all questions were answered to patient's satisfaction. Follow with PCP in 1 to 2 weeks Total time spent, exact 35 minutes on discharge meds reconciliation, examination, coordination of care with nurses and ancillary staff, review of imaging and blood test and discussion with the patient on follow-up instructions. Clinical Impression(s) from Imaging Studies Chest/Abdomen/Pelvis CT 09/28/24 22:14 IMPRESSION: 1. Intrahepatic duct dilation and mild common bile duct dilation, new as compared to 05/27/2024. Consider follow-up with MRCP. 2. Contracted gallbladder with gallstones. 3. 2 adjacent 6 mm pulmonary nodules in the right middle lobe. Per Fleischner criteria, recommend follow-up CT of the chest in 6-12 months. Electronically Signed: Jose Funes DO at 23:16 EST , Gallbladder Ultrasound 09/28/24 23:35 IMPRESSION: 1. Contracted gallbladder with multiple gallstones, gallbladder wall thickening and a positive sonographic Motta''s sign consistent with acute cholecystitis. 2. Intrahepatic duct dilation and common bile duct dilation. Consider follow-up with MRCP. Endo Retro Cholangiopancreatogram 09/29/24 13:45 IMPRESSION: ERCP as described above. MRCP 10/01/24 07:26 IMPRESSION: Cholelithiasis. Biliary stent. Electronically Signed: Jeremiah Prabhakar MD at 13:24 EST , Laboratory Results 09/30/24 06:37: ALISHA Screen Negative, KEEGAN-1 Antibody Not Reportable, SS-A/Ro IgG Antibody Not Reportable, SS-B/La IgG Antibody Not Reportable, Sm (Adames) Antibody Not Reportable, TRADE MARK ATTORNEY Antibody Not Reportable, Scl-70 Scleroderma Ab Not Reportable, Double Strand DNA Ab Not Reportable, Centromere B Antibody Not Reportable 10/01/24 04:17: WBC 9.3, RBC 4.68, Hgb 15.0, Hct 44.0, MCV 94.0, MCH 32.1 H, MCHC 34.1, RDW Std Deviation 44.8 H, RDW Coeff of Nahomy 13.0, Plt Count 226, MPV 10.1, Immature Gran % (Auto) 0.400, Neut % (Auto) 61.8, Lymph % (Auto) 22.2, M milla % (Auto) 10.2 H, Eos % (Auto) 4.1, Baso % (Auto) 1.3 H, Absolute Neuts (auto) 5.7, Absolute Lymphs (auto) 2.06, Nucleated RBC % 0, Sodium 140, Potassium 3.9, Chloride 106, Carbon Dioxide 33.0 H, Anion Gap 1 L, BUN 8, Creatinine 0.97, Estim Creat Clear Calc 121.72, Est GFR (MDRD) Af Amer 105, Est GFR (MDRD) Non-Af 87, BUN/Creatinine Ratio 8.3 L, Glucose 98, Calcium 9.1, Total Bilirubin 2.80 H, Direct Bilirubin 1.79 H, AST 130 H, ALT 317 H, Alkaline Phosphatase 176 H, Total Protein 6.2 L, Albumin 2.9 L, Globulin 3.3 Medications at Discharge Home Medications amlodipine 5 mg tablet 5 mg PO DAILY #30 tabs 05/27/24 sennosides 8.6 mg-docusate sodium 50 mg tablet (Stimulant Laxative Plus) 2 tab PO BID PRN PRN Constipation #0 tabs 10/01/24 Physical Exam Narrative Seen and examined. Patient had MRCP today, findings discussed with the patient. No abdominal pain. Total and direct bilirubin is improving. No abdominal pain or tenderness. Had bowel movement. Physical exam General: Alert, Oriented x3, Cooperative HEENT: Deep icterus/jaundice improving. Atraumatic, PERRLA, EOMI, Normocephalic Oral: No Gingival or Mucosal Lesions/ Ulcerations Neck: Supple, No JVD, Negative Carotid Bruits Chest wall/Lungs: Air entry diminished in bilateral lung bases. No crepitation/rhonchi Cardiovascular: Regular rate, Regular Rhythm, Normal S1, Normal S2, No M/G/R Abdomen: Bowel Sounds Present, Soft, mild tenderness in RUQ. Nondistended : No dysuria. No renal angle tenderness. No suprapubic tenderness. Extremities: No edema, Capillary Refill Less than 3 Seconds Skin: Skin is yellow/jaundiced. 2 separate dressing for liver biopsy over right lower Kew. No active bleeding. Musculoskeletal: No Tenderness to Palpation of Joints or Extremities Neurological: Cranial nerves II-XII grossly intact, DTR 2+/4. No acute focal neurological deficit. Psych/Mental Status: Normal Affect, Appropriate. Weight / BMI Weight Weight: 262 lb 5.601 oz Body Mass Index (BMI) 33.6 ABG / Lab / Microbiology Data 10/01/24 04:17 10/01/24 04:17 Laboratory: Laboratory Results - last 24 hr 09/30/24 06:37: ALISHA Screen Negative, KEEGAN-1 Antibody Not Reportable, SS-A/Ro IgG Antibody Not Reportable, SS-B/La IgG Antibody Not Reportable, Sm (Adames) Antibody Not Reportable, TRADE MARK ATTORNEY Antibody Not Reportable, Scl-70 Scleroderma Ab Not Reportable, Double Strand DNA Ab Not Reportable, Centromere B Antibody Not Reportable 10/01/24 04:17: WBC 9.3, RBC 4.68, Hgb 15.0, Hct 44.0, MCV 94.0, MCH 32.1 H, MCHC 34.1, RDW Std Deviation 44.8 H, RDW Coeff of Nahomy 13.0, Plt Count 226, MPV 10.1, Immature Gran % (Auto) 0.400, Neut % (Auto) 61.8, Lymph % (Auto) 22.2, M milla % (Auto) 10.2 H, Eos % (Auto) 4.1, Baso % (Auto) 1.3 H, Absolute Neuts (auto) 5.7, Absolute Lymphs (auto) 2.06, Nucleated RBC % 0, Sodium 140, Potassium 3.9, Chloride 106, Carbon Dioxide 33.0 H, Anion Gap 1 L, BUN 8, Creatinine 0.97, Estim Creat Clear Calc 121.72, Est GFR (MDRD) Af Amer 105, Est GFR (MDRD) Non-Af 87, BUN/Creatinine Ratio 8.3 L, Glucose 98, Calcium 9.1, Total Bilirubin 2.80 H, Direct Bilirubin 1.79 H, AST 130 H, ALT 317 H, Alkaline Phosphatase 176 H, Total Protein 6.2 L, Albumin 2.9 L, Globulin 3.3 Radiography Diagnostic Testing: Radiology Impression MRCP 10/01/24 07:26 IMPRESSION: Cholelithiasis. Biliary stent. Electronically Signed: Jeremiah Prabhakar MD at 13:24 EST Reading Location ID and State: [id number] / [employer] , Service support , Orbit X-Ray 10/01/24 09:25 IMPRESSION: No demonstrated metallic orbital foreign body. The patient is cleared for an MRI examination. Electronically Signed: Jeremiah Prabhakar MD at 9:54 EST Reading Location ID and State: [id number] / [employer] , Service support , D/C Instructions Discharge Diet: Light diet - advance as tolerated and Low fat / Low cholesterol Weight Bearing Status: Weight bearing as tolerated Call your doctor if you observe: Fever of 101 or Higher, Coldness, Increased Pain, Numbness or Tingling, Change in Color, Inability to urinate, Inability to have a bowel movement, Shortness of breath, Dizziness, Fainting spells, Swelling in the ankles, Chest pain, Prolonged hiccupping, Increased palpitations (irregular heartbeat) and Calf discomfort DC O2, CPAP, BIPAP Needs Additional Home O2 Discharge instructions: No DC home with Oxygen: No When: IN 2 WEEKS Meaningful Use Info Meaningful Use Meaningful Use Diagnoses (Choose all that apply): None applicable Ischemic Stroke Statin Dosing Therapy Reference: STATIN DOSE THERAPY REFERENCE: * Patients > 75 years receive moderate or high dose statin therapy. * Patients 75 years or YOUNGER should receive HIGH intensity statin dose unless contraindicated. You will be required to document reason for non-treatment if statin daily dose does not meet guidelines. HIGH DOSE STATIN THERAPY DAILY Atorvastatin > than or = to 40 mg Rosuvastatin > than or = to 20 mg Amlodipine + Atorvastatin > than or = to 2.5/40 mg Ezetimibe + Simvastatin 10/80 mg Simvastatin 80mg Discharge Plan Admission Admit Date/Time: 09/28/24 23:28 Primary Reason for Your Visit: Acute liver injury. Attending Provider: Ajay Francisco Primary Care Provider: Greer Patel Consulting Providers: Yadi Palma; Arianna Mccall Instructions Additional Instructions / Restrictions: Avoid hepatotoxic medications including Tylenol, total dose more than 2 g/day. Patient had IV antibiotics for 3 days therefore not discharged antibiotic and does not seem acute cholangitis. Penicillin group antibiotics might cause drug- induced liver injury. Discharge Orders/Prescriptions Prescriptions: New sennosides-docusate sodium [Stimulant Laxative Plus] 8.6-50 mg Tablet 2 tab PO BID PRN PRN (Reason: Constipation) Qty: 0 0RF Continued amlodipine 5 mg tablet 5 mg PO DAILY Qty: 30 0RF Referrals / Follow Up: Mitch Rendon DO [Med Staff - Active Staff] - See Referral Note (Follow-up on 10/03/[address] Rendon) Yadi Palma MD [Med Staff - Active Staff] - Within 1 Month Greer Patel, INSURANCE LOSS CONTROL SURVEYOR-C [Primary Care Provider] - Disposition Disposition (needs filled in before D/C Order can be placed): Home, Self Care Charges/Coding Visit Charges Inpatient E&M: 51714 Disch Hosp >30min
[2024-10-01 15:08] LABS: Anti-Mitochondrial AB <20.0 Units (0.0-20.0)
[2024-10-03 16:10] LABS: ACCA 37 units (0-90); ALCA 15 units (0-60); AMCA 16 units (0-100); HEPATITIS B SURFACE AG Negative (Negative); Hep C Antibodies Non Reactive (Non Reactive); Hepatitis A IgM Antibody Negative (Negative); Hepatitis B Core AB IgM Negative (Negative); IgG, Quant 916 mg/dL (603-1613); Immunoglobulin G, Subclass 1 564 mg/dL (248-810); Immunoglobulin G, Subclass 2 206 mg/dL (130-555); Immunoglobulin G, Subclass 3 29 mg/dL (15-102); Immunoglobulin G, Subclass 4 27 mg/dL (2-96); gASCA 8 units (0-50)
[2024-10-04 09:09] LABS: Albumin 3.6 g/dL (2.9-4.4); Alpha-1-Globulins 0.3 g/dL (0.0-0.4); Alpha-2-Globulins 0.9 g/dL (0.4-1.0); Anti-Smooth Muscle ABS 7 Units (0-19); CMV Acute Antibody IgM < 30.0 AU/mL (0.0-29.9); CMV Antibody IgG < 0.60 U/mL (0.00-0.59); Ceruloplasmin 29.7 mg/dL (16.0-31.0); Copper, Serum or Plasma 110 ug/dL (69-132); EBV Acute VCA IgM < 36.0 U/mL (0.0-35.9); EBV Nuclear Antigen IgG > 600.0 U/mL (0.0-17.9); Gamma Globulin 0.9 g/dL (0.4-1.8); Haptoglobin 253 mg/dL (29-370); Immunoglobulin A 158 mg/dL (90-386); Immunoglobulin E 273 IU/mL (6-495); Immunoglobulin G 953 mg/dL (603-1613); Immunoglobulin M 126 mg/dL (20-172); PROEL- TOTAL PROTEIN 6.7 g/dL (6.0-8.5)
== END 2024-10-01 15:13 | disposition home or self-care (01) ==
LOC: ED 23:23 → MS3 23:49
PROVIDERS: Internal Medicine Gastroenterology; Admitting Provider Family Medicine; Emergency Provider Emergency Medicine; PCP Nurse Practitioner Family; Visit Provider Internal Medicine
PROC: 0F798DZ Dilation of Common Bile Duct with Intraluminal Device, Via Natural or Artificial Opening Endoscopic (ICD-10-PCS; CPT 43260; principal; 2024-09-29 12:40)
DX: K83.01 Primary sclerosing cholangitis (principal); E66.9 Obesity, unspecified; K73.9 Chronic hepatitis, unspecified; I10 Essential (primary) hypertension; F17.210 Nicotine dependence, cigarettes, uncomplicated; J30.9 Allergic rhinitis, unspecified; E87.6 Hypokalemia; K80.20 Calculus of gallbladder without cholecystitis without obstruction; R73.9 Hyperglycemia, unspecified; R00.0 Tachycardia, unspecified; R91.8 Other nonspecific abnormal finding of lung field; Z68.33 Body mass index [BMI] 33.0-33.9, adult; Z88.2 Allergy status to sulfonamides; Z88.8 Allergy status to other drugs, medicaments and biological substances; Z88.0 Allergy status to penicillin; Z79.899 Other long term (current) drug therapy; Z87.898 Personal history of other specified conditions
CPT/HCPCS: 36415; 70030; 71260; 74177; 74181; 74330; 76000; 76705; 77012; 80048; 80074; 80076; 81001; 82390; 82525; 82550; 82728; 82784; 82785; 82787; 82977; 83010; 83036; 83516; 83690; 84145; 84165; 84484; 85025; 85610; 85652; 85730; 86036; 86038; 86140; 86225; 86235; 86334; 86644; 86645; 86664; 86665; 86671; 88307; 88312; 93005; 99156; 99157; 99284; 99406; J7030; J7040; Q9967; A4216; J0744; J2405

== ENCOUNTER → 2024-12-02 | Outpatient (CLI) | payer MEDICAID, SELFPAY ==
[2024-12-02 16:39] LABS: Absolute Lymphocyte Count 2.14 X10^3/uL (0.83-4.51); Absolute Neutrophil Count 8.1 X10^3/uL (2.0-7.7); Basophil# 0.16 X10^3/uL; Basophil% 1.4 % (0-1); Eosinophil# 0.32 X10^3/uL; Eosinophils% 2.8 % (0-5); Hematocrit 50.5 % (40-54); Hemoglobin 17.2 g/dL (13.0-16.5); Lymphocyte # 2.14 X10^3/ul (0.83-4.51); Lymphocyte % 18.4 % (19-41); Mean Corp Hgb Conc 34.1 g/dL (32-36); Mean Corpuscular Volume 91.2 fL (80-94); Monocyte# 0.84 X10^3/uL; Monocyte% 7.2 % (0-10); NRBC Flagged by Analyzer 0 % (0-5); Neutrophil # 8.09 X10^3/uL (2.7-7.7); Neutrophil % 69.5 % (47-70); Platelet Count 439 K/mm3 (150-450); RBC Distribution Width CV 13.2 % (11.6-14.6); RBC Distribution Width SD 44.4 fl (35.1-43.9); Red Blood Count 5.54 M/mm3 (4.6-6.2); White Blood Count 11.6 K/mm3 (4.4-11.0)
[2024-12-02 17:03] LABS: AST(SGOT) 15 U/L (15-37); Alanine Aminotransfer ALT/SGPT 53 U/L (16-61); Albumin, Serum 3.6 g/dL (3.2-5.0); Alkaline Phosphatase 97 U/L (45-117); Anion Gap 7 (5-15); BUN 7 mg/dL (7-18); Calcium,Total 9.2 mg/dL (8.5-10.1); Chloride 105 mmol/L (98-107); EST Glomerular Filtration Rate 83 mL/min (>60); Est Glom Filt Rate - Afr Amer 101 mL/min (>60); Ferritin 393 ng/mL (26-388); Globulin 3.7 g/dL (2.2-4.2); Glucose 109 mg/dL (74-106); Iron 98 ug/dL (65-175); Iron Binding Capacity,Total 274 ug/dL (250-450); Potassium 3.9 mmol/L (3.5-5.1); Protein, Total 7.3 g/dL (6.4-8.2); Sodium Level 140 mmol/L (136-145)
== END | disposition home or self-care (01) ==
PROVIDERS: PCP Nurse Practitioner Family; Referring Provider Nurse Practitioner Acute Care; Visit Provider Nurse Practitioner Acute Care
DX: K80.19 Calculus of gallbladder with other cholecystitis with obstruction (principal); R74.8 Abnormal levels of other serum enzymes
CPT/HCPCS: 36415; 80053; 82728; 83540; 83550; 85025

== ENCOUNTER → 2024-12-10 | Outpatient (CLI) | payer MEDICAID, SELFPAY ==
--- NOTE | 2024-12-10 17:52 | CT_ITS ---
PROCEDURE: LOW DOSE CT LUNG SCREENING REASON FOR EXAM: Current smoker. Patient has smoked 3-4 packs per day. History of lung nodules.o TECHNIQUE: Low Dose CT Lung Screening without contrast COMPARISON: Comparison is made with prior study dated September 28, 2024. FINDINGS: PULMONARY NODULES: (Only nodules >6mm are reported) Nodules described below are on series unless otherwise specified. Pulmonary Nodules: Stable 5 mm noncalcified nodule in the anterior aspect of the right middle lobe. Hardware:None Lymph Nodes:No mediastinal hilar or axillary lymphadenopathy. Heart and Vasculature:Normal heart size. No pericardial effusion.Thoracic aorta and pulmonary arteries have normal contours; noncontrast technique limits evaluation. Coronary Artery Calcifications: Present Lungs and Airways: The lungs are normally expanded and clear. Pleura:No pleural effusion. No pneumothorax. Upper Abdomen:Visualized portions of the upper abdominal viscera are unremarkable. Bones:Bone windows are unremarkable. CT/Low Dose CT Lung Screening IMPRESSION: 1. BASED ON THE ACR LUNG RADS FOR THE MOST SUSPICIOUS NODULE (IF ANY) DESCRIBE D IN THIS REPORT, THE OVERALL LUNG RADS SCORE IS 1. 1 - NEGATIVE. RECOMMEND 12-MONTH SCREENING LDCT.. 2. SMOKING CESSATION COUNSELING IS RECOMMENDED IF THE PATIENT IS STILL SMOKING . 3. OTHER SIGNIFICANT FINDINGSNone. One or more dose reduction techniques were used (e.g., Automated exposure contr ol, adjustment of the mA and/or kV according to patient size, use of iterative reconstruction technique). The following information is provided for reference:Lung-RADS 2021 Assessment C ategories. Additional information involving Lung-RADS is available at www.acr.org. 0-INCOMPLETE 1-NEGATIVE:No nodules or definitely benign nodules. Complete, central, popcorn , or centric ring calcifications OR fat containing 2-BENIGN APPEARANCE (based on imaging features or indolent behavior). Juxtaple ural nodule: < 10mm AND solid; smooth margins; oval, entiform, or triangular shape Solid nodule: <6mm at baseline or new< 4mm Part solid Nodule: < 6mm total mean diameter at baseline Nonsolid nodule:(GGN) < 30mm OR >=30mm stable or slowly growing Airway nodule, subsegmental at baseline, new, or stable Category 3 nodule stabl e or decreased in size at 6-month follow-up CT or Category 3 or 4A nodules that resolve on follow-up OR category 4B findings prov en to be benign following diagnotic work up. 3 - Probably Benign (Based on imaging features or behavior) Solid Nodule: >= 6 to <8mm at baseline OR new 4 to <6mm Part-solid nodule: >= 6mm toal mean diam. with solid component <6mm at baseline OR new < 6mm total mean diam. Non-solid nodule: GGN >= 30mm at baseline or new Atypical pulmonary cyst: Growing cystic component (mean diam.) of thick-walled cyst Category 4A nodule stable or decreased in size at 3-month follow-up CT (excl.ai rway). 4A - Suspicious Solid nodule: >=8 to < 15mm at baseline OR growing < 8mm OR new 6 to < 8mm Part solid nodule: >= 6mm total mean diam. w/ solid component >=6mm to < 8mm at baseline OR new or growing < 4mm solid component Airway nodule, segmental or more proximal at baseline or new Atypical pulmonary cyst: Thick-walled OR multilocular at baseline OR becomes mu ltilocular 4B - Very Suspicious Airway nodule, segmental or more proximal, and stable or growing Solid nodule: >= 15mm at baseline OR new or growing >= 8mm Part solid nodule: Solid component >= 8mm OR new or growing >= 4mm solid compon ent Atypical pulmonary cyst: Thick-walled with growing wall thickness/nodularity OR Growing multilocular (mean diam.) OR Multilocular with increased loculation or new/increased opacity Slow-growing solid or part solid nodule w/ growth over multiple screening exams 4X - Very Suspicious Category 3 or 4 nodules with additional features that increase the suspicion fo r lung cancer. S - Clinically Significant or potentially significant findings (non-lung cancer ) Reading Location: [place] [address]
== END | disposition home or self-care (01) ==
LOC: CT 17:49
PROVIDERS: PCP Nurse Practitioner Family; Referring Provider Nurse Practitioner Family; Visit Provider Nurse Practitioner Family
DX: F17.290 Nicotine dependence, other tobacco product, uncomplicated (principal)
CPT/HCPCS: 71271

== ENCOUNTER → 2024-12-18 | Outpatient (CLI) | payer MEDICAID, SELFPAY ==
[2024-12-18 17:27] LABS: Platelet Count 243 K/mm3 (150-450); Reticulocyte Count 1.82 % (0.5-1.5)
[2024-12-18 18:16] LABS: Vitamin B12 386 pg/mL (211-911)
[2024-12-20 09:08] LABS: Transferrin 228 mg/dL (177-329)
== END | disposition home or self-care (01) ==
LOC: LAB 17:04
PROVIDERS: PCP Nurse Practitioner Family; Referring Provider Nurse Practitioner Acute Care; Visit Provider Nurse Practitioner Acute Care
DX: R79.89 Other specified abnormal findings of blood chemistry (principal); D58.2 Other hemoglobinopathies
CPT/HCPCS: 82607; 82746; 84466; 85045

== ENCOUNTER 2024-12-31 15:24 | Observation (INO) | payer MEDICAID, SELFPAY ==
--- NOTE | 2024-12-18 17:25 | PAT.ANESEVAL ---
Pre-Assessment Diagnosis/Proposed Procedure Planned Operative Procedure(s): RAISSA CHOLEY WITH GRAMS ERCP WITH DR AGUILERA Anesthesia History Anesthesia History - optometric aide: Anesthesia History - optometric aide Hx Hospitalization Yes: 09/202412/18/24 15:40 Any Problems With Anesthesia No 12/18/24 15:40 Cholinesterase deficiency No 12/18/24 15:40 You/Your Family Experience No 12/18/24 15:40 fever (hyperthermia) with Relationship Recent Exposure to Contagious Disease Does patient have nerve No 12/18/24 15:40 stimulator Patient instructed to have device shut off --Does patient have Pacemaker or ICD? When Was Last Pacemaker Check QUESTION #4 FULL TEXT: You/Your Family Experience fever (hyperthermia) with Anesthesia Last Oral Intake Last Oral intake: Last Oral Intake NPO since Meds taken in AM with sips of water? Meds patient instructed to take am of surgery PONV PONV - optometric aide: PONV - optometric aide Female No 12/18/24 15:40 HX of Motion Sickness No 12/18/24 15:40 HX of N/V After Surgery No 12/18/24 15:40 Non-Smoker No 12/18/24 15:40 Duration of Surgery greater Yes 12/18/24 15:40 than 60 minutes Number of Risk Factors 1 12/18/24 15:40 PONV Score Low Risk 12/18/24 15:40 Height & Weight Height & Weight: Anesthesia: Height & Weight Height 6 ft 2 in 12/09/24 14:36 Respiratory Assessment Respiratory Assessment - optometric aide: Respiratory Tract Infection Hx - optometric aide Hx Respiratory Tract Infection No 12/18/24 15:40 STOP Sleep Apnea STOP Sleep Apnea - optometric aide: STOP Sleep Apnea - optometric aide Hx Hypertension Yes: CONTROLLED WITH MED FOR 12/18/24 15:40 MOST PART PER PATIENT/WHITE COAT SYNDROME Hx Sleep Apnea No 12/18/24 15:40 CPAP BIPAP Do you snore loudly (louder No 12/18/24 15:40 than talking or can be heard Do you often feel tired/ No 12/18/24 15:40 fatigued/ sleepy during daytime? Has anyone observed you stop No 12/18/24 15:40 breathing during sleep? STOP Results Negative 12/18/24 15:40 QUESTION #5 FULL TEXT : Do you snore loudly (louder than talking or can be heard through closed doors)? 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 Specify any problems Hx of Preganancy in last 3 N/A 12/18/24 15:40 Months Nurse Filling Out Transfusion DSCHRIBER 12/18/24 15:40 & Questions: Date: 12/18/24 12/18/24 15:40 Time: 15:43 12/18/24 15:40 Patient unable to answer at this time (ie. confused, unrespo /Reproduction History /Reproductive History - optometric aide: /Reproductive Hx- optometric aide Hx Now No 12/18/24 15:40 Gestational Age (in weeks): EDC: Hx Hx Para Hx Section SAB No 12/18/24 15:40 [facility] Medical History (Updated 12/18/24 @ 15:50 by Nikki Hood) Marijuana use Back pain Injury of back Migraine headache Injury of head and neck Blackout Gastric reflux Shortness of breath on exertion Leg cramps History of pain when walking Cholelithiasis History of alcohol abuse Allergic rhinitis Tachycardia Choledocholithiasis Obstructive jaundice Nasal polyps Hypertension Home Medications ?Medication ?Instructions ?Recorded ?Last Taken ?Type ascorbic acid (vitamin C) 500 mg 500 mg PO DAILY 12/09/24 12/10/24 History capsule cholecalciferol (vitamin D3) 125 125 mcg PO QDAY 12/09/24 Unknown History mcg (5,000 unit) capsule multivitamin 1 tab PO QAM 12/09/24 12/10/24 History omega 1-mwc-mvf-fish oil 300 1 cap PO QDAY 12/09/24 12/10/24 History mg-1,000 mg capsule (Fish Oil) amlodipine 5 mg tablet 10 mg PO DAILY 12/18/24 Unknown History Allergy/AdvReac Type Severity Reaction Status Date / Time lisinopril Allergy Severe FELT LIKE Verified 12/18/24 15:38 THROAT WAS SWELLING SHUT Sulfa (Sulfonamide Allergy Intermediate Anaphylaxis Verified 12/18/24 15:38 Antibiotics) morphine Allergy Mild Vomiting Verified 12/18/24 15:38 Penicillins AdvReac Intermediate Shortness Verified 12/18/24 15:38 of breath amoxicillin AdvReac Mild TWITCHING Verified 12/18/24 15:38 hydralazine AdvReac tingling Verified 12/18/24 15:38 to arms and pressure to chest Family History Mother Breast cancer age 66 with metastatic breast CA. Father CAD (coronary artery disease) First [place] age 35, age 52 secondary to cardiac event. Myocardial infarction First [place] age 35, age 52 secondary to cardiac event. Hypertension Heart disease Surgical History (Updated 12/18/24 @ 15:50 by Nikki Hood) S/P ERCP History of oral surgery Social History household members: other details: His 93 y/o aunt lives with him and he cares for her. Smoking Status: Current every day smoker tobacco type: cigarettes alcohol intake: former details: Sober x ~ 18 years (09/2024 evaluation) substance use type: marijuana Audit: Pertinent Findings Pertinent Findings EKG Perinent findings: September 28, 2024. Sinus tachycardia at 124 bpm. Left axis deviation. Septal infarct age undetermined. Inferior infarct age undetermined. Patient's heart rate is noted to be 90s to low 100 back to October 2023. Recommendation Anesthesia Recommendation Anesthesia recommendation: OPTIMIZED for anesthesia
[2024-12-31] VITALS (14 sets, daily range): BP systolic 133–168; BP diastolic 82–104; PULSE 90–114; RESP 16–18; TEMP 36.3–37.1; O2SAT 92–98; BMI 34.5
--- NOTE | 2024-12-31 09:47 | EKG12_ITS ---
Test Reason : P Blood Pressure : */* mmHG Vent. Rate : 107 BPM Atrial Rate : 107 BPM P-R Int : 156 ms QRS Dur : 100 ms QT Int : 348 ms P-R-T Axes : 60 -23 65 degrees QTcB Int : 464 ms Sinus tachycardia Otherwise normal ECG When compared with ECG of 28-Sep-2024 21:27, No significant change was found Confirmed by Jac Waller ([id number]), newspaper editor managing ROBERT BERNARD ([id number]) on 01/05/2025 10:48:24 AM Referred By: Yadi Palma Confirmed By: Jac Waller
--- NOTE | 2024-12-31 09:48 | PCM.HP.BLA ---
History and Physical Date of Admission: 12/31/24 Date of Service: 12/09/24 MR#: [id number] Acct: [id number] Name: KAREN CESAR Rep #: [id number] : 1970 Provider: Dr. Yadi Palma MD Age/Sex: 54/M Location: [facility] Status: Signed Intake Vital Signs 12/02/2514:13 12/09/2513:36 Height 6 ft 2 in 6 ft 2 in Weight: 273 lb 6 oz 270 lb BMI 35.1 34.7 BP 153/96 H 133/91 H Blood Pressure Location Rt brachial Position Sitting Respiration 16 16 Pulse 99 Pulse Oximetry (%) 96 Oxygen Delivery Method room air Intake Visit Reasons: GALLBLADDER Chief Complaint: gallbladder Mixing Picker Tender Required: No Is patient in pain?: No Allergies lisinopril Allergy (Severe, Verified 12/09/24 14:37) FELT LIKE THROAT WAS SWELLING SHUTSulfa (Sulfonamide Antibiotics) Allergy (Intermediate, Verified 12/09/24 14:37) Anaphylaxismorphine Allergy (Mild, Verified 12/09/24 14:37) VomitingPenicillins Adverse Reaction (Intermediate, Verified 12/09/24 14:37) Shortness of breathamoxicillin Adverse Reaction (Mild, Verified 12/09/24 14:37) TWITCHINGhydralazine Adverse Reaction (Verified 12/09/24 14:37) tingling to arms and pressure to chest Medications ?Medication ?Instructions ?Recorded ?Confirmed ?Type amlodipine 5 mg tablet 5 mg PO DAILY #30 tabs 05/27/24 12/02/24 Rx ascorbic acid (vitamin C) 500 mg mg PO 12/09/24 12/09/24 History capsule cholecalciferol (vitamin D3) 125 125 mcg PO QDAY 12/09/24 12/09/24 History mcg (5,000 unit) capsule multivitamin 1 tab PO QAM 12/09/24 12/09/24 History omega 5-yhp-nzz-fish oil 300 1 cap PO QDAY 12/09/24 12/09/24 History mg-1,000 mg capsule (Fish Oil) Have you fallen in the past year?: No PFSH Medical History (Updated 12/11/24 @ 10:[address] Yadi Palma MD) Cholelithiasis Tachycardia Choledocholithiasis Obstructive jaundice History of alcohol abuse Tobacco use Allergic rhinitis Nasal polyps Hypertension Surgical History (Updated 12/11/24 @ 10:[address] Yadi Palma MD) S/P ERCP History of oral surgery Family History Mother Breast cancer age 66 with metastatic breast CA.Father CAD (coronary artery disease) First [place] age 35, age 52 secondary to cardiac event. Myocardial infarction First [place] age 35, age 52 secondary to cardiac event. Hypertension Heart disease Social History household members: other details: His 93 y/o aunt lives with him and he cares for her. Smoking Status: Current every day smoker tobacco type: cigarettes alcohol intake: former details: Sober x ~ 18 years (09/2024 evaluation) substance use type: marijuana HPI HPI HPI: 54-year-old male presents due to gallstones status post ERCP with sphincterotomy and temporary stent for cholecystectomy. Patient only has minimal right upper quadrant pain which he states feels like a twinge. Patient initially came into the hospital with obstructive jaundice and had an ERCP which showed mid CBD stricture and no choledocholithiasis thus patient was worked up for possible PBC. However after follow-up with GI and reviewing lab test the workup for PBC is negative and it is thought that patient's stricture may be due to gallstones disease so patient was referred for cholecystectomy. Last check of patient's LFTs were normal. Patient did have a liver biopsy which showed chronic hepatitis, grade 2 in stage II, iron 4+. ROS General General: Yes weight change and fatigue; No appetite, colon cancer or breast cancer HEENT HEENT: No difficulty swallowing, eye injury, eye surgery, swollen glands or hoarseness Endo Endocrine: No thyroid disease, diabetes mellitus, thyroid cancer, Hair loss, heat intolerance or cold intolerance Skin Skin: No rash or changing moles Musc Musculoskeletal: Yes back problems; No arthritis, rheumatoid arthritis, gout or joint pain Cardio Cardiovascular: Yes high blood pressure; No murmur, pacemaker, heart disease, atrial fibrillation, heart attack, heart stent, palpitations, shortness of breat with exertion or chest pain Psych Psychiatric: No depression, anxiety or hearing voices Resp Respiratory: Yes shortness of breath, No sleep apnea, No cough, No COPD, No asthma, No emphysema and No wheezing Gastro Gastrointestinal: Yes abdominal pain, No nausea or vomiting, Yes diarrhea, No constipation, No blood in stool, Yes acid reflux, No hemorrhoids, No ulcers, Yes gallbladder problem and No black,tarry stools Hematologic: No blood thinners, No blood disorders, No bleeding, No anemia and No blood clots Neuro Neurologic: Yes numbness and Yes tingling Exam Const General: cooperative, healthy appearing, comfortable and no acute distress [facility] Head: normocephalic and atraumatic Neck Neck: supple Resp Effort & Inspection: normal respiratory effort Cardio Rate: regular rate GI Inspection: non-distended Palpation: soft and nontender Skin General: no rashes or lesions noted Neuro General: CN's II-XI intact bilaterally Extrem General: normal to inspection Psych Mental Status: mental status grossly normal Attitude: cooperative Assessment and Plan Assessment and Plan (1) S/P ERCP: Status: Acute (2) Gallstones: Status: Acute (3) Elevated liver enzymes: Status: Resolved Plan Discussed with patient would have GI further review and go over the liver biopsy with him as that is not my area of expertise. Discussed that would plan to remove the gallbladder at hopefully remove any future issues with choledocholithiasis or hopefully strictures. Also check with GI to see if they are able to remove his temporary stent from ERCP at the same time. Reviewed the anatomy with the patient and discussed the procedure: laparoscopic cholecystectomy with possible cholangiograms, possible open. Review risks including but not limited to bleeding, infection, hernia, bile leak, retained gallstones requiring another procedure ERCP- Endoscopic Retrograde Cholangiopancreatography, injury to another organ (bile ducts, common bile duct, small bowel, etc.) and conversion to an open procedure. All questions were answered. Yadi Palma M.D. Pager: [phone] [facility] [address] [place] [address], [facility], [address] [place] [address] Office: [phone] Coding Level of Care Code Off vis,est,level 3 Diagnoses S/P ERCP Z98.890 Gallstones K80.20 Elevated liver enzymes R74.8 Clinical Quality Measures Falls Risk Screening/Assistive Devices Have you fallen in the past year?: No 12/11/24 1029 <Electronically signed by Yadi Palma MD> Date Yadi Palma MD
--- NOTE | 2024-12-31 10:48 | PCM.HP.STD ---
HPI - General General Date of Admission: 12/31/24 Date of Service: 12/31/24 Chief Complaint: stent removal HPI Narrative KAREN CESAR, is a 54 M who presents for ERCP with stent removal. He originally presented with right upper quadrant pain and discovered to have cholecystitis and choledocholithiasis. He underwent ERCP with sphincterotomy and temporary stent for cholecystectomy. Patient only has minimal right upper quadrant pain which he states feels like a twinge. Patient initially came into the hospital with obstructive jaundice and had an ERCP which showed mid CBD stricture and no choledocholithiasis thus patient was worked up for possible PBC. However after follow-up and reviewing lab test the workup for PBC is negative and it is thought that patient's stricture may be due to gallstones disease so patient was referred for cholecystectomy. Last check of patient's LFTs were normal. Patient did have a liver biopsy which showed chronic hepatitis, grade 2 in stage II, iron 4+. [facility] Medical History Marijuana use Back pain Injury of back Migraine headache Injury of head and neck Blackout Gastric reflux Shortness of breath on exertion Leg cramps History of pain when walking Cholelithiasis History of alcohol abuse Allergic rhinitis Tachycardia Choledocholithiasis Obstructive jaundice Nasal polyps Hypertension Home Medications ?Medication ?Instructions ?Recorded ?Last Taken ?Type ascorbic acid (vitamin C) 500 mg 500 mg PO DAILY 12/09/24 12/10/24 History capsule cholecalciferol (vitamin D3) 125 125 mcg PO QDAY 12/09/24 Unknown History mcg (5,000 unit) capsule multivitamin 1 tab PO QAM 12/09/24 12/10/24 History omega 6-abn-kzd-fish oil 300 1 cap PO QDAY 12/09/24 12/10/24 History mg-1,000 mg capsule (Fish Oil) amlodipine 5 mg tablet 10 mg PO DAILY 12/18/24 12/31/24 08:20 History Allergy/AdvReac Type Severity Reaction Status Date / Time lisinopril Allergy Severe FELT LIKE Verified 12/31/24 09:50 THROAT WAS SWELLING SHUT Sulfa (Sulfonamide Allergy Intermediate Anaphylaxis Verified 12/31/24 09:50 Antibiotics) morphine Allergy Mild Vomiting Verified 12/31/24 09:50 Penicillins AdvReac Intermediate Shortness Verified 12/31/24 09:50 of breath amoxicillin AdvReac Mild TWITCHING Verified 12/31/24 09:50 hydralazine AdvReac tingling Verified 12/31/24 09:50 to arms and pressure to chest Family History Mother Breast cancer age 66 with metastatic breast CA. Father CAD (coronary artery disease) First [place] age 35, age 52 secondary to cardiac event. Myocardial infarction First [place] age 35, age 52 secondary to cardiac event. Hypertension Heart disease Surgical History S/P ERCP History of oral surgery Social History household members: other details: His 93 y/o aunt lives with him and he cares for her. Smoking Status: Current every day smoker tobacco type: cigarettes alcohol intake: former details: Sober x ~ 18 years (09/2024 evaluation) substance use type: marijuana ROS Constitutional Constitutional: Denies fatigue, fever(s), poor appetite, weight gain or weight loss Gastrointestinal Gastrointestinal: Denies belching, bloating, change in bowel habits, change in stool character, chewing difficulty, coffee ground emesis, constipation, cramping, diarrhea, dyspepsia, dysphagia, early satiety, excessive flatus, fecal incontinence, heartburn, hematemesis, hematochezia, hemorrhoids, loose stools, melena, nausea, odynophagia, rectal bleeding, tenesmus, vomiting or weight changes Vital Signs Vital Signs Vital Signs: 12/31/24 09:53 12/31/24 09:53 Temperature 98.1 F Temperature Source Temporal Pulse Rate 99 Respiratory Rate 16 Respiratory Pattern Normal Blood Pressure 159/97 H Blood Pressure Mean 117 Blood Pressure Source Monitor Blood Pressure Position Semi-Fowlers Blood Pressure Location Right Arm Pulse Ox 97 Oxygen Delivery Method Room Air Weight Weight: 268 lb 15.423 oz Body Mass Index (BMI) 34.5 Physical Exam Const alert, oriented x3, no apparent distress and healthy appearing General Appearance: cooperative GI normal to inspection, nondistended, normoactive bowel sounds, soft to palpation, non-tender and non-distended Percussion: normal to percussion Rectal Exam: deferred Assessment & Plan Assessment/Plan (1) S/P ERCP: (2) Gallstones and inflammation of gallbladder with obstruction: (3) Elevated liver enzymes: PLAN: Patient will undergo ERCP with stent removal. He was explained alternatives, risk, benefits include not withstanding bleeding, infection, sepsis, perforation, need for emergent urgent . He will have an ASA of 3.
--- NOTE | 2024-12-31 11:00 | GALL_PTH ---
PATIENT: KAREN CESAR LOC: [facility]3 U#:[id number] AGE/SX: 54/M ROOM: FL316 RE12/31/[address]: Dr. Yadi Palma MD : 1970 BED: 1 DIS: 01/01/2025 SPEC #: [id number] RECD: 12/31/24 13:57 STATUS: BRYANT WILBERT #: [id number] MARCELINO: 12/31/24 11:[address]: Yadi Palma DEPT: SURGICAL PATHOLOGY RECD BY: Erika Byrnes ENTERED: 12/31/24 14:22 SP TYPE: GUS CALLE DR: Dr. Mitch Rendon, DO Greer Patel, [facility], REGIONAL DIRECTOR-C Tissues: Gallbladder, NOS Procedures: Surgery Specimen Level III HEADER OPERATION: Laparoscopic cholecystectomy with IOC/ ERCP in OR PRE-OP DIAGNOSIS: Status post ERCP, gallstones and inflammation of gallbladder with obstruction, elevated liver enzymes TISSUE SUBMITTED: Gallbladder MICROSCOPIC DIAGNOSIS Gallbladder, cholecystectomy: Acute and chronic hemorrhagic and ulcerated cholecystitis. A benign lymph node with extensive hemorrhage. See comment. 01/01/2025 COMMENT No stones are identified in the gallbladder or in the container. MICROSCOPIC DESCRIPTION Slides are reviewed. GROSS DESCRIPTION Received is one container labeled with the patient's name and designated gallbladder. The specimen consists of a previously opened portion of gallbladder measuring 4 cm in length and up to 1.5 cm in diameter. The gross is reviewed along with surgeon Dr. Palma. No obvious cystic duct is identified. The external surface is pink-marte, smooth and glistening for the most part. Focally it is granular, hemorrhagic and contains cautery artifact. The section of the fundus area reveals focally hemorrhagic cut surfaces. Bile is not present. No stones are identified in the container or in the gallbladder. A hemorrhagic nodule is noted, in the proximal portion of gallbladder adjacent to plastic clip, a possible lymph node measuring 0.3cm in greatest dimension. The mucosa is congested and hemorrhagic. The gallbladder wall measures up to 0.4 cm in thickness. The entire specimen is submitted in three cassettes. Cassette 1 contains the fundus portion of the gallbladder and cassette 3 contains the most proximal portion of the gallbladder including the hemorrhagic nodule. / JOAN: 12/31/2024 TC:2 CPT: 44675
--- NOTE | 2024-12-31 11:24 | PRE.ANES_ITS ---
ASA Classification* ASA Classification ASA Classification: 2 Assessment & Plan Anesthesia* Anesthesia Assessment Anesthesia Assessment: Discussed sedation and/or anesthesia options, risks, benefits, and alternatives with patient/parents/legal guardian/POA. Questions invited. The patient/parents/legal guardian/POA seems to understand and agrees to proceed with anesthesia plan. Reviewed the physical assessment, medical history, allergy history and patient home medications list prior to surgery/procedure/anesthetic and documented any changes. Performed airway and anesthesia risk assessments. Anesthesia Type Anesthesia Type: General (Consider GlideScope.) History Source History Obtained from:: Patient and Chart Anesthesia Focused Assessment* Temperature: 98.1 F Pulse Rate: 99 Blood Pressure: 159/97 Respiratory Rate: 16 Pulse Ox: 97 Oxygen Delivery Method: Room Air Airway Assessment Mouth opens: >3 cm Mallampati Score: IV Teeth Condition: Intact Neck Range of motion (ROM): Full ROM Focused Labs Anesthesia Preop lab: CBC WBC 11.6 K/mm3 (4.4-11.0) H 12/02/24 16:12 5 RBC 5.54 M/mm3 (4.6-6.2) 12/02/24 16:12 12/02/24 Hgb 17.2 g/dL (13.0-16.5) H 12/02/24 16:12 5 Hct 50.5 % (40-54) 12/02/24 16:12 12/02/24 Plt Count 439 K/mm3 (150-450) 12/02/24 16:12 12/02/24 CHEMISTRY Potassium 3.9 mmol/L (3.5-5.1) 12/02/24 16:12 12/02/24 Sodium 140 mmol/L (136-145) 12/02/24 16:12 12/02/24 BUN 7 mg/dL (7-18) 12/02/24 16:12 12/02/24 Creatinine 1.00 mg/dL (0.70-1.30) 12/02/24 16:12 12/02/24 Glucose 109 mg/dL (74-106) H 12/02/24 16:12 12/02/24 COAG PT 13.4 SECONDS (11.7-14.9) 09/28/24 21:40 Pre-Assessment Diagnosis/Proposed Procedure Planned Operative Procedure(s): LAP CHOLEY WITH GRAMS ERCP WITH DR AGUILERA Anesthesia History 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 When Was Last Pacemaker Check QUESTION #4 FULL TEXT: You/Your Family Experience fever (hyperthermia) with Anesthesia Last Oral Intake Last Oral intake: Last Oral Intake NPO since 10:06 12/31/24 09:53 Meds taken in AM with sips of water? Meds patient instructed to take am of surgery Any additional information?: Yes NPO since: 00:00 Meds taken in AM with sips of water?: Yes PONV PONV - water control station engineer: PONV - water control station engineer Female No 12/18/24 15:40 HX of Motion Sickness No 12/18/24 15:40 HX of N/V After Surgery No 12/18/24 15:40 Non-Smoker No 12/18/24 15:40 Duration of Surgery greater Yes 12/18/24 15:40 than 60 minutes Number of Risk Factors 1 12/18/24 15:40 PONV Score Low Risk 12/18/24 15:40 Height & Weight Height & Weight: Anesthesia: Height & Weight Height 6 ft 2 in 12/31/24 09:53 Weight: 122 kg 12/31/24 09:53 Body Mass Index (BMI) 34.5 12/31/24 09:53 Respiratory Assessment Respiratory Assessment - water control station engineer: Respiratory Tract Infection Hx - water control station engineer Hx Respiratory Tract Infection No 12/18/24 15:40 Any additional information?: Yes Hx Respiratory Tract Infection: Yes (Chronic smoker's cough. No recent infections.) STOP Sleep Apnea STOP Sleep Apnea - water control station engineer: STOP Sleep Apnea - water control station engineer Hx Hypertension Yes: CONTROLLED WITH MED FOR 12/18/24 15:40 MOST PART PER PATIENT/WHITE COAT SYNDROME Hx Sleep Apnea No 12/18/24 15:40 CPAP BIPAP Do you snore loudly (louder No 12/18/24 15:40 than talking or can be heard Do you often feel tired/ No 12/18/24 15:40 fatigued/ sleepy during daytime? Has anyone observed you stop No 12/18/24 15:40 breathing during sleep? STOP Results Negative 12/18/24 15:40 QUESTION #5 FULL TEXT : Do you snore loudly (louder than talking or can be heard through closed doors)? Tobacco Use History Tobacco Use History - water control station engineer: Tobacco Use History - water control station engineer Tobacco Use Smoking Status Current every day smoker 12/18/24 15:40 Hx Tobacco Use Yes 12/18/24 15:40 Years Smoking Packs Smoked per Day Smoking Cessation Date was within the last 15 years Hx Smoking Cessation Date Hx Smoking Cessation Counseling Any additional information?: Yes Smoking Status: Current every day smoker (Patient smoked today.) Hematologic Medial History Hematologic Hx - water control station engineer: Hematologic Medical Hx - waist presser Hx of Blood Transfusion No 12/18/24 15:40 Hx of Transfusion in last 3 No 12/18/24 15:40 Months Date of Last Transfusion (if within last 3 months) Ever experience any problems No 12/18/24 15:40 with transfusion(s)? Specify any problems Hx of Preganancy in last 3 N/A 12/18/24 15:40 Months Nurse Filling Out Transfusion DSCHRIBER 12/18/24 15:40 & Questions: Date: 12/18/24 12/18/24 15:40 Time: 15:43 12/18/24 15:40 Patient unable to answer at this time (ie. confused, unrespo /Reproduction History /Reproductive History - water control station engineer: /Reproductive Hx- water control station engineer Hx Now No 12/18/24 15:40 Gestational Age (in weeks): EDC: Hx Hx Para Hx Section SAB No 12/18/24 15:40 Active Medications Active Medications: Current Medications Generic Name Dose Route Start Last Admin Trade Name Freq PRN Reason Stop Dose Admin Clindamycin Phosphate 900 mg in 50 mls @ 75 mls/hr 12/31/24 11:00 Cleocin IV 12/31/24 11:39 PREOP ONE Sodium Chloride 1,000 mls @ 15 mls/hr 12/31/24 10:20 IV 01/05/25 23:39 .Q48H [facility] Protocol PFSH Medical History Marijuana use Back pain Injury of back Migraine headache Injury of head and neck Blackout Gastric reflux Shortness of breath on exertion Leg cramps History of pain when walking Cholelithiasis History of alcohol abuse Allergic rhinitis Tachycardia Choledocholithiasis Obstructive jaundice Nasal polyps Hypertension Home Medications ?Medication ?Instructions ?Recorded ?Last Taken ?Type ascorbic acid (vitamin C) 500 mg 500 mg PO DAILY 12/0912/10/24 History capsule cholecalciferol (vitamin D3) 125 125 mcg PO QDAY 12/09 Unknown History mcg (5,000 unit) capsule multivitamin 1 tab PO QAM 12/09/24 History omega 2-dej-huw-fish oil 300 1 cap PO QDAY 12/09/24 History mg-1,000 mg capsule (Fish Oil) amlodipine 5 mg tablet 10 mg PO DAILY 12/18/2412/13 08:20 History Allergy/AdvReac Type Severity Reaction Status Date / Time lisinopril Allergy Severe FELT LIKE Verified 12/31/24 09:50 THROAT WAS SWELLING SHUT Sulfa (Sulfonamide Allergy Intermediate Anaphylaxis Verified 12/31/24 09:50 Antibiotics) morphine Allergy Mild Vomiting Verified 12/31/24 09:50 Penicillins AdvReac Intermediate Shortness Verified 12/31/24 09:50 of breath amoxicillin AdvReac Mild TWITCHING Verified 12/31/24 09:50 hydralazine AdvReac tingling Verified 12/31/24 09:50 to arms and pressure to chest Family History Mother Breast cancer age 66 with metastatic breast CA. Father CAD (coronary artery disease) First [place] age 35, age 52 secondary to cardiac event. Myocardial infarction First [place] age 35, age 52 secondary to cardiac event. Hypertension Heart disease Surgical History S/P ERCP History of oral surgery Social History household members: other details: His 93 y/o aunt lives with him and he cares for her. Smoking Status: Current every day smoker tobacco type: cigarettes alcohol intake: former details: Sober x ~ 18 years (09/2024 evaluation) substance use type: marijuana Review of Systems (Anesthesia) ROS Narrative System reviewed and no additional complaints, except as documented.
[2024-12-31] MEDS: Clindamycin 900 MG/50 ML BAG 75 MG IV (12:00)
[2024-12-31] MEDS: Bupivacaine Mpf 0.5% 30 ML VIAL (12:37)
--- NOTE | 2024-12-31 13:41 | OP.PCM_ITS ---
Operative Report (Standard) Operative Information Date of Procedure: 12/31/24 Pre-Operative Diagnosis: Cholelithiasis, choledocholithiasis status post ERCP with H/O a CBD stricture, right upper quadrant pain Post-Operative Diagnosis: Thickened gallbladder wall, choledocholithiasis status post ERCP with history of CBD stricture, right upper quadrant pain Surgery/Procedure Performed: Laparoscopic cholecystectomy cotton seed culler: Yes Bar Helper: Radha Womack Tasks completed by therapeutic recreation assistant: Opening & closing and Retracting Type of Anesthesia: General/Supplemental RN Documented Start/Stop Times: Operation Date: 12/31/24 12:45 Case Time Into Pre-Op 12/31/24 09:52 Out of Pre-Op 12/31/24 13:25 Procedure Start Time: 12:13 Procedure Stop Time: 13:48 Select all DRAINS/GRAFTS/IMPLANTS that apply: Drains Drain details: 15 Nigerian round ANUPAMA Special Medications: Clindamycin 900 mg IV x 1 Estimated Blood Loss: 20 cc Specimen collected: Yes Description of specimen(s) removed: Gallbladder Description of surgery: Indications: this is a 54 year-old male who developed abdominal pain/nausea/vomiting and on workup was found to have choledocholithiasis status post ERCP with history of CBD stricture however workup for PBC was negative thus recommended for cholecystectomy. Laparoscopic cholecystectomy was elected. Description procedure: The patient was placed on operating table in supine position. A timeout was completed verifying correct patient, procedure, site, position and special equipment prior to beginning procedure. General Anesthesia was induced. The abdomen was prepped and draped in usual sterile fashion. An incision was made in the natural skin line above the umbilicus. The fascia was elevated and incised. The peritoneum was elevated and incised. Entry into the peritoneum was confirmed visually and no bowel was noted in the vicinity of the incision. Peoples trocar was placed. The abdomen was insufflated with carbon dioxide to a pressure of 12-15 mmHg. Patient tolerated insufflation well. The laparoscope was then inserted and abdomen inspected. No injuries from initial trocar placement were noted. Additional trochars were then inserted in the following locations 5 mm trocar in the epigastrium and 2 more 5 mm trochars along the right costal margin. The abdomen was inspected no abnormalities were found?the gallbladder was noted to be small and contracted. The table is placed in reverse Trendelenburg position with the right side up. Adhesions between the gallbladder and omentum were taken down carefully. The dome of the gallbladder was grasped with atraumatic grasper passed through the lateral port and retracted over the dome of the liver. Infundibulum was then grasped with atraumatic grasper through the midclavicular port and retracted to the right lower quadrant. Due to dense adhesions dome down technique was used. Able to identify cystic artery and clipped unable to definitively identify cystic duct thus the gallbladder was opened through the thick gallbladder wall, no obvious gallstones were seen. No bile was seen. 15 Nigerian round ANUPAMA was placed in the right upper quadrant. The peritoneum overlying the gallbladder infundibulum was then incised and cystic artery identified and circumferentially dissected. The cystic artery was then doubly clipped and divided close to the gallbladder. The gallbladder then dissected from its peritoneal attachments by electrocautery. Hemostasis was checked and the gallbladder was removed using th e endoscopic retrieval bag through the umbilical port. The gallbladder is passed off table as specimen. The gallbladder fossa was irrigated with saline and hemostasis obtained. There is no evidence of bleeding from the gallbladder fossa or cystic artery leakage of bile from gallbladder stump.15 Fr round ANUPAMA placed in RUQ secured with 3-0 nylon. Secondary trochars removed under direct vision. No bleeding was noted the trocar sites. The laparoscope was withdrawn and umbilical trocar removed. The abdomen was allowed to collapse. The fascia of the 12 mm trocar was closed with a [id number] 0 Vicryl suture. The skin was closed with sutures of 4-0 Monocryl and Steri-Strips. The patient was extubated. The patient tolerated procedure well and was taken to the postanesthesia care unit in stable condition. Surgical Findings: Gallbladder was small, contracted firm no obvious gallstones when opening gallbladder Complications Complications: No
--- NOTE | 2024-12-31 14:06 | EX.PCM.DISCH ---
Discharge Instructions Diet Discharge Diet: Light diet - advance as tolerated Activity Discharge Activity: May Not Drive (while taking narcotic pain medications.) May shower in (days): 1 Lifting Restrictions: no lifting >20 lbs x 2 wks, no strenuous exercise for 4 wks Dressing / Incision Call your doctor if your incision/area has: Continuous Slow Oozing, Sudden Increased Bleeding, Increased Pain/ Swelling, Increased Redness, Foul Smelling Discharge and Swelling at the incision site Call your doctor if you observe: Fever of 101 or Higher Remove Dressing in: 2 days Cleanse incision/area with: Soap & Water Additional Dressing/Incision Instructions:: Steri-Strips will fall off in 7 to 10 days, if they do not fall off okay to remove after 10 days. Follow Up Care Please Follow Up With: Yadi Palma MD When: Call the office for a follow-up 1-2 weeks ; after 5 PM and on the weekends call [phone] with any concerns. Test Results: Test results from this visit will be discussed in further detail at your follow-up appointment, if applicable. Discharge Plan Admission Admit Date/Time: 12/31/24 15:24 Primary Reason for Your Visit: RAISSA PEREZ Attending Provider: Yadi Palma Primary Care Provider: Greer Patel [facility] Consulting Providers: Mitch Rendon Instructions Additional Instructions / Restrictions: Cholecystectomy Diet ? Start light with soups and soft bland foods. You may advance diet as tolerated. Activity ? You may drive in 3-5 days but not while taking narcotic pain medication. ? I encourage walking. You may go up steps, one at a time. ? Do not swim or use hot tubs for 2 weeks. ? For comfort, you may use warm compresses or ice as needed for 15-20 minutes at a time. Lifting ? You may lift up to 20 pounds for 2 weeks. No strenuous activities for 4 weeks. Dressings/Incision ? You may shower OVER your plastic dressings ? Do NOT tub bathe for 1 week ? Leave plastic dressings on for 2 days. ? When plastic dressings are removed, you will find steri strips. It is okay to continue showering with them in place, pat them dry. ? You may remove steri-strips after 7-10 days. We recommend getting them soaking wet for easier removal. Medications ? Anesthesia used during surgery and pain medications may cause constipation. I recommend initiating on the day of surgery a fiber supplement like, Metamucil, Citrucel, FiberCon, Benefiber, or a generic form of these medications. 1 heaping tablespoon in water daily. You may continue to utilize any bowel regimen or oral laxatives that you routinely take. ? As long as you are not intolerant to Tylenol, acetaminophen, ibuprofen, Motrin, Advil, Aleve, or similar medications, I would recommend transitioning to these [id number] medicines as soon as possible instead of continued use of narcotic pain medication. Follow up ? You should call [facility] soon after surgery, at [phone] option 2 to make a follow up appointment for 14 days after your surgery. Discharge Orders/Prescriptions Prescriptions: New oxycodone 5 mg capsule 5 - 10 mg PO Q6H PRN (Reason: pain) 3 Days Qty: 14 0RF Continued multivitamin Tablet 1 tab PO QAM cholecalciferol (vitamin D3) 125 mcg (5,000 unit) capsule 125 mcg PO QDAY omega 0-nhv-ful-fish oil [Fish Oil] 300-1,000 mg capsule 1 cap PO QDAY ascorbic acid (vitamin C) 500 mg capsule 500 mg PO DAILY amlodipine 5 mg tablet 10 mg PO DAILY Referrals / Follow Up: Greer Patel, SOLUTION DESIGN ENGINEER-C [Primary Care Provider] - Disposition Disposition (needs filled in before D/C Order can be placed): Home, Self Care
--- NOTE | 2024-12-31 14:18 | PCM.POST.ANE ---
Anesthesia: Postop Eval I Current Vital Signs Temperature: 98.1 F Pulse Rate: 112 Blood Pressure: 154/101 Respiratory Rate: 16 Pulse Ox: 97 Oxygen Delivery Method: Room Air Assessment Airway patent: Yes Spontaneous unlabored respirations: Yes Mental status: Awake and Calm nausea: No Vomiting: No Anesthesia Complication: No Fluid Hydration Crystalloid volume administer (ml): 1,600 Total IV fluid infused: 1,600 Progress Note Anesthesia document: Postop Eval 1 completed: Yes
--- NOTE | 2024-12-31 17:00 | POSTOPAN2_ITS ---
Anesthesia Postop Eval I Sum Postop Eval Completion status Anesthesia document: Postop Eval 1 completed: Yes Anesthesia Postop Eval I Summary Anesthesia Postop Eval I Summary: Anesthesia Postop Eval I: Assessment Summary Airway patent Yes 12/31/24 14:19 IRRIGATOR GRAVITY [email or web address] Spontaneous unlabored Yes 12/31/24 14:19 IRRIGATOR GRAVITY [email or web address] respirations Mental status Awake,Calm 12/31/24 14:19 IRRIGATOR GRAVITY [email or web address] nausea No 12/31/24 14:19 IRRIGATOR GRAVITY [email or web address].[email or web address] Vomiting No 12/31/24 14:19 IRRIGATOR [email or web address] [email or web address] Anesthesia Postop Eval I: Fluid Summary Crystalloid volume administer 1,600 12/31/24 14:19 IRRIGATOR GRAVITY [email or web address] (ml) Colloids volume administered ( ml) Blood Product volume administered (ml) Total IV fluid infused 1,600 12/31/24 14:19 IRRIGATOR [email or web address] [email or web address] Anesthesia Postop Eval I: Summary Notes Anesthesia Complication No 12/31/24 14:19 IRRIGATOR [email or web address] [email or web address] Anesthesia Complication Comment: Post-operative progress note Anesthesia: Postop Eval II Evaluation Mental status: Awake Pain Level: 2 nausea: No Vomiting: No
--- NOTE | 2024-12-31 17:00 | PCM.POSTANE2 ---
Anesthesia Postop Eval I Sum Postop Eval Completion status Anesthesia document: Postop Eval 1 completed: Yes Anesthesia Postop Eval I Summary Anesthesia Postop Eval I Summary: Anesthesia Postop Eval I: Assessment Summary Airway patent Yes 12/31/24 14:19 PHARMACY [email or web address] Spontaneous unlabored Yes 12/31/24 14:19 PHARMACY [email or web address] respirations Mental status Awake,Calm 12/31/24 14:19 PHARMACY [email or web address] nausea No 12/31/24 14:19 PHARMACY [email or web address].[email or web address] Vomiting No 12/31/24 14:19 PHARMACY [email or web address] Anesthesia Postop Eval I: Fluid Summary Crystalloid volume administer 1,600 12/31/24 14:19 PHARMACY [email or web address].GDOTT (ml) Colloids volume administered ( ml) Blood Product volume administered (ml) Total IV fluid infused 1,600 12/31/24 14:19 PHARMACY [email or web address] Anesthesia Postop Eval I: Summary Notes Anesthesia Complication No 12/31/24 14:19 PHARMACY [email or web address] Anesthesia Complication Comment: Post-operative progress note Anesthesia: Postop Eval II Evaluation Mental status: Awake Pain Level: 2 nausea: No Vomiting: No
[2024-12-31] MEDS: HYDROmorphone 0.5 MG/0.5 ML SYRINGE IV (18:05)
[2024-12-31] MEDS: 0.9% Saline Lock 10 ML Syringe IV (18:05)
[2024-12-31] MEDS: Ketorolac 15 MG/ML Vial IV (23:57)
[2025-01-01 04:12] VITALS: BP 140/87; PULSE 79; RESP 16; TEMP 36.6; O2SAT 98
[2025-01-01 06:30] LABS: Absolute Neutrophil Count 13.8 X10^3/uL (2.0-7.7); Basophil# 0.02 X10^3/uL; Basophil% 0.1 % (0-1); Hematocrit 48.9 % (40-54); Hemoglobin 16.5 g/dL (13.0-16.5); Lymphocyte % 6.3 % (19-41); Mean Corp Hgb Conc 33.7 g/dL (32-36); Mean Corpuscular Hgb 30.8 pg (27.0-32.0); Mean Corpuscular Volume 91.2 fL (80-94); Mean Platelet Vol. 9.8 fl (6.2-12.0); Monocyte# 1.15 X10^3/uL; Monocyte% 7.2 % (0-10); NRBC Flagged by Analyzer 0 % (0-5); Neutrophil # 13.75 X10^3/uL (2.7-7.7); Platelet Count 261 K/mm3 (150-450); RBC Distribution Width CV 12.9 % (11.6-14.6); RBC Distribution Width SD 43.4 fl (35.1-43.9); Red Blood Count 5.36 M/mm3 (4.6-6.2)
[2025-01-01 06:53] LABS: AST(SGOT) 23 U/L (15-37); Alanine Aminotransfer ALT/SGPT 48 U/L (16-61); Albumin, Serum 3.5 g/dL (3.2-5.0); Alkaline Phosphatase 66 U/L (45-117); Anion Gap 6 (5-15); BUN 13 mg/dL (7-18); BUN/Creat Ratio 12.9 RATIO (10-20); Bilirubin, Direct 0.17 mg/dL (0.00-0.30); Chloride 105 mmol/L (98-107); Creatinine, Serum 1.01 mg/dL (0.70-1.30); EST Glomerular Filtration Rate 82 mL/min (>60); Est Glom Filt Rate - Afr Amer 100 mL/min (>60); Estimated Creatinine Clearance 118.74 ml/min; Globulin 3.6 g/dL (2.2-4.2); Glucose 114 mg/dL (74-106); Potassium 3.7 mmol/L (3.5-5.1); Protein, Total 7.1 g/dL (6.4-8.2); Sodium Level 138 mmol/L (136-145)
[2025-01-01 08:46] VITALS: BP 149/109; PULSE 91; RESP 16; TEMP 36.8; O2SAT 97
[2025-01-01] MEDS: amLODIPine 10 MG Tablet PO (08:55)
--- NOTE | 2025-01-01 11:24 | DCINST_ITS ---
Discharge Instructions Diet Discharge Diet: Light diet - advance as tolerated DC O2, CPAP, BIPAP needs Home O2 Discharge instructions: No Dressing / Incision May shower in (days): 2 Lifting Restrictions: 20 pounds for 2 weeks. No strenuous activity for 4 weeks Dressing / Incision Call your doctor if your incision/area has: Continuous Slow Oozing, Sudden Increased Bleeding, Increased Pain/ Swelling, Increased Redness, Foul Smelling Discharge and Swelling at the incision site Call your doctor if you observe: Fever of 101 or Higher Suture Line Care: Avoid Pulling/Pushing and Avoid Pinching/Bending Remove Dressing in: 2 days Cleanse incision/area with: Soap & Water Additional Dressing/Incision Instructions:: Steri-Strips will fall off in 7 to 10 days, if they do not fall off okay to remove after 10 days. Follow Up Care Please Follow Up With: Yadi Palma MD When: Contact our office at [phone], option #2 to schedule a follow-up appointment in 14 days Test Results: Test results from this visit will be discussed in further detail at your follow- up appointment, if applicable. Discharge Plan Admission Admit Date/Time: 12/31/24 15:24 Primary Reason for Your Visit: RAISSA HOLLAND Attending Provider: Yadi Palma Primary Care Provider: Greer Patel [facility] Consulting Providers: Mitch Rendon Instructions Additional Instructions / Restrictions: Cholecystectomy Diet ? Start light with soups and soft bland foods. You may advance diet as tolerated. Activity ? You may drive in 3-5 days but not while taking narcotic pain medication. ? I encourage walking. You may go up steps, one at a time. ? Do not swim or use hot tubs for 2 weeks. ? For comfort, you may use warm compresses or ice as needed for 15-20 minutes at a time. Lifting ? You may lift up to 20 pounds for 2 weeks. No strenuous activities for 4 weeks. Dressings/Incision ? You may shower OVER your plastic dressings ? Do NOT tub bathe for 1 week ? Leave plastic dressings on for 2 days. ? When plastic dressings are removed, you will find steri strips. It is okay to continue showering with them in place, pat them dry. ? You may remove steri-strips after 7-10 days. We recommend getting them soaking wet for easier removal. Medications ? Anesthesia used during surgery and pain medications may cause constipation. I recommend initiating on the day of surgery a fiber supplement like, Metamucil, Citrucel, FiberCon, Benefiber, or a generic form of these medications. 1 heaping tablespoon in water daily. You may continue to utilize any bowel regimen or oral laxatives that you routinely take. ? As long as you are not intolerant to Tylenol, acetaminophen, ibuprofen, Motrin, Advil, Aleve, or similar medications, I would recommend transitioning to these [id number] medicines as soon as possible instead of continued use of narcotic pain medication. Follow up ? You should call [facility] soon after surgery, at [phone] option 2 to make a follow up appointment for 14 days after your surgery. Discharge Orders/Prescriptions Prescriptions: New oxycodone 5 mg capsule 5 - 10 mg PO Q6H PRN (Reason: pain) 3 Days Qty: 14 0RF Continued multivitamin Tablet 1 tab PO QAM cholecalciferol (vitamin D3) 125 mcg (5,000 unit) capsule 125 mcg PO QDAY omega 6-xqu-zqo-fish oil [Fish Oil] 300-1,000 mg capsule 1 cap PO QDAY ascorbic acid (vitamin C) 500 mg capsule 500 mg PO DAILY amlodipine 5 mg tablet 10 mg PO DAILY Referrals / Follow Up: Greer Patel, LICENSED PRACTICAL NURSE CLINIC NURSE-C [Primary Care Provider] - Disposition Disposition (needs filled in before D/C Order can be placed): Home, Self Care
--- NOTE | 2025-01-01 11:30 | PCM.PN.SRG ---
Subjective Subjective Patient evaluated resting comfortably in bed. He denies any nausea, vomiting. He noted discomfort at the drain site. He feels ready to be discarged to home. He notes he did not sleep well last night. Objective Data Objective Data Vital Signs: Vital Signs Temp Pulse Resp BP Pulse Ox O2 Del Method O2 Flow Rate 98.3 F 91 16 149/109 H 97 Room Air 2 01/01/25 08:46 01/01/25 08:46 01/01/25 08:46 01/01/25 08:46 01/01/25 08:46 01/01/25 04:12 12/31/24 15:30 Oxygen Flow Rate (L/min) 2 Oxygen Delivery Method Room Air Weight: 268 lb 15.423 oz Body Mass Index (BMI) 34.5 Intake & Output: Intake and Output for Last 24 Hours 12/30/24 12/31/24 01/01/25 23:59 23:59 23:59 Intake Total 800 / 1300 700 / 700 Output Total 75 / 75 Balance 725 / 1225 700 / 700 Lab / Micro Data 01/01/25 05:43 01/01/25 05:43 Labs: Laboratory Results - last 24 hr 01/01/25 05:43: WBC 16.0 H, RBC 5.36, Hgb 16.5, Hct 48.9, MCV 91.2, MCH 30.8, MCHC 33.7, RDW Std Deviation 43.4, RDW Coeff of Nahomy 12.9, Plt Count 261, MPV 9.8, Immature Gran % (Auto) 0.400, Neut % (Auto) 86.0 H, Lymph % (Auto) 6.3 L, [place] % (Auto) 7.2, Eos % (Auto) 0.0, Baso % (Auto) 0.1, Absolute Neuts (auto) 13.8 H, Absolute Lymphs (auto) 1.00, Nucleated RBC % 0, Sodium 138, Potassium 3.7, Chloride 105, Carbon Dioxide 27.0, Anion Gap 6, BUN 13, Creatinine 1.01, Estim Creat Clear Calc 118.74, Est GFR (MDRD) Af Amer 100, Est GFR (MDRD) Non-Af 82, BUN/Creatinine Ratio 12.9, Glucose 114 H, Calcium 9.0, Total Bilirubin 0.60, Direct Bilirubin 0.17, AST 23, ALT 48, Alkaline Phosphatase 66, Total Protein 7.1, Albumin 3.5, Globulin 3.6 Physical Exam GI GI Narrative: Abdomen- soft, slight tenderness near incision sites. ANUPAMA drain was cleansed with Betadine, suture was trimmed and completely removed with tip intact. 2 x 2 gauze dressing was applied and secured with tape. Assessment & Plan Assessment/Plan (1) Gallstones and inflammation of gallbladder with obstruction: QUALIFIERS: Cholelithiasis location: gallbladder Cholecystitis acuity: chronic Qualified Code(s): K80.11 - Calculus of gallbladder with chronic cholecystitis with obstruction PLAN: I am following this patient in conjunction with Dr. Palma. She has independently evaluated this patient. Labs reviewed. WBC at 16, however patient's procedure entailed significant amount of work likely causing a moderate amount of inflammation Patient tolerated his breakfast Patient tolerated ANUPAMA removal Ready for discharge Charges/Coding Visit Charges Inpatient E&M: 84602 Subs Hosp L1 (Post-op; no charge)
[2025-01-01 11:55] VITALS: BP 132/98; PULSE 94; RESP 18; TEMP 36.8; O2SAT 96
== END 2025-01-01 11:55 | disposition home or self-care (01) ==
LOC: EN 15:38 → MS3 15:38
PROVIDERS: Admitting Provider Surgery; PCP Nurse Practitioner Family; Referring Provider Surgery; Visit Provider Surgery
PROC: (CPT 47610; principal; 2024-12-31 10:40)
DX: K81.2 Acute cholecystitis with chronic cholecystitis (principal); R74.8 Abnormal levels of other serum enzymes; F17.210 Nicotine dependence, cigarettes, uncomplicated; I10 Essential (primary) hypertension; Z79.899 Other long term (current) drug therapy
CPT/HCPCS: 47562; 00790; 36415; 80048; 80076; 85025; 88304; 93005; 94668; 96365; 96366; 96372; 96374; 96375; 96376; 99221; 99406; A4216; G0378; J2405

== ENCOUNTER 2025-02-04 13:24 | Day surgery (SDC) | payer MEDICAID, SELFPAY ==
[2025-02-04] VITALS (10 sets, daily range): BP systolic 126–159; BP diastolic 84–103; PULSE 77–94; RESP 16; TEMP 36.2–36.6; O2SAT 95–98; BMI 33.3
--- NOTE | 2025-02-04 13:30 | RAD_ITS ---
EXAM: ERCP biliary/pancreas CLINICAL HISTORY: Pain TECHNIQUE: ERCP biliary/pancreas fluoroscopy. 14 spot fluoroscopic images submitted FINDINGS: Fluoroscopy time 266.5 seconds. Total dose 184.48 mGy 14 spot fluoroscopic images submitted. The 1st image shows a biliary stent followed by removal and cannulation of the biliary system. Contrast is seen within intrahepatic biliary ducts. Initially a couple filling defects are seen at the common hepatic/upper common bile duct and the caliber of the common bile duct appears small. Subsequent images suggest possible balloon stripping down the common bile duct. Improved duct caliber following without persistent filling defect identified. Last submitted image with partial contrast emptied from the common duct with contrast remaining at the intrahepatic ducts and common hepatic duct. A definite biliary stent is not noted on the last image. Please refer to procedural note for additional detail. RAD/ERCP Biliary/Pancreas IMPRESSION: Fluoroscopy during ERCP as above. Reading Location: [id number]
[2025-02-04] MEDS: 0.9% Normal Saline (1000mL) 1,000 ML 15 ML IV (13:55)
--- NOTE | 2025-02-04 14:28 | PCM.PRE.AN2 ---
ASA Classification* ASA Classification ASA Classification: 2 Assessment & Plan Anesthesia* Anesthesia Assessment Anesthesia Assessment: Discussed sedation and/or anesthesia options, risks, benefits, and alternatives with patient/parents/legal guardian/POA. Questions invited. The patient/parents/legal guardian/POA seems to understand and agrees to proceed with anesthesia plan. Reviewed the physical assessment, medical history, allergy history and patient home medications list prior to surgery/procedure/anesthetic and documented any changes. Performed airway and anesthesia risk assessments. Anesthesia Type Anesthesia Type: MAC Anesthesia Focused Assessment* Temperature: 97.2 F Pulse Rate: 88 Blood Pressure: 159/103 Respiratory Rate: 16 Pulse Ox: 98 Airway Assessment Mouth opens: >3 cm Mallampati Score: II Focused Labs Anesthesia Preop lab: CBC WBC 16.0 K/mm3 (4.4-11.0) H 01/01/25 05:43 01/01/25 RBC 5.36 M/mm3 (4.6-6.2) 01/01/25 05:43 01/01/25 Hgb 16.5 g/dL (13.0-16.5) 01/01/25 05:43 01/01/25 Hct 48.9 % (40-54) 01/01/25 05:43 01/01/25 Plt Count 261 K/mm3 (150-450) 01/01/25 05:43 01/01/25 CHEMISTRY Potassium 3.7 mmol/L (3.5-5.1) 01/01/25 05:43 01/01/25 Sodium 138 mmol/L (136-145) 01/01/25 05:43 01/01/25 BUN 13 mg/dL (7-18) 01/01/25 05:43 01/01/25 Creatinine 1.01 mg/dL (0.70-1.30) 01/01/25 05:43 01/01/25 Glucose 114 mg/dL (74-106) H 01/01/25 05:43 01/01/25 COAG PT 13.4 SECONDS (11.7-14.9) 09/28/24 21:40 09/28/24 Pre-Assessment Diagnosis/Proposed Procedure Planned Operative Procedure(s): ercp stent removal Anesthesia History Anesthesia History - sales lead generator: Anesthesia History - sales lead generator Hx Hospitalization Yes 02/04/25 13:47 Any Problems With Anesthesia No 02/04/25 13:47 Cholinesterase deficiency No 02/04/25 13:47 You/Your Family Experience No 02/04/25 13:47 fever (hyperthermia) with Relationship Recent Exposure to Contagious No 02/04/25 13:47 Disease Does patient have nerve No 02/04/25 13:47 stimulator Patient instructed to have device shut off --Does patient have Pacemaker No 02/04/25 13:47 or ICD? When Was Last Pacemaker Check QUESTION #4 FULL TEXT: You/Your Family Experience fever (hyperthermia) with Anesthesia Last Oral Intake Last Oral intake: Last Oral Intake NPO since 22:30 02/04/25 13:47 Meds taken in AM with sips of Yes 02/04/25 13:47 water? Meds patient instructed to take am of surgery PONV PONV - sales lead generator: PONV - sales lead generator Female No 02/04/25 13:47 HX of Motion Sickness No 02/04/25 13:47 HX of N/V After Surgery No 02/04/25 13:47 Non-Smoker No 02/04/25 13:47 Duration of Surgery greater No 02/04/25 13:47 than 60 minutes Number of Risk Factors PONV Score Height & Weight Height & Weight: Anesthesia: Height & Weight Height 6 ft 3 in 02/04/25 13:47 Weight: 121 kg 02/04/25 13:47 Body Mass Index (BMI) 33.3 02/04/25 13:47 Respiratory Assessment Respiratory Assessment - sales lead generator: Respiratory Tract Infection Hx - sales lead generator Hx Respiratory Tract Infection Yes: Chronic smoker's cough. 02/04/25 13:47 No recent infections. STOP Sleep Apnea STOP Sleep Apnea - sales lead generator: STOP Sleep Apnea - sales lead generator Hx Hypertension Yes 02/04/25 13:47 Hx Sleep Apnea No 02/04/25 13:47 CPAP BIPAP Do you snore loudly (louder No 02/04/25 13:47 than talking or can be heard Do you often feel tired/ No 02/04/25 13:47 fatigued/ sleepy during daytime? Has anyone observed you stop No 02/04/25 13:47 breathing during sleep? STOP Results Negative 02/04/25 13:47 QUESTION #5 FULL TEXT : Do you snore loudly (louder than talking or can be heard through closed doors)? Tobacco Use History Tobacco Use History - sales lead generator: Tobacco Use History - sales lead generator Tobacco Use Smoking Status Current every day smoker 02/04/25 13:47 Hx Tobacco Use No 02/04/25 13:47 Years Smoking Packs Smoked per Day Smoking Cessation Date was within the last 15 years Hx Smoking Cessation Date Hx Smoking Cessation Counseling Hematologic Medial History Hematologic Hx - sales lead generator: Hematologic Medical Hx - physician coder Hx of Blood Transfusion No 02/04/25 13:47 Hx of Transfusion in last 3 No 02/04/25 13:47 Months Date of Last Transfusion (if within last 3 months) Ever experience any problems No 02/04/25 13:47 with transfusion(s)? Specify any problems Hx of Preganancy in last 3 N/A 02/04/25 13:47 Months Nurse Filling Out Transfusion CPARSONS 02/04/25 13:47 & Questions: Date: 02/04/25 02/04/25 13:47 Time: 13:54 02/04/25 13:47 Patient unable to answer at this time (ie. confused, unrespo /Reproduction History /Reproductive History - sales lead generator: /Reproductive Hx- sales lead generator Hx Now Gestational Age (in weeks): EDC: Hx Hx Para Hx Section SAB No 02/04/25 13:47 Active Medications Active Medications: Current Medications Generic Name Dose Route Start Last Admin Trade Name Freq PRN Reason Stop Dose Admin Sodium Chloride 1,000 mls @ 15 mls/hr 02/04/25 13:40 02/04/25 13:55 IV 15 mls/hr .Q48H BRIANA Administration PFSH Medical History Marijuana use Back pain Injury of back Migraine headache Injury of head and neck Blackout Gastric reflux Shortness of breath on exertion Leg cramps History of pain when walking Cholelithiasis History of alcohol abuse Allergic rhinitis Tachycardia Choledocholithiasis Obstructive jaundice Nasal polyps Hypertension Home Medications ?Medication ?Instructions ?Recorded ?Last Taken ?Type amlodipine 5 mg tablet 10 mg PO DAILY 12/18/24 02/04/25 12:45 History Allergy/AdvReac Type Severity Reaction Status Date / Time lisinopril Allergy Severe FELT LIKE Verified 01/30/25 14:54 THROAT WAS SWELLING SHUT Sulfa (Sulfonamide Allergy Intermediate Anaphylaxis Verified 01/30/25 14:54 Antibiotics) morphine Allergy Mild Vomiting Verified 01/30/25 14:54 Penicillins AdvReac Intermediate Shortness Verified 01/30/25 14:54 of breath amoxicillin AdvReac Mild TWITCHING Verified 01/30/25 14:54 hydralazine AdvReac tingling Verified 01/30/25 14:54 to arms and pressure to chest Family History Mother Breast cancer age 66 with metastatic breast CA. Father CAD (coronary artery disease) First [place] age 35, age 52 secondary to cardiac event. Myocardial infarction First MS age 35, age 52 secondary to cardiac event. Hypertension Heart disease Surgical History Status post cholecystectomy S/P ERCP History of oral surgery Social History household members: other details: His 93 y/o aunt lives with him and he cares for her. Smoking Status: Current every day smoker tobacco type: cigarettes alcohol intake: former details: Sober x ~ 18 years (09/2024 evaluation) substance use type: marijuana Review of Systems (Anesthesia) ROS Narrative System reviewed and no additional complaints, except as documented.
--- NOTE | 2025-02-04 14:30 | FLU_PTH ---
PATIENT: KAREN CESAR LOC: EN U#:[id number] AGE/SX: 54/M ROOM: RE02/04/[address]: Dr. Mitch Rendon DO : 1970 BED: DIS: 02/04/2025 SPEC #: [id number] RECD: 02/05/25 09:06 STATUS: BRYANT WILBERT #: [id number] MARCELINO: 02/04/25 14:[address]: Mitch Rendon DEPT: CYTOLOGY RECD BY: Hermilo Barnett ENTERED: 02/05/25 09:06 SP TYPE: Fluid OTHR DR: Greer Patel, [facility], ILLU[employer]ATOR [facility]-C Tissues: A - Biliary tract, NOS Procedures: Special Stain Group II Surgery Specimen Level IV Cytospin Fluid HEADER OPERATION: ERCP with stent pull PRE-OP DIAGNOSIS: Status post cholecystectomy, gallstones, choledocholithiasis, status post ERCP, gallstones and inflammation of gallbladder with obstruction TISSUE SUBMITTED: A- Biliary stent fluid for cytology DIAGNOSIS CYTOLOGY A. Biliary stent: * No malignant cells identified. COMMENT The slides were reviewed in intradepartmental consultation by Dr Skyler Lees ([facility]). CYTOLOGY STUDY Slides are reviewed. CYTOLOGY GROSS A. Received is 12cm black/blue stent with 0.3 ml of yellow material labeled with the patient's name and and designated per the requisition as Biliary stent. Submitted for cytology preparation (cytospin x1, cellblock x1). Mr 02/05/2025 CPT: 29280
--- NOTE | 2025-02-04 14:43 | PCM.HP.STD ---
HPI - General General Date of Admission: 02/04/25 Date of Service: 02/04/25 Chief Complaint: stent removal HPI Narrative KAREN CESAR, is a 54 M who presents for repeat ERCP with stent removal. He is s/p laparoscopic cholecystectomy with ANUPAMA placement by Dr. Palma on 12/31/24. Patient tolerated the procedure well. Patient notes minimal amount of umbilical incisional pain. He denies nausea, vomiting, fever. He notes appetite has returned to normal. He notes occasional intermittent loose stools. Pathology demonstrated acute and chronic hemorrhagic and ulcerated cholecystitis. [facility] Medical History (Updated 02/04/25 @ 14:[address] Mitch Rendon, DO) Choledocholithiasis Marijuana use Back pain Injury of back Migraine headache Injury of head and neck Blackout Gastric reflux Shortness of breath on exertion Leg cramps History of pain when walking Cholelithiasis History of alcohol abuse Allergic rhinitis Tachycardia Obstructive jaundice Nasal polyps Hypertension Home Medications ?Medication ?Instructions ?Recorded ?Last Taken ?Type amlodipine 5 mg tablet 10 mg PO DAILY 12/18/24 02/04/25 12:45 History Allergy/AdvReac Type Severity Reaction Status Date / Time lisinopril Allergy Severe FELT LIKE Verified 01/30/25 14:54 THROAT WAS SWELLING SHUT Sulfa (Sulfonamide Allergy Intermediate Anaphylaxis Verified 01/30/25 14:54 Antibiotics) morphine Allergy Mild Vomiting Verified 01/30/25 14:54 Penicillins AdvReac Intermediate Shortness Verified 01/30/25 14:54 of breath amoxicillin AdvReac Mild TWITCHING Verified 01/30/25 14:54 hydralazine AdvReac tingling Verified 01/30/25 14:54 to arms and pressure to chest Family History Mother Breast cancer age 66 with metastatic breast CA. Father CAD (coronary artery disease) First [place] age 35, age 52 secondary to cardiac event. Myocardial infarction First MA age 35, age 52 secondary to cardiac event. Hypertension Heart disease Surgical History Status post cholecystectomy S/P ERCP History of oral surgery Social History household members: other details: His 93 y/o aunt lives with him and he cares for her. Smoking Status: Current every day smoker tobacco type: cigarettes alcohol intake: former details: Sober x ~ 18 years (09/2024 evaluation) substance use type: marijuana ROS Constitutional Constitutional: Denies fatigue, fever(s), poor appetite, weight gain or weight loss Gastrointestinal Gastrointestinal: Denies belching, bloating, change in bowel habits, change in stool character, chewing difficulty, coffee ground emesis, constipation, cramping, diarrhea, dyspepsia, dysphagia, early satiety, excessive flatus, fecal incontinence, heartburn, hematemesis, hematochezia, hemorrhoids, loose stools, melena, nausea, odynophagia, rectal bleeding, tenesmus, vomiting or weight changes Vital Signs Vital Signs Vital Signs: 02/04/25 13:47 02/04/25 13:47 02/04/25 14:29 Temperature 97.2 F L 97.2 F L Temperature Source Temporal Pulse Rate 88 88 Respiratory Rate 16 16 Respiratory Pattern Normal Blood Pressure 159/103 H 159/103 H Blood Pressure Mean 121 Blood Pressure Source Monitor Blood Pressure Position Semi-Fowlers Blood Pressure Location Left Arm Pulse Ox 98 98 Oxygen Delivery Method Room Air Weight Weight: 266 lb 12.149 oz Body Mass Index (BMI) 33.3 Physical Exam Const alert, oriented x3, no apparent distress and healthy appearing General Appearance: cooperative GI normal to inspection, nondistended, normoactive bowel sounds, soft to palpation, non-tender and non-distended Percussion: normal to percussion Rectal Exam: deferred Assessment & Plan Assessment/Plan (1) Status post cholecystectomy: (2) Gallstones: (3) Choledocholithiasis: (4) S/P ERCP: (5) Gallstones and inflammation of gallbladder with obstruction: QUALIFIERS: Cholelithiasis location: gallbladder Cholecystitis acuity: chronic Qualified Code(s): K80.11 - Calculus of gallbladder with chronic cholecystitis with obstruction (6) Elevated liver enzymes: PLAN: Patient will undergo ERCP with stent removal. He was explained alternatives, risk, benefits include not withstanding bleeding, infection, sepsis, perforation, need for emergent urgent . He will have an ASA of 3.
--- NOTE | 2025-02-04 15:58 | OP.CCLET_ITS ---
02/04/2025 Greer Patel [facility], Job Site Superintendent-c Re : ERCP procedure for Richy Patel This procedure was performed on Tuesday, February 04, 2025. My impressions and recommendations are as follows: Impressions : - The left and right hepatic ducts and all intrahepatic branches, common bile duct and common hepatic duct were dilated, with a stone causing an obstruction. - The patient has had a cholecystectomy. - Choledocholithiasis was found. Complete removal was accomplished by biliary sphincterotomy and balloon extraction. - A biliary sphincterotomy was performed. - The biliary tree was swept. - One stent was removed from the biliary tree. Recommendations : My findings are described in the full procedure note, which is enclosed. If I can be of further assistance, please feel free to contact me at . Sincerely, Mitch Rendon, 02/04/2025 3:58:11 PM This report has been signed electronically.
--- NOTE | 2025-02-04 15:58 | OP.ERCP_ITS ---
Patient Name: Richy Jose Procedure Date: 02/04/2025 2:51 PM Date of : 1970 Age: 54 Procedure: ERCP Indications: Bile duct stone(s), Stent removal Providers: Mitch Rendon DO Referring MD: Greer Patel [facility], Aviation Electronic Warfare Operator-[employer] Medicines: General Anesthesia Patient Profile: This is a 54 year old male. Refer to note in patient chart for documentation of history and physical. Patient has symptoms. Complications: No immediate complications. Procedure: Pre-Anesthesia Assessment: - Prior to the procedure, a History and Physical was performed, and patient medications and allergies were reviewed. The patient is competent. The risks and benefits of the procedure and the sedation options and risks were discussed with the patient. All questions were answered and informed consent was obtained. Patient identification and proposed procedure were verified by the physician in the pre-procedure area. Mental Status Examination: alert and oriented. Airway Examination: normal oropharyngeal airway and neck mobility. Respiratory Examination: clear to auscultation. CV Examination: normal. ASA Grade Assessment: II - A patient with mild systemic disease. After reviewing the risks and benefits, the patient was deemed in satisfactory condition to undergo the procedure. The anesthesia plan was to use monitored anesthesia care (MAC). Immediately prior to administration of medications, the patient was re-assessed for adequacy to receive sedatives. The heart rate, respiratory rate, oxygen saturations, blood pressure, adequacy of pulmonary ventilation, and response to care were monitored throughout the procedure. The physical status of the patient was re-assessed after the procedure. After obtaining informed consent, the scope was passed under direct vision. Throughout the procedure, the patient's blood pressure, pulse, and oxygen saturations were monitored continuously. The Duodenoscope was introduced through the mouth, and advanced to the duodenum and used to inject contrast into the bile duct. The ERCP was accomplished without difficulty. The patient tolerated the procedure well. Scope In: 3:18:57 PM Scope Out: 3:49:07 PM Total Procedure Duration Time 0 hours 30 minutes 10 seconds Findings: The night clerk auditor film was normal. The scope was advanced to a normal major papilla in the descending duodenum. Examination of the pharynx, larynx and associated structures, and upper GI tract was normal. The minor papilla was not found. A long 0.025 inch Jagwire was passed into the biliary tree. The short-nosed traction sphincterotome was passed over the guidewire and the bile duct was then deeply cannulated. Contrast was injected. I personally interpreted the bile duct images. There was brisk flow of contrast through the ducts. Image quality was adequate. Contrast extended to the entire biliary tree. Opacification of the entire biliary tree except for the cystic duct and gallbladder, entire biliary tree except for the gallbladder, common bile duct, gallbladder, common hepatic duct, hepatic duct bifurcation, left and right hepatic ducts with secondary or tertiary branches of the intrahepatic ducts (Bismuth IV), left and right hepatic ducts and all intrahepatic branches and entire biliary tree was successful. The maximum diameter of the ducts was 10 mm. The entire biliary tree except for the cystic duct and gallbladder, entire biliary tree except for the gallbladder, entire opacified area, main bile duct, common bile duct, common hepatic duct, hepatic duct bifurcation and left and right hepatic ducts and all intrahepatic branches contained multiple stones, the largest of which was 7 mm in diameter. The common bile duct, common hepatic duct, hepatic duct bifurcation and left and right hepatic ducts and all intrahepatic branches were diffusely dilated, with a stone causing an obstruction. The largest diameter was 13 mm. A cholecystectomy had been performed. A 5 mm biliary sphincterotomy was made with a braided traction (standard) sphincterotome using ERBE electrocautery. There was no post-sphincterotomy bleeding. The biliary tree was swept with a 12 mm balloon starting at the bifurcation, left intrahepatic duct(s), left main hepatic duct, right intrahepatic duct(s) and right main hepatic duct. Sludge was swept from the duct. All stones were removed. One stent was removed from the biliary tree using a snare and sent for cytology. The stent was found to be occluded via the water column test. Impression: - The left and right hepatic ducts and all intrahepatic branches, common bile duct and common hepatic duct were dilated, with a stone causing an obstruction. - The patient has had a cholecystectomy. - Choledocholithiasis was found. Complete removal was accomplished by biliary sphincterotomy and balloon extraction. - A biliary sphincterotomy was performed. - The biliary tree was swept. - One stent was removed from the biliary tree. Procedure Code(s): --- Professional --- 82459, Endoscopic retrograde cholangiopancreatography (ERCP); with removal of foreign body(s) or stent(s) from biliary/pancreatic duct(s) 92964, Endoscopic retrograde cholangiopancreatography (ERCP); with removal of calculi/debris from biliary/pancreatic duct(s) 12468, Endoscopic retrograde cholangiopancreatography (ERCP); with sphincterotomy/papillotomy 59046, 26, Endoscopic catheterization of the biliary ductal system, radiological supervision and interpretation CPT copyright 2021 [employer]. All rights reserved. The codes documented in this report are preliminary and upon project controller review may be revised to meet current compliance requirements. Mitch Rendon DO 02/04/2025 3:58:11 PM This report has been signed electronically. Number of Addenda: 0 Note Initiated On: 02/04/2025 2:51 PM
--- NOTE | 2025-02-04 16:11 | PCM.POST.ANE ---
Anesthesia: Postop Eval I Current Vital Signs Temperature: 97.6 F Pulse Rate: 87 Blood Pressure: 126/84 Respiratory Rate: 16 Pulse Ox: 96 Oxygen Delivery Method: Room Air Assessment Airway patent: Yes Spontaneous unlabored respirations: Yes Mental status: Awake nausea: No Vomiting: No Anesthesia Complication: No Fluid Hydration Crystalloid volume administer (ml): 100 Total IV fluid infused: 100 Progress Note Anesthesia document: Postop Eval 1 completed: Yes
--- NOTE | 2025-02-04 16:12 | PCM.POSTANE2 ---
Anesthesia Postop Eval I Sum Postop Eval Completion status Anesthesia document: Postop Eval 1 completed: Yes Anesthesia Postop Eval I Summary Anesthesia Postop Eval I Summary: Anesthesia Postop Eval I: Assessment Summary Airway patent Yes 02/04/25 16:12 Spontaneous unlabored Yes 02/04/25 16:12 respirations Mental status Awake 02/04/25 16:12 nausea No 02/04/25 16:12 Vomiting No 02/04/25 16:12 Anesthesia Postop Eval I: Fluid Summary Crystalloid volume administer 100 02/04/25 16:12 (ml) Colloids volume administered ( ml) Blood Product volume administered (ml) Total IV fluid infused 100 02/04/25 16:12 Anesthesia Postop Eval I: Summary Notes Anesthesia Complication No 02/04/25 16:12 Anesthesia Complication Comment: Post-operative progress note Anesthesia: Postop Eval II Evaluation Mental status: Awake Pain Level: 0 nausea: No Vomiting: No
--- NOTE | 2025-02-04 16:31 | PCM.POST.ANE ---
Anesthesia: Postop Eval I Current Vital Signs Temperature: 97.5 F Pulse Rate: 77 Blood Pressure: 131/85 Respiratory Rate: 16 Pulse Ox: 95 Assessment Airway patent: Yes Spontaneous unlabored respirations: Yes nausea: No Vomiting: No Anesthesia Complication: No Fluid Hydration Crystalloid volume administer (ml): 300 Total IV fluid infused: 300 Progress Note Anesthesia document: Postop Eval 1 completed: Yes
== END 2025-02-04 17:11 | disposition home or self-care (01) ==
LOC: EN 13:24 → AC 13:25
PROVIDERS: PCP Nurse Practitioner Family; Referring Provider Nurse Practitioner Family; Visit Provider Internal Medicine Gastroenterology
PROC: (CPT 43260; principal; 2025-02-04 14:10)
DX: Z46.59 Encounter for fitting and adjustment of other gastrointestinal appliance and device (principal); F17.210 Nicotine dependence, cigarettes, uncomplicated; I10 Essential (primary) hypertension; Z90.49 Acquired absence of other specified parts of digestive tract; K21.9 Gastro-esophageal reflux disease without esophagitis; K80.51 Calculus of bile duct without cholangitis or cholecystitis with obstruction; Z79.899 Other long term (current) drug therapy
CPT/HCPCS: 43262; 43275; 43264; 74330; 76000; 88108; 88305; 88313; J2405

== ENCOUNTER → 2025-02-25 | Outpatient (CLI) | payer MEDICAID, SELFPAY ==
[2025-02-25 15:24] LABS: Absolute Lymphocyte Count 1.99 X10^3/uL (0.83-4.51); Absolute Neutrophil Count 5.3 X10^3/uL (2.0-7.7); Basophil# 0.12 X10^3/uL; Basophil% 1.4 % (0-1); Eosinophil# 0.26 X10^3/uL; Eosinophils% 3.1 % (0-5); Lymphocyte # 1.99 X10^3/ul (0.83-4.51); Mean Corp Hgb Conc 34.8 g/dL (32-36); Mean Corpuscular Hgb 31.4 pg (27.0-32.0); Mean Corpuscular Volume 90.1 fL (80-94); Mean Platelet Vol. 9.6 fl (6.2-12.0); Monocyte# 0.62 X10^3/uL; Monocyte% 7.5 % (0-10); NRBC Flagged by Analyzer 0 % (0-5); Neutrophil # 5.26 X10^3/uL (2.7-7.7); Neutrophil % 63.6 % (47-70); Platelet Count 289 K/mm3 (150-450); RBC Distribution Width CV 12.7 % (11.6-14.6); RBC Distribution Width SD 42.1 fl (35.1-43.9); Red Blood Count 5.77 M/mm3 (4.6-6.2); White Blood Count 8.3 K/mm3 (4.4-11.0)
[2025-02-25 15:57] LABS: Hemoglobin 18.1 g/dL (13.0-16.5)
[2025-02-25 15:58] LABS: Differential Indicated SCAN CRITERIA MET
[2025-02-25 16:40] LABS: Ferritin 382 ng/mL (37-417)
[2025-02-25 16:42] LABS: AST(SGOT) 18 U/L (<=37); Alanine Aminotransfer ALT/SGPT 23 U/L (<=46); Albumin, Serum 4.3 g/dL (3.5-5.0); Alkaline Phosphatase 76 U/L (40-129); Bilirubin, Direct 0.18 mg/dL (0.00-0.30); Globulin 2.9 g/dL (2.2-4.2); Protein, Total 7.2 g/dL (5.9-8.4); Total Bilirubin 0.44 mg/dL (0.00-1.30)
[2025-02-25 17:06] LABS: Iron Binding Capacity,Total 275 ug/dL (250-450)
[2025-02-25 17:09] LABS: Iron 173 ug/dL (65-175); Iron Binding Capacity,Unsat 102 ug/dL (228-428); PERCENT IRON SATURATION 62.9 % (9-55)
== END | disposition home or self-care (01) ==
LOC: LAB 14:39
PROVIDERS: PCP Nurse Practitioner Family; Referring Provider Nurse Practitioner Acute Care; Visit Provider Nurse Practitioner Acute Care
DX: K80.50 Calculus of bile duct without cholangitis or cholecystitis without obstruction (principal); R79.89 Other specified abnormal findings of blood chemistry; Z90.49 Acquired absence of other specified parts of digestive tract; D58.2 Other hemoglobinopathies
CPT/HCPCS: 36415; 80076; 82728; 83540; 83550; 85025

== ENCOUNTER → 2025-06-30 | Outpatient (CLI) | payer MEDICAID, SELFPAY ==
[2025-06-30 16:49] LABS: Hematocrit 51.5 % (40-54); Hemoglobin 17.9 g/dL (13.0-16.5); Mean Corp Hgb Conc 34.8 g/dL (32-36); Mean Corpuscular Volume 90.7 fL (80-94); Mean Platelet Vol. 9.5 fl (6.2-12.0); Platelet Count 272 K/mm3 (150-450); RBC Distribution Width CV 13.0 % (11.6-14.6); RBC Distribution Width SD 43.8 fl (35.1-43.9); Red Blood Count 5.68 M/mm3 (4.6-6.2); White Blood Count 9.2 K/mm3 (4.4-11.0)
[2025-06-30 17:20] LABS: AST(SGOT) 18 U/L (<=37); Alanine Aminotransfer ALT/SGPT 17 U/L (<=46); Albumin, Serum 4.3 g/dL (3.5-5.0); Alkaline Phosphatase 63 U/L (40-129); Anion Gap 12 (5-15); BUN 14 mg/dL (4-19); BUN/Creat Ratio 14.3 RATIO (10-20); Calcium,Total 9.3 mg/dL (7.6-11.0); Carbon Dioxide 23.0 mmol/L (21.0-32.0); Chloride 105 mmol/L (98-108); Globulin 2.8 g/dL (2.2-4.2); Glucose 102 mg/dL (70-99); Potassium 3.9 mmol/L (3.3-5.1)
== END | disposition home or self-care (01) ==
LOC: VSLAB 15:53
PROVIDERS: PCP Nurse Practitioner Family; Visit Provider Nurse Practitioner Family
DX: I10 Essential (primary) hypertension (principal)
CPT/HCPCS: 36415; 80053; 85027